=== PATIENT | female | born 1960 | race Caucasian/White ===

== ENCOUNTER 2017-06-30 15:12 | Inpatient (IN) | payer MEDICAID, SELFPAY ==
[2017-06-30] VITALS (8 sets, daily range): BP systolic 106–125; BP diastolic 60–69; PULSE 86–115; RESP 18–24; TEMP 36.5–37.3; O2SAT 80–97; BMI 20.9; BMI 21.2
--- NOTE | 2017-06-30 15:20 | XR_ITS ---
XR chest 2V HISTORY: Shortness of air with cough ITS.REASON: SOA ORDERING PHYSICIAN: Crow Herman PATIENT AGE: 56 years COMPARISON: 03/22/2017 FINDINGS: The cardiomediastinal silhouette and pulmonary vascularity are within normal limits. Postsurgical changes are present in the left upper lobe with suture line and scarring.. No lobar consolidation or collapse. There is mild hyperinflation with hyperlucency of the upper lobes consistent with COPD. No acute bony abnormalities. IMPRESSION: No acute finding. COPD with postsurgical changes
--- NOTE | 2017-06-30 16:14 | HMH.EDSOB ---
ED Disposition Clinical Impression: COPD exacerbation, Respiratory acidosis Disposition: Still a Patient Condition on Discharge: Fair Prescriptions: Azithromycin [Zithromax 250mg tab] 250 mg PO DIRECTED #6 tab methylPREDNISolone [Medrol] 32 mg PO DAILY #16 tab Referrals: Justen Briggs MD [Primary Care Provider] - - Critical Care Critical Care Time: No Attestation: On 06/30/17, the high probability of a clinically significant, sudden or life threatening deterioration of the following system(s) required my full and direct attention, intervention and personal management. The time I documented below is in addition to time spent performing reported procedures but includes the following listed in this critical care notation. Medical Decision Making - Medical Records Medical records reviewed: Yes: I reviewed the patient's medical records. Vital Signs: 06/30/17 15:44 Temperature 99.2 F Temperature Source Oral Pulse Rate [Right Brachial] 86 Respiratory Rate 24 Blood Pressure [Right Arm] 120/66 Blood Pressure Mean [Right Arm] 84 Blood Pressure Source [Right Arm] Automatic Cuff Blood Pressure Position [Right Arm] Supine 02 Sat by Pulse Oximetry 80 L Oxygen Delivery Method Room Air - Lab Data Lab Results 06/30/17 15:41: O2 % 26%. 1.5 lpm nc., ABG pH 7.34 L, ABG pCO2 51.8 H, ABG pO2 53.1 L, ABG HCO3 27.3 H, ABG Total CO2 28.9 H, ABG O2 Saturation 88 L, ABG Base Excess 1.5, Dg Test Acceptable 06/30/17 16:00: WBC 15.6 H, RBC 3.82 L, Hgb 12.6, Hct 38.6, MCV 101.0 H, MCH 33.0 H, MCHC 32.7, RDW 12.6, Plt Count 431 H, MPV 7.3 L, Neut % (Auto) 84.7 H, Lymph % (Auto) 8.5 L, [place] % (Auto) 6.5, Eos % (Auto) 0.3, Baso % (Auto) 0.1, Neut # (Auto) 13.2 H, Lymph # (Auto) 1.3, [place] # (Auto) 1.0, Eos # (Auto) 0.0, Baso # (Auto) 0.0, Total Counted 100, Neutrophils % (Manual) 89 H, Lymphocytes % (Manual) 6 L, Monocytes % (Manual) 5, Platelet Estimate Normal, RBC Morphology Normal 06/30/17 16:00: Sodium 139, Potassium 3.5, Chloride 101, Carbon Dioxide 32, Anion Gap 9.5, BUN 12, Creatinine 1.11 H, Estimated Creat Clear 54, Estimated GFR 51 L, Est GFR ( Amer) 62, Glucose 160 H, Calcium 9.2, Total Bilirubin 0.5, AST 29, ALT 44, Alkaline Phosphatase 119 H, Troponin I < 0.02, Total Protein 7.7, Albumin 3.2 L, Globulin 4.5 H, Albumin/Globulin Ratio 0.7 L 06/30/17 16:00: Lactic Acid 1.5 06/30/17 16:00: Influenza Type A Ag Negative, Influenza Type B Ag Negative Result diagrams: 06/30/17 16:00 06/30/17 16:00 Orders (Tests/Meds): ED MEDICATIONS Discontinued Medications Generic Name Dose Route Start Last Admin Trade Name Freq PRN Reason Stop Dose Admin Albuterol/Ipratropium 3 ml 06/30/17 16:17 06/30/17 16:24 Duoneb 3ml Neb IH 06/30/17 16:18 3 ml ONCE ONE Administration Azithromycin 500 mg/ Sodium 250 mls @ 250 mls/hr 06/30/17 16:28 06/30/17 16:34 Chloride IV 06/30/17 16:29 250 mls/hr ONCE ONE Administration Protocol Methylprednisolone Sodium Succinate 125 mg 06/30/17 16:17 06/30/17 16:24 Solu-Medrol 125mg/2ml Vial IV 06/30/17 16:18 125 mg ONCE ONE Administration ORDERS Category Date Time Status Blood Culture Stat Micro 06/30/17 16:16 Ordered Sputum Culture & Gram Stain Stat Micro 06/30/17 15:41 Ordered ECG Request by /Nse Stat Y 06/30/17 15:41 Ordered - Radiology Data #1 Image(s): Chest Image Reviewed: Yes I have reviewed radiologist's interpretation Preliminary Findings: Normal/NAD, Abnormal - Roberto Inquiry Pt receiving controlled substance: No Roberto was queried for this patient: No Medical Decision Making Narrative: Patient felt better after DuoNeb and steroids. We discussed discharge instruction. She is feeling comfortable with home treatment. 1730 patient changes her mind and agreed for admission. I called Dr. Gutierrez was gynaecological oncologist for Dr. Briggs who accepted the patient for steroid therapy and DuoNeb's. Patient was admitted in a he
[2017-06-30 16:19] LABS: Basophils % 0.1 % (0.1-2.0); Eosinophils % 0.3 % (0.1-12.0); Hematocrit 38.6 % (37.0-47.0); Hemoglobin 12.6 g/dL (12.2-16.2); Lymphocytes # 1.3 K/mm3 (0.7-4.5); Lymphocytes % 8.5 K/mm3 (10-50); Mean Corpuscular HGB Conc 32.7 g/dL (31.8-35.4); Mean Platelet Volume 7.3 fl (7.4-10.4); Monocytes % 6.5 % (1.7-9.3); Neutrophils # 13.2 K/mm3 (1.8-7.8); Neutrophils % 84.7 % (37.0-80.0); Platelet Count 431 K/mm3 (142-424); Red Blood Count 3.82 M/mm3 (4.20-5.40); Red Cell Distribution Width 12.6 % (11.5-17.5); White Blood Count 15.6 K/mm3 (4.8-10.8)
--- NOTE | 2017-06-30 16:19 | ED_ITS ---
ED Disposition Clinical Impression: COPD exacerbation, Respiratory acidosis Disposition: Still a Patient Condition on Discharge: Fair Prescriptions: Azithromycin [Zithromax 250mg tab] 250 mg PO DIRECTED #6 tab methylPREDNISolone [Medrol] 32 mg PO DAILY #16 tab Referrals: Justen Briggs MD [Primary Care Provider] - - Critical Care Critical Care Time: No Attestation: On 06/30/17, the high probability of a clinically significant, sudden or life threatening deterioration of the following system(s) required my full and direct attention, intervention and personal management. The time I documented below is in addition to time spent performing reported procedures but includes the following listed in this critical care notation. Medical Decision Making - Medical Records Medical records reviewed: Yes: I reviewed the patient's medical records. Vital Signs: 06/30/17 15:44 Temperature 99.2 F Temperature Source Oral Pulse Rate [Right Brachial] 86 Respiratory Rate 24 Blood Pressure [Right Arm] 120/66 Blood Pressure Mean [Right Arm] 84 Blood Pressure Source [Right Arm] Automatic Cuff Blood Pressure Position [Right Arm] Supine 02 Sat by Pulse Oximetry 80 L Oxygen Delivery Method Room Air - Lab Data Lab Results 06/30/17 15:41: O2 % 26%. 1.5 lpm nc., ABG pH 7.34 L, ABG pCO2 51.8 H, ABG pO2 53.1 L, ABG HCO3 27.3 H, ABG Total CO2 28.9 H, ABG O2 Saturation 88 L, ABG Base Excess 1.5, Dg Test Acceptable 06/30/17 16:00: WBC 15.6 H, RBC 3.82 L, Hgb 12.6, Hct 38.6, MCV 101.0 H, MCH 33.0 H, MCHC 32.7, RDW 12.6, Plt Count 431 H, MPV 7.3 L, Neut % (Auto) 84.7 H, Lymph % (Auto) 8.5 L, [place] % (Auto) 6.5, Eos % (Auto) 0.3, Baso % (Auto) 0.1, Neut # (Auto) 13.2 H, Lymph # (Auto) 1.3, [place] # (Auto) 1.0, Eos # (Auto) 0.0, Baso # (Auto) 0.0, Total Counted 100, Neutrophils % (Manual) 89 H, Lymphocytes % (Manual) 6 L, Monocytes % (Manual) 5, Platelet Estimate Normal, RBC Morphology Normal 06/30/17 16:00: Sodium 139, Potassium 3.5, Chloride 101, Carbon Dioxide 32, Anion Gap 9.5, BUN 12, Creatinine 1.11 H, Estimated Creat Clear 54, Estimated GFR 51 L, Est GFR ( Amer) 62, Glucose 160 H, Calcium 9.2, Total Bilirubin 0.5, AST 29, ALT 44, Alkaline Phosphatase 119 H, Troponin I < 0.02, Total Protein 7.7, Albumin 3.2 L, Globulin 4.5 H, Albumin/Globulin Ratio 0.7 L 06/30/17 16:00: Lactic Acid 1.5 06/30/17 16:00: Influenza Type A Ag Negative, Influenza Type B Ag Negative Result diagrams: 06/30/17 16:00 06/30/17 16:00 Orders (Tests/Meds): ED MEDICATIONS Discontinued Medications Generic Name Dose Route Start Last Admin Trade Name Freq PRN Reason Stop Dose Admin Albuterol/Ipratropium 3 ml 06/30/17 16:17 06/30/17 16:24 Duoneb 3ml Neb IH 06/30/17 16:18 3 ml ONCE ONE Administration Azithromycin 500 mg/ Sodium 250 mls @ 250 mls/hr 06/30/17 16:28 06/30/17 16: 34 Chloride IV 06/30/17 16:29 250 mls/hr ONCE ONE Administration Protocol Methylprednisolone Sodium Succinate 125 mg 06/30/17 16:17 06/30/17 16:24 Solu-Medrol 125mg/2ml Vial IV 06/30/17 16:18 125 mg ONCE ONE Administration ORDERS Category Date Time Status Blood Culture Stat Micro 06/30/17 16:16 Ordered Sputum Culture & Gram Stain Stat Micro 06/30/17 15:41 Ordered ECG Request by /Nse Stat Y 06/30/17 15:41 Ordered
[2017-06-30 16:22] LABS: MANUAL DIFFERENTIAL MANUAL DIFFERENTIAL (MANUAL DIFF)
[2017-06-30 16:31] LABS: Anion Gap 9.5 mEq/L (5-15); Blood Urea Nitrogen 12 mg/dL (7-18); Carbon Dioxide 32 mmol/L (21.0-32.0); Chloride 101 mmol/L (98-107); Creatinine Clearance Estimated 54 mL/min (0-300); Creatinine,Serum 1.11 mg/dL (0.55-1.02); Potassium 3.5 mmoL/L (3.5-5.1); Sodium 139 mmol/L (136-145); Troponin I < 0.02 ng/ml (0.00-0.06)
[2017-06-30 16:32] LABS: Alanine Aminotransferase 44 U/L (12-78); Albumin Level 3.2 gm/dL (3.4-5.0); Albumin/Globulin Ratio 0.7 (1.1-1.8); Alkaline Phosphatase 119 U/L (46-116); Aspartate Amino Transferase 29 U/L (15-37); Bilirubin,Total 0.5 mg/dL (0.2-1.0); Calcium 9.2 mg/dL (8.5-10.1); Estimated Glomerular Filt Rate 51 ml/min (>60); GFR (African American) 62 ML/MIN (>60); Globulin 4.5 gm/dl (1.3-3.2); Glucose 160 mg/dL (74-106); Total Protein,Serum 7.7 gm/dL (6.4-8.2)
[2017-06-30 16:34] LABS: Lactic Acid 1.5 mmol/L (0.4-2.0)
--- NOTE | 2017-06-30 16:34 | PC.NURSE ---
Removed O2 to recheck room air sat, within 3 minutes pt dropped to 84%. Reapplied oxygen at 2lnc.
[2017-06-30 16:46] LABS: ABG Base Excess 1.5 mmol/L (-2.4-2.3); ABG HCO3 27.3 mmhg (22.0-26.0); ABG Oxygen Saturation 88 % (90-100); ABG PH 7.34 mmol/L (7.35-7.45); ABG PO2 53.1 mmhg (80-100); ABG TCO2 28.9 mmhg (23-27)
[2017-06-30 16:47] LABS: Allen's Test Acceptable
[2017-06-30 16:48] LABS: Lymphocytes % 6 % (10-50); Monocytes % 5 % (2-9); Neutrophils % 89 % (42-76); Platelet Estimate Normal; RBC Morphology Normal; Total Cells Counted 100
[2017-06-30 16:48] LABS: ABG PCO2 51.8 mmhg (35.0-45.0)
--- NOTE | 2017-06-30 17:35 | PC.NURSE ---
Dr Meyers spoke to Dr Gutierrez regarding admission, MD agreed to admit.
[2017-06-30 18:08] LABS: Magnesium 1.6 mg/dL (1.4-2.2)
[2017-07-01] VITALS (7 sets, daily range): BP systolic 124–139; BP diastolic 62–68; PULSE 68–94; RESP 16–20; TEMP 36.7–37.2; O2SAT 90–96; BMI 21.1
--- NOTE | 2017-07-01 03:56 | PC.NURSE ---
pt is A&O x3, ambulates to and from bathroom well with no assist, pt states she is SOA both at rest and with activity, scattered wheezes and rhonchi noted on auscultation, pt has maintained O2 sats at 89 or greater on 1.5 L NC, pt states she utilizes a CPAP at night, this was brought in by family and pt is currently using CPAP and tolerating well, pt has had intermittent productive cough throughout shift producing thick yellow sputum, PRN breathing treatments and benzonate given per MAR producing little relief of symptoms, pt has rested only brief periods, bowel sounds are active, at approx. 0330 pt stated she was awakened with n/v, notified, no acute distress noted at this time, call light in reach, will continue to monitor.
--- NOTE | 2017-07-01 04:51 | PC.NURSE ---
N/V greatly related to cough, pt was given PRN breathing treatment, pt denies n/v at this time.
--- NOTE | 2017-07-01 07:06 | PC.NURSE ---
Addendum entered by Maya Mendez RN 07/01/17 07:12: Report given to Herlinda Mcclure RN Original Note: Report given to Светлана Mao RN
--- NOTE | 2017-07-01 07:11 | PC.NURSE ---
REPORT GIVEN TO Bishop ZIEGLER W/C
[2017-07-01 07:20] LABS: Anion Gap 11.8 mEq/L (5-15); Blood Urea Nitrogen 12 mg/dL (7-18); Carbon Dioxide 29 mmol/L (21.0-32.0); Chloride 102 mmol/L (98-107); Creatinine Clearance Estimated 70 mL/min (0-300); Creatinine,Serum 0.87 mg/dL (0.55-1.02); Estimated Glomerular Filt Rate 68 ml/min (>60); GFR (African American) 82 ML/MIN (>60); Glucose 181 mg/dL (74-106); Potassium 3.8 mmoL/L (3.5-5.1); Sodium 139 mmol/L (136-145)
--- NOTE | 2017-07-01 07:40 | HMH.PHAVTE ---
[facility] Pharmacy VTE Monitoring - Patient Demographics Admission date: 06/30/17 Report Date: 07/01/17 Time: 07:40 Allergies/Adverse Reactions: Patient Allergies cefdinir [CEFDINIR] Allergy (Unknown, Verified 05/31/17 08:46) I-ITCHING amoxicillin [From Augmentin] Allergy (Verified 05/31/17 08:46) clavulanic acid [From Augmentin] Allergy (Verified 05/31/17 08:46) Height: 1.68 m Weight: 59.619 kg Patient Problems: Current Active Problems COPD exacerbation (Acute) Respiratory acidosis (Acute) - VTE Risk Labs: VTE Related Lab Results Hgb 12.6 g/dL (12.2-16.2) 06/30/17 16:00 Hct 38.6 % (37.0-47.0) 06/30/17 16:00 Plt Count 431 K/mm3 (142-424) H 06/30/17 16:00 BUN 12 mg/dL (7-18) 07/01/17 06:30 Creatinine 0.87 mg/dL (0.55-1.02) D 07/01/17 06:30 Estimated Creat Clear 70 mL/min (0-300) 07/01/17 06:30 Was VTE Risk Assessment Performed: Yes VTE Score: 2 VTE Risk Level: Very Low Risk - Prophylaxis VTE Prophylaxis Ordered?: Yes Types of VTE Prophylaxis: TEDS Knee High Location of Applied Device: Bilateral Lower Extremeties - VTE Diagnosis Confirmed Treatment or plan recommended: Continue Current Treatment
--- NOTE | 2017-07-01 09:01 | HMH.HP ---
*Admission Date: 06/30/17 *Chief complaint: sob *History of present illness: this wf with progressive cough with yellowish sputum and has not improved with home meds presented to ed - years old white female with history of COPD oxygen dependent who continues to smoke until 3 days ago. Presented to the ED with 4 days history of shortness of air productive yellow sputum and wheeze. Denies having chest pain palpitations nausea vomiting or diarrhea. Denies leg edema [facility] History I have reviewed the patient's past medical history: Yes Medical History: Reports:: Aneurysm, Asthma, Chronic Obstructive Pulmonary Disease (COPD), Coronary Artery Disease, Hyperlipidemia, Myocardial Infarction Denies:: Cancer, Diabetes Mellitus Type 1, Diabetes Mellitus Type 2, MRSA Other Medical History: Reports: Arthritis, Fibromyalgia Other Surgeries: Yes: Hysterectomy-Total Amputation: No Fractures: No - *Social History Educational Level: Attended Grade School Smoking Status: Current some day smoker Tobacco Type: cigarettes # Packs/Day (cigarettes): 1 Alcohol Intake: never Substance Use Type: denies use Occupational Status: disabled Housing: house Household Members: none - Psychiatric History Expresses thoughts of harming self/others: None Suicide Plan Description: No Plan *Family Hx:: Coronary Artery Disease, Heart Attack, Thyroid Disorder Review of Systems - Review of Systems Review of systems:: pertinent systems reviewed and negative unless documented below - Constitutional Reports weakness, Denies fever(s) - Eyes Denies change in vision - ENT Reports dry mouth - *Cardiovascular Reports shortness of breath, Reports shortness of breath with activity - *Respiratory Reports change in phlegm color, Reports cough, Reports shortness of breath, Reports pain on inspiration, Denies coughing up blood - *Gastrointestinal Denies abdominal pain - *Musculoskeletal Denies joint pain - Integumentary/Breasts Denies rash - *Neurologic Denies seizure-like activity - Psychiatric Denies anxiety Meds Home Medications Medication Instructions Recorded Confirmed Type albuterol sulfate HFA 90 2 puff INHALATION Q4H PRN g 05/06/17 06/30/17 History mcg/actuation aerosol inhaler budesonide-formoterol HFA 80 2 puff INHALATION BID 05/06/17 06/30/17 History mcg-4.5 mcg/actuation aerosol inhaler buspirone 10 mg tablet 10 mg PO BID 05/06/17 06/30/17 History clopidogrel 75 mg tablet 75 mg PO DAILY 05/06/17 07/01/17 History cyclobenzaprine 10 mg tablet 10 mg PO BID tab 05/06/17 06/30/17 History dicyclomine 10 mg capsule 10 mg PO BID cap 05/06/17 06/30/17 History escitalopram 20 mg tablet 20 mg PO DAILY 05/06/17 07/01/17 History metoprolol succinate ER 100 mg 100 mg PO DAILY 05/06/17 07/01/17 History tablet,extended release 24 hr pravastatin 40 mg tablet 40 mg PO HS 05/06/17 07/01/17 History hydrocodone 10 mg-acetaminophen 1 tab PO Q8H tab 05/18/17 06/30/17 History 325 mg tablet Gabapentin [Gabapentin 800mg Tab] 800 mg PO QID 06/30/17 06/30/17 History Tizanidine HCl [Zanaflex 4mg 4 mg PO BID 07/01/17 07/01/17 History tablet] Allergies Allergy/AdvReac Type Severity Reaction Status Date / Time cefdinir [CEFDINIR] Allergy Unknown I-ITCHING Verified 05/31/17 08:46 amoxicillin [From Augmentin] Allergy Verified 05/31/17 08:46 clavulanic acid Allergy Verified 05/31/17 08:46 [From Augmentin] Exam Vital signs and Labs for Last 24 Hours: Temp Pulse Resp BP Pulse Ox 98.0 F 94 H 20 139/66 91 L 07/01/17 08:00 07/01/17 08:00 07/01/17 08:00 07/01/17 08:00 07/01/17 08:00 Laboratory Results - last 24 hr 07/01/17 06:30: Sodium 139, Potassium 3.8, Chloride 102, Carbon Dioxide 29, Anion Gap 11.8, BUN 12, Creatinine 0.87 D, Estimated Creat Clear 70, Estimated GFR 68, Est GFR ( Amer) 82 D, Glucose 181 H I & O for Last 24 hours: Intake & Output 06/28/17 06/29/17 06/30/17 07/01/17 11:
--- NOTE | 2017-07-01 10:41 | PC.NURSE ---
RECEIVED REPORT FROM RADHA JANSEN RN
--- NOTE | 2017-07-01 18:57 | PC.NURSE ---
REPORT GIVEN TO CHAPIS LOU RN
[2017-07-02] VITALS (9 sets, daily range): BP systolic 103–155; BP diastolic 54–73; PULSE 60–88; RESP 18–22; TEMP 36.8–36.9; O2SAT 90–95
--- NOTE | 2017-07-02 08:15 | HMH.ACPN2 ---
Internal Medicine - PN: Subj *Date: 07/02/17 *Time: 08:15 Interval history: doing better this am - oob in chair - still with sig cough Exam Vital signs and Labs for Last 24 Hours: Temp Pulse Resp BP Pulse Ox 98.2 F 79 22 155/69 94 L 07/02/17 07:54 07/02/17 07:54 07/02/17 07:54 07/02/17 07:54 07/02/17 07:54 I & O for Last 24 hours: Intake & Output 06/29/17 06/30/17 07/01/17 07/02/17 11:59 11:59 11:59 11:59 Intake Total 643 / 1193 2057 Balance 643 / 1193 2057 Weight 131 lb 7 oz 131 lb 6.998 oz Microbiology Reports for the Last 24 Hours: Microbiology 06/30/17 18:13 Sputum - Expectorated Sputum Gram Stain - Final 06/30/17 18:13 Sputum - Expectorated Sputum Sputum Culture - Preliminary - Constitutional no acute distress - *Routine HEENT Exam Head: Present: normocephalic Eye: Present: EOMI, PERRL ENT: Present: mucous membranes dry - *Routine Neck Exam Present: supple - *Routine Respiratory Exam Present: prolonged expiratory phase, wheezes. Absent: respiratory distress - *Routine Cardiovascular Exam Present: RRR, murmur - *Routine Abdominal Exam Present: soft - *Routine Extremities Exam Absent: calf tenderness - *Routine Skin Exam Present: intact - *Routine Neurological Exam Present: alert, oriented X3, CN II-XII intact - Routine Psychiatric Exam Present: normal affect Assessment and Plan (1) Bronchitis Current visit: Yes Status: Acute Category: Medical Code(s): J40 - Bronchitis, not specified as acute or chronic (2) COPD exacerbation Current visit: Yes Status: Acute Category: Medical Code(s): J44.1 - Chronic obstructive pulmonary disease with (acute) exacerbation (3) Tobacco use disorder Current visit: Yes Status: Acute Category: Medical Code(s): F17.200 - Nicotine dependence, unspecified, uncomplicated
--- NOTE | 2017-07-02 16:59 | PC.NURSE ---
PATIENT HAS BEEN UP AMBULATING IN ROOM TODAY, SHE HAS REMAINED SHORT OF BREATH. PATIENT DENIES ANY NEEDS, HER LAST O2 STAT WAS 95% ON 2 LITERS. VITAL SIGNS ARE STABLE, LUNG SOUNDS CONTINUE TO BE WHEEZES AND RHONCH WITH DIMINISHED T/O. NO DISTRESS NOTED AT THIS TIME, WILL CONTINUE TO MONITOR.
--- NOTE | 2017-07-02 18:59 | PC.NURSE ---
REPORT GIVEN TO GUNNAR BOYER
[2017-07-03 03:38] VITALS: O2SAT 91
--- NOTE | 2017-07-03 03:57 | PC.NURSE ---
PATIENT HAS SLEPT WELL THIS SHIFT. BEFORE GOING TO SLEEP FOR THE NIGHT, PATIENT AMBULATED IN THE [place] AROUND ENTIRE UNIT X1 WITH PORTABLE OXYGEN TANK. SHE DID GET SOA ON EXERTION, BUT WAS ABLE TO RECOVER WELL. SHE C/O CHRONIC LOW BACK PAIN WHICH SHE RECEIVES SCHEDULED PAIN MEDS FOR. PATIENT IS CURRENTLY IN BED SLEEPING WITH CPAP IN PLACE. NO OTHER PROBLEMS NOTED AT THIS TIME. VSS. WILL CONTINUE TO MONITOR. SAFETY MEASURES IN PLACE, CALL LIGHT IN REACH.
[2017-07-03 04:09] VITALS: BP 122/63; PULSE 55; RESP 16; TEMP 37.1; O2SAT 91
[2017-07-03 07:50] VITALS: BP 132/67; PULSE 67; RESP 20; TEMP 36.9; O2SAT 90
--- NOTE | 2017-07-03 08:35 | HMH.ACPN2 ---
Internal Medicine - PN: Subj *Date: 07/03/17 *Time: 08:35 Interval history: doing better- reviewed sputum culture with pt Exam Vital signs and Labs for Last 24 Hours: Temp Pulse Resp BP Pulse Ox 98.4 F 67 20 132/67 90 L 07/03/17 07:50 07/03/17 07:50 07/03/17 07:50 07/03/17 07:50 07/03/17 07:50 I & O for Last 24 hours: Intake & Output 06/30/17 07/01/17 07/02/17 07/03/17 11:59 11:59 11:59 11:59 Intake Total 643 / 1193 3696 / 3696 800 / 800 Balance 643 / 1193 3696 / 3696 800 / 800 Weight 131 lb 7 oz 131 lb 6.998 oz Microbiology Reports for the Last 24 Hours: Microbiology 06/30/17 18:13 Sputum - Expectorated Sputum Gram Stain - Final 06/30/17 18:13 Sputum - Expectorated Sputum Sputum Culture - Final Staphylococcus aureus Haemophilus influenzae - Constitutional no acute distress - *Routine HEENT Exam Head: Present: normocephalic Eye: Present: EOMI, PERRL ENT: Present: mucous membranes dry - *Routine Neck Exam Present: supple - *Routine Respiratory Exam Present: decreased breath sounds - *Routine Cardiovascular Exam Present: RRR, murmur - *Routine Abdominal Exam Present: soft - *Routine Extremities Exam Absent: edema - *Routine Skin Exam Present: intact - *Routine Neurological Exam Present: alert, oriented X3, CN II-XII intact - Routine Psychiatric Exam Present: normal affect Assessment and Plan (1) Bronchitis Current visit: Yes Status: Acute Category: Medical Code(s): J40 - Bronchitis, not specified as acute or chronic (2) COPD exacerbation Current visit: Yes Status: Acute Category: Medical Code(s): J44.1 - Chronic obstructive pulmonary disease with (acute) exacerbation (3) Tobacco use disorder Current visit: Yes Status: Acute Category: Medical Code(s): F17.200 - Nicotine dependence, unspecified, uncomplicated (4) Infection with methicillin-resistant Staphylococcus aureus (MRSA) Current visit: Yes Status: Acute Category: Medical Code(s): A49.02 - Methicillin resistant Staphylococcus aureus infection, unspecified site
--- NOTE | 2017-07-03 11:28 | HMH.PHACONS ---
- Pharmacy Consult Date: 07/03/17 Time: 11:28 Referring provider: DR. PUCKETT Reason for Consult:: VANCOMYCIN DOSING FOR MRSA IN SPUTUM Allergies and ADEs:: Allergies Allergy/AdvReac Type Severity Reaction Status Date / Time cefdinir [CEFDINIR] Allergy Unknown I-ITCHING Verified 05/31/17 08:46 amoxicillin [From Augmentin] Allergy Verified 05/31/17 08:46 clavulanic acid Allergy Verified 05/31/17 08:46 [From Augmentin] Home Medications:: Home Medications Medication Instructions Recorded Confirmed Type albuterol sulfate HFA 90 2 puff INHALATION Q4H PRN g 05/06/17 06/30/17 History mcg/actuation aerosol inhaler budesonide-formoterol HFA 80 2 puff INHALATION BID 05/06/17 06/30/17 History mcg-4.5 mcg/actuation aerosol inhaler buspirone 10 mg tablet 10 mg PO BID 05/06/17 06/30/17 History clopidogrel 75 mg tablet 75 mg PO DAILY 05/06/17 07/01/17 History cyclobenzaprine 10 mg tablet 10 mg PO BID tab 05/06/17 06/30/17 History dicyclomine 10 mg capsule 10 mg PO BID cap 05/06/17 06/30/17 History escitalopram 20 mg tablet 20 mg PO DAILY 05/06/17 07/01/17 History metoprolol succinate ER 100 mg 100 mg PO DAILY 05/06/17 07/01/17 History tablet,extended release 24 hr pravastatin 40 mg tablet 40 mg PO HS 05/06/17 07/01/17 History hydrocodone 10 mg-acetaminophen 1 tab PO Q8H tab 05/18/17 06/30/17 History 325 mg tablet Gabapentin [Gabapentin 800mg Tab] 800 mg PO QID 06/30/17 06/30/17 History Tizanidine HCl [Zanaflex 4mg 4 mg PO BID 07/01/17 07/01/17 History tablet] Height: 1.68 m Weight: 59.619 kg Laboratory Results:: NONE Medical History: Reports:: Aneurysm, Asthma, Chronic Obstructive Pulmonary Disease (COPD), Coronary Artery Disease, Hyperlipidemia, Myocardial Infarction Denies:: Cancer, Diabetes Mellitus Type 1, Diabetes Mellitus Type 2, MRSA Assessment and Plan (1) Bronchitis Current visit: Yes Status: Acute Category: Medical Code(s): J40 - Bronchitis, not specified as acute or chronic (2) COPD exacerbation Current visit: Yes Status: Acute Category: Medical Code(s): J44.1 - Chronic obstructive pulmonary disease with (acute) exacerbation (3) Tobacco use disorder Current visit: Yes Status: Acute Category: Medical Code(s): F17.200 - Nicotine dependence, unspecified, uncomplicated (4) Infection with methicillin-resistant Staphylococcus aureus (MRSA) Current visit: Yes Status: Acute Category: Medical Code(s): A49.02 - Methicillin resistant Staphylococcus aureus infection, unspecified site - Assessment and plan all Dx Assessment and Plan for all problems:: BASED ON PATIENT'S FACTORS, RECOMMEND STARTING WITH VANCOMYCIN 1250 MG Q18H AT THIS TIME. PHARMACY WILL FOLLOW UP DAILY AND ADJUST APPROPRIATE. FLAQUITA BENTON, PHARMD
[2017-07-03 15:33] VITALS: BP 122/59; PULSE 67; RESP 20; TEMP 36.7; O2SAT 95
--- NOTE | 2017-07-03 18:07 | PC.NURSE ---
PATIENT HAS BEEN UP TO THE CHAIR TODAY AND HAS ALSO AMBULATED IN THE HALLWAY ON 2 LITERS OF OXYGEN WITHOUT BECOMING EXTREMELY SHORT OF AIR. PATIENT RATED HER PAIN A 7-9 OUT OF 10 AND STATES IT IS GENERALIZED PAIN. PATIENT IS ON SCHEDULED PAIN MEDICATION. VITAL SIGNS ARE STABLE , LUNG SOUNDS CONTINUE TO BE WHEEZES. PATIENT DENIES ANY NEEDS, NO DISTRESS NOTED AT THIS TIME. WILL CONTINUE TO MONITOR.
--- NOTE | 2017-07-03 18:56 | PC.NURSE ---
REPORT GIVEN TO Jolie ELLIOTT RN
[2017-07-03 19:42] VITALS: BP 156/80; PULSE 61; RESP 20; TEMP 36.9; O2SAT 93
--- NOTE | 2017-07-04 02:36 | PC.NURSE ---
Laying in bed resting at this time. Has soa with walking to restroom,Even while wearing oxygen. Quickly returns to baseline when sits. Lungs has wheezes and Rhonchi throughout. Resp even at this time, can be labored when walking. Has no needs at this time. IV is Patent, bed locked in low position, side rails up x 2. Will continue to monitor.
[2017-07-04 03:11] VITALS: O2SAT 89
[2017-07-04 03:54] VITALS: BP 148/77; PULSE 50; RESP 20; TEMP 36.5; O2SAT 90
[2017-07-04 07:34] VITALS: BP 143/76; PULSE 58; RESP 20; TEMP 37; O2SAT 90
[2017-07-04 09:55] VITALS: PULSE 72; PULSE 76; O2SAT 72
--- NOTE | 2017-07-04 11:56 | HMH.DCSUM ---
General - General Admission date: 06/30/17 Discharge date: 07/04/17 HPI HPI: this wf with progressive cough with yellowish sputum and has not improved with home meds presented to ed - years old white female with history of COPD oxygen dependent who continues to smoke until 3 days ago. Presented to the ED with 4 days history of shortness of air productive yellow sputum and wheeze. Denies having chest pain palpitations nausea vomiting or diarrhea. Denies leg edema Hospital Course Hospital Course: pt with slow improvement and did well with iv steroids and bpap and nebulizer treatment - she had pos sputum and noted and abx were given- has inc activity and has o2 and nebs at home Objective Vital signs: Temp Pulse Resp BP Pulse Ox 98.6 F 76 20 143/76 72 L 07/04/17 07:34 07/04/17 09:55 07/04/17 07:34 07/04/17 07:34 07/04/17 09:55 no acute distress - *Routine HEENT Exam Head: Present: normocephalic Eye: Present: EOMI, PERRL ENT: Present: mucous membranes dry - *Routine Neck Exam Absent: JVD - *Routine Respiratory Exam Present: wheezes. Absent: respiratory distress - *Routine Cardiovascular Exam Present: RRR, murmur - *Routine Abdominal Exam Present: soft - *Routine Extremities Exam Absent: calf tenderness - *Routine Skin Exam Present: intact - *Routine Neurological Exam Present: alert, oriented X3, CN II-XII intact - Routine Psychiatric Exam Present: normal affect DS: Diagnosis - Discharge Diagnosis (1) Bronchitis Status: Acute (2) COPD exacerbation Status: Acute (3) Tobacco use disorder Status: Acute (4) Infection with methicillin-resistant Staphylococcus aureus (MRSA) Status: Acute Discharge Plan - Patient Discharge Instructions ACTIVITY: Continue current activity DIET: continue same diet Patient Instructions: Methicillin-Resistant Staph Infection - Follow up Plan Home Medications: Home Medications Medication Instructions Recorded Confirmed Type albuterol sulfate HFA 90 2 puff INHALATION Q4H PRN g 05/06/17 06/30/17 History mcg/actuation aerosol inhaler budesonide-formoterol HFA 80 2 puff INHALATION BID 05/06/17 06/30/17 History mcg-4.5 mcg/actuation aerosol inhaler buspirone 10 mg tablet 10 mg PO BID 05/06/17 06/30/17 History clopidogrel 75 mg tablet 75 mg PO DAILY 05/06/17 07/01/17 History cyclobenzaprine 10 mg tablet 10 mg PO BID tab 05/06/17 06/30/17 History dicyclomine 10 mg capsule 10 mg PO BID cap 05/06/17 06/30/17 History escitalopram 20 mg tablet 20 mg PO DAILY 05/06/17 07/01/17 History metoprolol succinate ER 100 mg 100 mg PO DAILY 05/06/17 07/01/17 History tablet,extended release 24 hr pravastatin 40 mg tablet 40 mg PO HS 05/06/17 07/01/17 History hydrocodone 10 mg-acetaminophen 1 tab PO Q8H tab 05/18/17 06/30/17 History 325 mg tablet Gabapentin [Gabapentin 800mg Tab] 800 mg PO QID 06/30/17 06/30/17 History Tizanidine HCl [Zanaflex 4mg 4 mg PO BID 07/01/17 07/01/17 History tablet] Prescriptions/Medication Reconciliation: New Azithromycin [Zithromax 250mg tab] 250 mg PO DIRECTED #6 tab methylPREDNISolone [Medrol] 32 mg PO DAILY #16 tab Buspirone HCl [Buspar 10mg tablet] 10 mg PO BID tablet Clopidogrel Bisulfate [Plavix 75mg Tab] 75 mg PO HS tablet Ondansetron HCl/Pf [Zofran 4mg/2mL vial] 4 mg IV Q6HP PRN vial PRN Reason: Nausea And Vomiting predniSONE [Prednisone 20mg Tab] 20 mg PO BID #12 tab Sulfamethoxazole/Trimethoprim [Bactrim DS tablet] 1 each PO BID #14 tablet Azithromycin [Zithromax 250mg tab] 250 mg PO DIRECTED 5 Days #6 tab Continue escitalopram 20 mg tablet 20 mg PO DAILY cyclobenzaprine 10 mg tablet 10 mg PO BID tab albuterol sulfate HFA 90 mcg/actuation aerosol inhaler 2 puff INHALATION Q4H PRN g PRN Reason: shortness of breath or wheezing dicyclomine 10 mg capsule 10 mg PO BID cap buspirone 10 mg t
--- NOTE | 2017-07-04 12:00 | P.DS_ITS ---
General - General Admission date: 06/30/17 Discharge date: 07/04/17 HPI HPI: this wf with progressive cough with yellowish sputum and has not improved with home meds presented to ed - years old white female with history of COPD oxygen dependent who continues to smoke until 3 days ago. Presented to the ED with 4 days history of shortness of air productive yellow sputum and wheeze. Denies having chest pain palpitations nausea vomiting or diarrhea. Denies leg edema Hospital Course Hospital Course: pt with slow improvement and did well with iv steroids and bpap and nebulizer treatment - she had pos sputum and noted and abx were given- has inc activity and has o2 and nebs at home Objective Vital signs: Temp Pulse Resp BP Pulse Ox 98.6 F 76 20 143/76 72 L 07/04/17 07:34 07/04/17 09:55 07/04/17 07:34 07/04/17 07:34 07/04/17 09:55 no acute distress - *Routine HEENT Exam Head: Present: normocephalic Eye: Present: EOMI, PERRL ENT: Present: mucous membranes dry - *Routine Neck Exam Absent: JVD - *Routine Respiratory Exam Present: wheezes. Absent: respiratory distress - *Routine Cardiovascular Exam Present: RRR, murmur - *Routine Abdominal Exam Present: soft - *Routine Extremities Exam Absent: calf tenderness - *Routine Skin Exam Present: intact - *Routine Neurological Exam Present: alert, oriented X3, CN II-XII intact - Routine Psychiatric Exam Present: normal affect DS: Diagnosis - Discharge Diagnosis (1) Bronchitis Status: Acute (2) COPD exacerbation Status: Acute (3) Tobacco use disorder Status: Acute (4) Infection with methicillin-resistant Staphylococcus aureus (MRSA) Status: Acute Discharge Plan - Patient Discharge Instructions ACTIVITY: Continue current activity DIET: continue same diet Patient Instructions: Methicillin-Resistant Staph Infection - Follow up Plan Home Medications: Home Medications Medication Instructions Recorded Confirmed Type albuterol sulfate HFA 90 2 puff INHALATION Q4H PRN g 05/06/17 06/30/17 History mcg/actuation aerosol inhaler budesonide-formoterol HFA 80 2 puff INHALATION BID 05/06/17 06/30/17 History mcg-4.5 mcg/actuation aerosol inhaler buspirone 10 mg tablet 10 mg PO BID 05/06/17 06/30/17 History clopidogrel 75 mg tablet 75 mg PO DAILY 05/06/17 07/01/17 History cyclobenzaprine 10 mg tablet 10 mg PO BID tab 05/06/17 06/30/17 History dicyclomine 10 mg capsule 10 mg PO BID cap 05/06/17 06/30/17 History escitalopram 20 mg tablet 20 mg PO DAILY 05/06/17 07/01/17 History metoprolol succinate ER 100 mg 100 mg PO DAILY 05/06/17 07/01/17 History tablet,extended release 24 hr pravastatin 40 mg tablet 40 mg PO HS 05/06/17 07/01/17 History hydrocodone 10 mg-acetaminophen 1 tab PO Q8H tab 05/18/17 06/30/17 History 325 mg tablet Gabapentin [Gabapentin 800mg Tab] 800 mg PO QID 06/30/17 06/30/17 History Tizanidine HCl [Zanaflex 4mg 4 mg PO BID 07/01/17 07/01/17 History tablet] Prescriptions/Medication Reconciliation: New Azithromycin [Zithromax 250mg tab] 250 mg PO DIRECTED #6 tab methylPREDNISolone [Medrol] 32 mg PO DAILY #16 tab Buspirone HCl [Buspar 10mg tablet] 10 mg PO BID tablet Clopidogrel Bisulfate [Plavix 75mg Tab] 75 mg PO HS tablet Onda
[2017-07-04 12:42] VITALS: O2SAT 77
--- NOTE | 2017-07-04 12:43 | PC.NURSE ---
PATIENT STATING 77% ON ROOM AIR AT REST.
--- NOTE | 2017-07-04 13:10 | SW/DCPLANNER ---
Received referral for this patient to have home oxygen due to room air sat of 77. Patient information has been faxed to [facility] and I have spoke with Rachel to confirm fax was received. 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
== END 2017-07-04 14:50 | disposition home or self-care (01) | DRG 192 ==
LOC: UTC 15:18 → ER 15:38 → 2ND 18:26
PROVIDERS: Admitting Provider Family Medicine; Emergency Provider Emergency Medicine; Family Provider Emergency Medicine; PCP Emergency Medicine; Visit Provider Emergency Medicine
DX: J44.0 Chronic obstructive pulmonary disease with (acute) lower respiratory infection (principal); Z99.81 Dependence on supplemental oxygen; J20.8 Acute bronchitis due to other specified organisms; J44.1 Chronic obstructive pulmonary disease with (acute) exacerbation; Z72.0 Tobacco use; A49.02 Methicillin resistant Staphylococcus aureus infection, unspecified site
CPT/HCPCS: 36415; 71046; 80048; 80053; 82803; 83605; 83735; 84484; 85007; 85025; 87040; 87070; 87077; 87184; 87186; 87205; 87275; 87276; 93005; 93041; 94640; 94761; 96365; 96367; 96374; 96375; 99284; J0456; J2405; J3370

== ENCOUNTER → 2017-12-20 08:07 | Outpatient (CLI) | payer MEDICAID, SELFPAY ==
--- NOTE | 2017-12-20 08:10 | US_ITS ---
US Arterial Ankle Brachial Ind History: Peripheral vascular disease, stents in the abdominal aorta, smoker, hypertension ORDERING PHYSICIAN: Agustín Jin PATIENT AGE: 57 years TECHNIQUE: Segmental pressures obtained of both right and left leg. These are compared to brachial blood pressure to yield index at each level sampled including summary EMIL. The data sheets from the procedure are available in PACS FINDINGS Rest study only performed today No prior studies available for comparison. Blood pressures reported are in millimeters mercury. RIGHT LEG EMIL = 1.0. RIGHT LEG TBI=.8 Brachial BP: 102 Thigh BP: 115 Calf BP: 117 Ankle PT: 119 Ankle DP : 119 Digit =76 LEFT LEG EMIL = 1.0 LEFT LEG TBI= .9 Brachial BPD: 116 Thigh BP: 103 Calf BP: 112 Ankle PT:113 Ankle DP: 110 Digit = 105 Pulses and waveforms: Normal IMPRESSION: The ABIs as reported above are within normal limits. Waveforms and pulses are also unremarkable.
== END ==
PROVIDERS: Family Provider Emergency Medicine; PCP Emergency Medicine; Visit Provider Thoracic Surgery (Cardiothoracic Vascular Surgery)
DX: I73.9 Peripheral vascular disease, unspecified (principal)
CPT/HCPCS: 93922

== ENCOUNTER → 2018-04-14 18:06 | Outpatient (CLI) | payer MEDICAID, SELFPAY ==
[2018-04-14 19:21] LABS: Basophils % 0.5 % (0.1-2.0); Eosinophils # 0.4 K/mm3 (0.0-0.4); Eosinophils % 5.1 % (0.1-12.0); Hematocrit 39.9 % (37.0-47.0); Hemoglobin 12.7 g/dL (12.2-16.2); Lymphocytes % 28.4 % (10-50); Mean Corpuscular HGB Conc 31.9 g/dL (31.8-35.4); Mean Corpuscular Hemoglobin 32.7 pg (27.0-31.2); Mean Corpuscular Volume 102.3 fl (81-99); Mean Platelet Volume 7.8 fl (7.4-10.4); Monocytes # 0.3 K/mm3 (0.1-1.0); Monocytes % 3.6 % (1.7-9.3); Neutrophils # 4.3 K/mm3 (1.8-7.8); Neutrophils % 62.6 % (37.0-80.0); Platelet Count 468 K/mm3 (142-424); White Blood Count 6.9 K/mm3 (4.8-10.8)
[2018-04-14 19:23] LABS: Alanine Aminotransferase 18 U/L (12-78); Albumin Level 3.8 gm/dL (3.4-5.0); Albumin/Globulin Ratio 1.3 (1.1-1.8); Alkaline Phosphatase 96 U/L (46-116); Anion Gap 13.5 mEq/L (5-15); Aspartate Amino Transferase 9 U/L (15-37); Bilirubin,Total 0.2 mg/dL (0.2-1.0); Blood Urea Nitrogen 15 mg/dL (7-18); Calcium 8.8 mg/dL (8.5-10.1); Carbon Dioxide 28 mmol/L (21.0-32.0); Chloride 107 mmol/L (98-107); Cholesterol 131 mg/dL (140-200); Creatinine,Serum 1.06 mg/dL (0.55-1.02); Estimated Glomerular Filt Rate 54 ml/min (>60); Free T4 (Free Thyroxine) 0.92 ng/dl (0.76-1.46); GFR (African American) 65 ML/MIN (>60); Glucose 92 mg/dL (74-106); HDL Cholesterol 33 mg/dL (29-89); LDL Cholesterol 70 mg/dL (0-130); Potassium 3.5 mmoL/L (3.5-5.1); Sodium 145 mmol/L (136-145); Thyroid Stimulating Hormone 0.74 uIU/ml (0.358-3.740); Total Protein,Serum 6.8 gm/dL (6.4-8.2); Triglycerides 139 mg/dL (30-200); VLDL Cholesterol 28 mg/dL (0-40)
[2018-04-17 14:00] LABS: Vitamin D 25 Hydroxy 17.5 ng/mL (30.0-100.0)
== END ==
PROVIDERS: Visit Provider Emergency Medicine
DX: J44.1 Chronic obstructive pulmonary disease with (acute) exacerbation (principal); E55.9 Vitamin D deficiency, unspecified
CPT/HCPCS: 80053; 80061; 82652; 84439; 84443; 85025

== ENCOUNTER → 2018-05-15 18:21 | Outpatient (CLI) | payer MEDICAID, SELFPAY ==
[2018-05-15 19:58] LABS: Amphetamine/Metha Screen,Urine Negative ng/mL (<1000); Barbiturates Screen,Urine Negative ng/mL (<200); Benzodiazepines Screen,Urine Negative ng/mL (<200); Cannabinoid Screen,Urine Positive ng/mL (<50); Cocaine Screen,Urine Negative ng/mL (<300); Methadone Screen,Urine Negative ng/mL (<300); Opiate Screen,Urine Positive ng/mL (<300); Phencyclidine Screen,Urine Negative ng/mL (<25)
== END ==
PROVIDERS: Visit Provider Emergency Medicine
DX: Z79.899 Other long term (current) drug therapy (principal)
CPT/HCPCS: 80305

== ENCOUNTER → 2018-05-24 14:34 | Outpatient (CLI) | payer MEDICAID, SELFPAY ==
--- NOTE | 2018-05-24 14:42 | XR_ITS ---
XR chest 2V HISTORY: ITS.REASON: cough ORDERING PHYSICIAN: Beatrice Garcia PATIENT AGE: 57 years COMPARISON: 06/30/2017 FINDINGS: The cardiomediastinal silhouette and pulmonary vascularity are within normal limits. COPD. Postsurgical changes left upper lobe. Lungs are otherwise clear. IMPRESSION: COPD, no change with no acute finding
== END ==
PROVIDERS: PCP Emergency Medicine; Visit Provider Nurse Practitioner Family
DX: R05 Cough (principal); R06.02 Shortness of breath; R06.2 Wheezing
CPT/HCPCS: 71046

== ENCOUNTER → 2018-06-16 10:11 | Outpatient (CLI) | payer MEDICAID, SELFPAY ==
--- NOTE | 2018-06-16 10:12 | CI_ITS ---
Cerebrovascular Exam Indications: 780.4 Dizziness and giddiness. IMPRESSIONS 1. The bilateral vertebral arteries are patent with normal antegrade flow. 2. Study suggests less than 20% stenosis involving the right internal carotid artery. No change from the study of 16-Sep-2016. 3. Study suggests 20-49% stenosis involving the left internal carotid artery. Disease progression from the study of 16-Sep-2016. History: Risk factors: Current tobacco use. Hypertension. Carotid duplex study. Complete study and Doppler flow study including spectral analysis, color and coronado scale imaging. Height: Height: 167.6cm. Height: 66in. Weight: Weight: 65.8kg. Weight: 144.7lb. Body mass index: BMI: 23.4kg/m^2. Body surface area: BSA: 1.76m^2. Tables: Arterial flow: + +--------+--------+ Location V sys V ed + +--------+--------+ Right CCA - proximal 110cm/s 30.6cm/s + +--------+--------+ Right CCA - distal 95.9cm/s 29.9cm/s + +--------+--------+ Right ECA 67.6cm/s 11.8cm/s + +--------+--------+ Right ICA - proximal 80.1cm/s 33cm/s + +--------+--------+ Right ICA - mid 121cm/s 55cm/s + +--------+--------+ Right ICA - distal 99cm/s 36.1cm/s + +--------+--------+ Right vertebral 58.9cm/s 17.3cm/s + +--------+--------+ Left CCA - proximal 99cm/s 29.1cm/s + +--------+--------+ Left CCA - distal 80.9cm/s 29.9cm/s + +--------+--------+ Left ECA 110cm/s 12.6cm/s + +--------+--------+ Left ICA - proximal 77.8cm/s 29.1cm/s + +--------+--------+ Left ICA - mid 84.9cm/s 36.9cm/s + +--------+--------+ Left ICA - distal 141cm/s 49.5cm/s + +--------+--------+ Left vertebral 51.1cm/s 11.8cm/s + +--------+--------+ Velocity ratios: + + + + + + Right, V sys Right, V ed Left, V sys Left, V ed + + + + + + Max ICA/dist CCA 1.26 1.84 1.74 1.66 + + + + + + (Report amended ) Electronically signed by: Dg Johnson [id number]
== END ==
PROVIDERS: PCP Emergency Medicine; Visit Provider Emergency Medicine
DX: R42 Dizziness and giddiness (principal)
CPT/HCPCS: 93880

== ENCOUNTER → 2018-06-20 12:52 | Outpatient (CLI) | payer MEDICAID, SELFPAY ==
--- NOTE | 2018-06-20 13:00 | CT_ITS ---
CT sinus wo con CLINICAL INDICATION: Chronic sinusitis ITS.REASON: sinusitis ORDERING PHYSICIAN: Trey Ibrahim MD PATIENT AGE: 57 years COMPARISON: None TECHNIQUE:Axial images obtained with sagittal and coronal reformats. All CT scans at the facility use one or more dose reduction, viz: automated exposure control, ma/kV adjustment per patient size (including targeted exams where dose is matched to indication, i.e. head), or iterative reconstruction technique. FINDINGS: The frontal sinuses are hypoplastic. There is moderate mucosal thickening of the right frontal sinus. There is opacification of the mid and anterior ethmoid air cells on the left and bilateral frontal ethmoid air cells. There is only minimal mucosal thickening of the sphenoid sinus on the left and of the left maxillary sinus. No air-fluid levels are evident. There is mild leftward nasal septal deviation. The ostiomeatal complex is occluded on the left and patent on the right. Fluid is present in both mastoid air cells. The middle ears do not appear opacified. Unremarkable orbits. The TMJs have an unremarkable appearance. IMPRESSION: 1. Paranasal sinus inflammatory changes as described above most severe in the left ethmoid sinus and right frontal sinus. There is occlusion of the left ostiomeatal complex and there is mild leftward nasal septal deviation. 2. Bilateral mastoid effusions
== END ==
PROVIDERS: PCP Emergency Medicine; Visit Provider Otolaryngology
DX: J32.9 Chronic sinusitis, unspecified (principal)
CPT/HCPCS: 70486

== ENCOUNTER → 2018-09-06 17:00 | Outpatient (CLI) | payer MEDICAID, SELFPAY ==
[2018-09-06 18:48] LABS: Amphetamine/Metha Screen,Urine Negative ng/mL (<1000); Barbiturates Screen,Urine Negative ng/mL (<200); Benzodiazepines Screen,Urine Negative ng/mL (<200); Cannabinoid Screen,Urine Positive ng/mL (<50); Cocaine Screen,Urine Negative ng/mL (<300); Methadone Screen,Urine Negative ng/mL (<300); Opiate Screen,Urine Negative ng/mL (<300); Phencyclidine Screen,Urine Negative ng/mL (<25)
[2018-09-14 07:20] LABS: Oxycodone (GC/MS) 596 ng/mL (Cutoff=100)
[2018-09-15 06:18] LABS: Opiates Negative (Cutoff=100); Oxymorphone (GC/MS) 496 ng/mL (Cutoff=100)
== END ==
PROVIDERS: Visit Provider Emergency Medicine
DX: M54.9 Dorsalgia, unspecified (principal); M54.16 Radiculopathy, lumbar region
CPT/HCPCS: 80305; 80361; 80365; G0480

== ENCOUNTER → 2018-09-28 10:14 | Outpatient (CLI) | payer MEDICAID, SELFPAY ==
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
== END ==
PROVIDERS: PCP Emergency Medicine; Visit Provider Emergency Medicine
DX: M54.5 Low back pain (principal)
CPT/HCPCS: 72148; 76376

== ENCOUNTER → 2018-11-06 18:38 | Outpatient (CLI) | payer MEDICAID, SELFPAY ==
[2018-11-06 19:13] LABS: Amphetamine/Metha Screen,Urine Negative ng/mL (<1000); Barbiturates Screen,Urine Negative ng/mL (<200); Benzodiazepines Screen,Urine Negative ng/mL (<200); Cannabinoid Screen,Urine Positive ng/mL (<50); Cocaine Screen,Urine Negative ng/mL (<300); Methadone Screen,Urine Negative ng/mL (<300); Opiate Screen,Urine Positive ng/mL (<300); Phencyclidine Screen,Urine Negative ng/mL (<25)
== END ==
PROVIDERS: Visit Provider Emergency Medicine
DX: Z79.899 Other long term (current) drug therapy (principal)
CPT/HCPCS: 80305

== ENCOUNTER → 2018-11-23 13:55 | Outpatient (POV) | payer MEDICAID, SELFPAY | PROVIDERS: Visit Provider Neurological Surgery | DX: Z00.00 Encounter for general adult medical examination without abnormal findings (principal) ==

== ENCOUNTER → 2018-12-25 13:55 | Outpatient (CLI) | payer MEDICAID, SELFPAY ==
--- NOTE | 2018-12-25 13:57 | CT_ITS ---
PROCEDURE: CT HEAD/BRAIN WO CON CLINICAL HISTORY: Headache Severe headache COMPARISON: No exams were available for comparison TECHNIQUE: Axial images obtained with sagittal and coronal reformats. All CT scans at the facility use one or more dose reduction, viz: automated exposure control, ma/kV adjustment per patient size (including targeted exams where dose is matched to indication, i.e. head), or iterative reconstruction technique. FINDINGS: No midline shift, mass effect, intracranial hemorrhage, or hydrocephalus. No acute calvarial findings. No mastoid effusion or sinus air-fluid level IMPRESSION: No acute finding Dictated by: Dg Johnson MD 12/25/2018 18:25 Signed by: <Electronically signed by Dg Johnson MD in [facility]> 12/25/2018 18:26
== END ==
PROVIDERS: PCP Emergency Medicine; Visit Provider Nurse Practitioner Family
DX: R51 Headache (principal)
CPT/HCPCS: 70450

== ENCOUNTER → 2019-01-05 17:41 | Outpatient (CLI) | payer MEDICAID, SELFPAY ==
[2019-01-05 18:08] LABS: Basophils % 0.6 % (0.1-2.0); Eosinophils # 0.1 K/mm3 (0.0-0.4); Eosinophils % 1.5 % (0.1-12.0); Hemoglobin 14.1 g/dL (12.2-16.2); Lymphocytes # 2.1 K/mm3 (0.7-4.5); Lymphocytes % 34.9 % (10-50); Mean Corpuscular HGB Conc 32.7 g/dL (31.8-35.4); Mean Corpuscular Hemoglobin 32.9 pg (27.0-31.2); Mean Corpuscular Volume 100.6 fl (81-99); Mean Platelet Volume 6.6 fl (7.4-10.4); Monocytes # 0.3 K/mm3 (0.1-1.0); Monocytes % 5.5 % (1.7-9.3); Neutrophils # 3.5 K/mm3 (1.8-7.8); Neutrophils % 57.6 % (37.0-80.0); Platelet Count 369 K/mm3 (142-424); Red Blood Count 4.28 M/mm3 (4.20-5.40); Red Cell Distribution Width 13.1 % (11.5-17.5); White Blood Count 6.1 K/mm3 (4.8-10.8)
[2019-01-05 18:12] LABS: Amphetamine/Metha Screen,Urine Negative ng/mL (<1000); Barbiturates Screen,Urine Negative ng/mL (<200); Benzodiazepines Screen,Urine Negative ng/mL (<200); Cannabinoid Screen,Urine Positive ng/mL (<50); Cocaine Screen,Urine Negative ng/mL (<300); Methadone Screen,Urine Negative ng/mL (<300); Opiate Screen,Urine Positive ng/mL (<300); Phencyclidine Screen,Urine Negative ng/mL (<25)
[2019-01-05 18:29] LABS: Alanine Aminotransferase 199 U/L (12-78); Albumin Level 4.1 gm/dL (3.4-5.0); Albumin/Globulin Ratio 1.4 (1.1-1.8); Alkaline Phosphatase 213 U/L (46-116); Anion Gap 13.4 mEq/L (5-15); Aspartate Amino Transferase 402 U/L (15-37); Bilirubin,Total 0.7 mg/dL (0.2-1.0); Blood Urea Nitrogen 12 mg/dL (7-18); Calcium 9.1 mg/dL (8.5-10.1); Carbon Dioxide 30 mmol/L (21.0-32.0); Chloride 100 mmol/L (98-107); Creatinine,Serum 0.94 mg/dL (0.55-1.02); Estimated Glomerular Filt Rate 62 ml/min (>60); Free T4 (Free Thyroxine) 1.06 ng/dl (0.76-1.46); GFR (African American) 75 ML/MIN (>60); Globulin 2.9 gm/dl (1.3-3.2); Glucose 103 mg/dL (74-106); Potassium 3.4 mmoL/L (3.5-5.1); Sodium 140 mmol/L (136-145); Thyroid Stimulating Hormone 1.94 uIU/ml (0.358-3.740)
[2019-01-05 18:32] LABS: Erythrocyte Sedimentation Rate 18 mm/hr (0-30)
[2019-01-07 17:06] LABS: Vitamin B12 >2000 pg/mL (232-1245)
[2019-01-11 09:13] LABS: Hep A Ab, IgM Negative (Negative); Hepatitis B Core Antibody IgM Negative (Negative); Hepatitis B Surface Antigen Negative (Negative)
[2019-01-12 11:40] LABS: Hepatitis B Surf Ab Quant 23.1 mIU/mL (Immunity>9.9); Hepatitis C Antibody <0.1 s/co ratio (0.0-0.9)
== END ==
PROVIDERS: Visit Provider Emergency Medicine
DX: M79.7 Fibromyalgia (principal); Z79.891 Long term (current) use of opiate analgesic; R94.5 Abnormal results of liver function studies
CPT/HCPCS: 80053; 80074; 80305; 82607; 82652; 84439; 84443; 85025; 85651; 86706

== ENCOUNTER → 2019-01-10 12:48 | Outpatient (CLI) | payer MEDICAID, SELFPAY ==
[2019-01-10 14:29] LABS: Alanine Aminotransferase 57 U/L (12-78); Albumin Level 3.9 gm/dL (3.4-5.0); Albumin/Globulin Ratio 1.3 (1.1-1.8); Alkaline Phosphatase 140 U/L (46-116); Anion Gap 13.5 mEq/L (5-15); Aspartate Amino Transferase 23 U/L (15-37); Bilirubin,Total 0.3 mg/dL (0.2-1.0); Blood Urea Nitrogen 11 mg/dL (7-18); Calcium 9.6 mg/dL (8.5-10.1); Carbon Dioxide 30 mmol/L (21.0-32.0); Chloride 104 mmol/L (98-107); Creatinine,Serum 0.83 mg/dL (0.55-1.02); Estimated Glomerular Filt Rate 71 ml/min (>60); GFR (African American) 86 ML/MIN (>60); Glucose 117 mg/dL (74-106); Potassium 4.5 mmoL/L (3.5-5.1); Sodium 143 mmol/L (136-145); Total Protein,Serum 6.9 gm/dL (6.4-8.2)
== END ==
PROVIDERS: Visit Provider Emergency Medicine
DX: E87.5 Hyperkalemia (principal); R94.5 Abnormal results of liver function studies
CPT/HCPCS: 36415; 80053

== ENCOUNTER → 2019-01-29 09:41 | Outpatient (CLI) | payer MEDICAID, SELFPAY ==
--- NOTE | 2019-01-29 09:48 | XR_ITS ---
PROCEDURE: XR CHEST 2V CLINICAL HISTORY: cough Persistent cough and congestion COMPARISON: WO CT CHEST W/O CONTRAST from 09/25/2014 CXR CHEST(2 VIEWS-NOT PORTABLE) from 03/22/2017 CXR2V XR chest 2V from 06/30/2017 CXR2V XR chest 2V from 05/24/2018 FINDINGS: The cardiomediastinal silhouette and pulmonary vascularity are within normal limits. Postsurgical changes in the left upper lobe. Lungs are otherwise clear. No acute bony abnormalities. IMPRESSION: No change with no acute finding Dictated by: Dg Johnson MD 01/29/2019 11:33 Electronically signed by Dg Johnson MD in [facility] 01/29/2019 11:33
[2019-01-29 10:01] LABS: Blood Urea Nitrogen 15 mg/dL (7-18); Creatinine,Serum 0.86 mg/dL (0.55-1.02); Estimated Glomerular Filt Rate 68 ml/min (>60); GFR (African American) 83 ML/MIN (>60)
[2019-01-29 12:09] LABS: Hemoglobin A1C 5.1 % (0.0-7.0)
== END ==
PROVIDERS: Emergency Medicine; Visit Provider Physician Assistant
DX: R73.9 Hyperglycemia, unspecified (principal); R05 Cough; F17.200 Nicotine dependence, unspecified, uncomplicated
CPT/HCPCS: 36415; 71046; 82565; 83036; 84520

== ENCOUNTER → 2019-02-14 13:25 | Outpatient (CLI) | payer MEDICAID, SELFPAY ==
--- NOTE | 2019-02-14 13:35 | CT_ITS ---
PROCEDURE: CT CHEST WO CON CLINICAL INDICATION: cough Cough, lung fungus, shortness of air, chest pain COMPARISON: [facility] CT CHEST W/O CONTRAST from 09/25/2014 TECHNIQUE: Axial images obtained with sagittal and coronal reformats. All CT scans at the facility use one or more dose reduction, viz: automated exposure control, ma/kV adjustment per patient size (including targeted exams where dose is matched to indication, i.e. head), or iterative reconstruction technique. FINDINGS: Scattered small mediastinal lymph nodes are present. No mediastinal adenopathy. No mediastinal or hilar mass or adenopathy. Normal heart size. There is scattered small calcified mediastinal and hilar lymph nodes. Pericardium is minimally thickened anteriorly. There is a focal area of coarse calcification involving the proximal descending thoracic aorta. This area of calcification measures 1.9 x 1.2 by 1.6 cm and is causing approximately 50 percent luminal narrowing of the proximal descending thoracic aorta. There are changes of COPD with scattered areas of scarring most prominent in the upper lobes with some calcification in the areas of scarring. Postsurgical change left upper lobe this is not significantly changed. There is mild diffuse bronchial thickening. No cavitating nodules are evident. No lobar consolidation or collapse. There is a small left adrenal nodule at 1.4 cm consistent with an adenoma. There is an aortic stent present just inferior to the level of the renal arteries. No acute bony anomaly. IMPRESSION: 1. COPD with fibrotic changes overall not significantly changed. 2. Increasing calcific plaque in the proximal descending thoracic aorta causing approximately 50 percent luminal stenosis. Suggest CT angiogram of the aorta for further evaluation. 3. No cavitating lesions. No areas of pneumonia apparent. Dictated by: Dg Johnson MD 02/16/2019 06:32 Electronically signed by Dg Johnson MD in [place] 02/16/2019 06:32
== END ==
PROVIDERS: PCP Emergency Medicine; Visit Provider Emergency Medicine
DX: R05 Cough (principal); F17.200 Nicotine dependence, unspecified, uncomplicated
CPT/HCPCS: 71250

== ENCOUNTER → 2019-02-22 08:42 | Outpatient (CLI) | payer MEDICAID, SELFPAY ==
--- NOTE | 2019-02-22 08:57 | CT_ITS ---
Procedure: CT ANGIO ABDOMEN CLINICAL HISTORY: aaa Follow-up abdominal aortic aneurysm repair COMPARISON: ABDPELW/O CT ABD PELVIS W/O CONTRAST from 07/20/2016 TECHNIQUE: IV Contrast: 100ml Optiray 350 Axial images obtained with sagittal and coronal reformats. All CT scans at the facility use one or more dose reduction, viz: automated exposure control, ma/kV adjustment per patient size (including targeted exams where dose is matched to indication, i.e. head), or iterative reconstruction technique. FINDINGS: There has been prior aortoiliac stent graft placed. The stent begins just below the level of the renal arteries and extends to just above the aortic bifurcation. There is no evidence of aneurysm or endograft leak. No focal stenotic lesions are evident. No evidence of celiac or superior mesenteric artery stenosis. There may be some stenosis of the ostium of the right renal artery of approximately 40-50 percent. Non angiographic prior cholecystectomy. Mild nodularity of the left adrenal gland unchanged tiny umbilical hernia containing fat IMPRESSION: Overall no significant change with no acute finding. Status post aortic stent graft placement no evidence of recurrence aneurysm or endograft leak. Dictated by: Dg Johnson MD 02/22/2019 17:54 Electronically signed by Dg Johnson MD in [facility] 02/23/2019 12:53
[2019-02-22 09:06] LABS: Blood Urea Nitrogen 9 mg/dL (7-18); Estimated Glomerular Filt Rate 57 ml/min (>60); GFR (African American) 69 ML/MIN (>60)
== END ==
PROVIDERS: Visit Provider Internal Medicine Cardiovascular Disease
DX: Z98.890 Other specified postprocedural states (principal); E78.5 Hyperlipidemia, unspecified; I25.2 Old myocardial infarction; I65.29 Occlusion and stenosis of unspecified carotid artery; J44.9 Chronic obstructive pulmonary disease, unspecified; R07.9 Chest pain, unspecified; F17.200 Nicotine dependence, unspecified, uncomplicated
CPT/HCPCS: 36415; 74175; 82565; 84520; Q9967

== ENCOUNTER → 2019-02-26 07:28 | Outpatient (CLI) | payer MEDICAID, SELFPAY ==
--- NOTE | 2019-02-26 | CA_ITS ---
APPROVED REPORT Exam: Pharmacologic Technologist: Pura Junior Ht: 5 ft 6 in Wt: 135 lbs BSA: 1.69 m2 HR: 68 bpm BP: 102/55 mmHg Indications: CAD Medical History Medications: Aspirin,,,,, Metoprolol,,,,, Pravastatin,,,,, Gabapentin,,,,, Vitamin D3,,,,, Albuterol,,,,, CloPIdogrel,,,,, OxYCODONE,,,,, LoraTidine,,,,, Stress Test Details Test: LEXISCAN HR Resting HR: 69 bpm Max Heart Rate (APMHR): 164 bpm Max HR Achieved: 99 bpm Target HR (85% APMHR): 139 bpm % of APMHR: 60 Recovery HR: 90 bpm BP Resting BP: 102.0/55.0 mmHg Max BP: 126.0/56.0 mmHg Recovery BP: 107.0/59.0 mmHg ECG Clinical Reason for Termination: Completed Protocol Exercise duration: 04:00 min Highest Stage Achieved: Stress ECG Conclusion Resting ECG: Normal sinus rhythm, question septal infarct. Symptoms: No chest pain Arrhythmias/Ectopy: None ST-T Changes: Less than 1.[address] segment changes. Conclusion: Non-Diagnostic. See the nuclear report for further information. Electronically signed by : Lawrence Veliz, 02/28/2019 15:07:30
--- NOTE | 2019-02-26 07:32 | NM_ITS ---
APPROVED REPORT Exam: Nuclear Stress Test Indication: SOB, Palpitations, HTN, High cholesterol, Tobacco use, Family history Patient Location: Outpatient Stress Tech: Puraalvino Junior MO Tech:Myranda Henderson, ARRT, RT (R)(N) Ht: 5 ft 6 in Wt: 135 lbs Bra Size: 36D HR: 68 bpm BP: 102/55 mmHg BSA: 1.69 m2 BMI: 21.7 History: SOB, Palpitations, HTN, High cholesterol, Tobacco use, Family history Procedure: Patient received a 0.4 mg of intravenous Lexiscan, resting heart rate 68 bpm, resting blood pressure 102/55 mmHg, with Lexiscan maximum heart rate achived was 99 bpm which is % of the maximum predicted heart rate and blood pressure was 126/56 mmHg. With Lexiscan, patient denied any complaint of chest pain. Cardiac Stress and Resting SPECT Images: Cardiac Stress and Resting SPECT images were obtained using technetium 99m Myoview 30.8 mCi stress and 10.54 mCi at rest. Normal ejection fraction of 64%. No obvious wall motion abnormality. No fixed or reversible defects Conclusion: Normal ejection fraction of 64%. No evidence of ischemia or infarction Electronically signed by : Dg Johnson MD 02/28/2019 10:01:09
--- NOTE | 2019-02-26 07:49 | HMH.ITSHM ---
Current Home Medications as stated by this patient Benita Wood or sales representative. []GABAPENTIN LORATADINE CLOPIDOGREL OXYCODONE METOPROLOL PRAVASTATIN VITAMIN D3 ASA ALBUTEROL
== END ==
PROVIDERS: PCP Emergency Medicine; Visit Provider Internal Medicine Cardiovascular Disease
DX: R07.9 Chest pain, unspecified (principal); I25.2 Old myocardial infarction
CPT/HCPCS: 78452; 93017; 93306; A9502; J2785

== ENCOUNTER → 2019-03-06 17:27 | Outpatient (CLI) | payer MEDICAID, SELFPAY ==
[2019-03-06 18:29] LABS: Amphetamine/Metha Screen,Urine Negative ng/mL (<1000); Barbiturates Screen,Urine Negative ng/mL (<200); Benzodiazepines Screen,Urine Negative ng/mL (<200); Cannabinoid Screen,Urine Positive ng/mL (<50); Cocaine Screen,Urine Negative ng/mL (<300); Methadone Screen,Urine Negative ng/mL (<300); Opiate Screen,Urine Negative ng/mL (<300); Phencyclidine Screen,Urine Negative ng/mL (<25)
[2019-03-16 10:15] LABS: Oxycodone (GC/MS) 1903 ng/mL (Cutoff=100)
[2019-03-16 17:15] LABS: Opiates Negative (Cutoff=100); Oxymorphone (GC/MS) 509 ng/mL (Cutoff=100)
== END ==
PROVIDERS: Visit Provider Emergency Medicine
DX: Z79.899 Other long term (current) drug therapy (principal)
CPT/HCPCS: 80305; 80361; 80365; G0480

== ENCOUNTER 2019-04-18 15:49 | Inpatient (IN) ==
--- NOTE | 2019-04-18 18:13 | History & Physical Report ---
*Admission Date: 04/18/19 *Chief complaint: soa *History of present illness: 58-year-old female presented to primary care office with complaints of shortness of air. Patient's O2 sat in primary care office was 79% when rechecked it was 80% with increased respiratory rate. Patient states she was having shortness of air with cough. Patient states she is unable to do much activities due to shortness of air. Patient was sent to the hospital for direct admission for COPD ex and rule out pneumonia. [facility] History I have reviewed the patient's past medical history: Yes Medical History: Reports:: Aneurysm, Arrhythmia, Asthma, Chronic Obstructive Pulmonary Disease (COPD), Coronary Artery Disease, Heart Murmur, Hyperlipidemia, Hypertension, Myocardial Infarction Denies:: Cancer, Diabetes Mellitus Type 1, Diabetes Mellitus Type 2, MRSA *Have you ever received a pneumonia vaccine?: Yes *Have you received a flu vaccine this season?: Yes Other Medical History: Reports: Arthritis, Fibromyalgia Other Surgeries: Yes: Angiogram, Cardiac Catheterization, Cholecystectomy, Colonoscopy, Coronary Stent, Hysterectomy-Total Amputation: No Fractures: No - *Social History Smoking Status: Current every day smoker Tobacco Type: cigarettes # Packs/Day (cigarettes): 1 #Yrs smoked (if former smoker): 35 Alcohol Intake: never Substance Use Type: denies use *Occupational Status:: disabled Housing: apartment Household Members: none *Travel in the last 8 weeks: None Family Hx:: Coronary Artery Disease, Heart Attack, Thyroid Disorder Review of Systems - Review of Systems Review of systems:: pertinent systems reviewed and negative unless documented below - Constitutional Reports malaise, Denies body ache(s), Denies fever(s) - Eyes Denies change in vision - ENT Denies bleeding gums - *Cardiovascular Reports shortness of breath, Denies chest pain at rest, Denies excessive sweating - *Respiratory Reports cough, Reports shortness of breath, Reports shortness of breath with activity - *Gastrointestinal Denies nausea, Denies vomiting - *Genitourinary Denies urinary urgency - *Musculoskeletal Reports muscle weakness, Denies decreased muscle mass - Integumentary/Breasts Denies rash - *Neurologic Denies abnormal movements - Psychiatric Denies anxiety - Endocrine Denies flushing - Hematologic/Lymphatic Denies enlarged lymph nodes - Allergic/Immunologic Denies lip swelling Meds Home Medications Medication Instructions Recorded Confirmed Type aspirin 81 mg tablet,delayed 81 mg PO DAILY 02/08/19 04/18/19 History release clopidogrel 75 mg tablet 75 mg PO DAILY #90 tab 02/09/19 04/18/19 Rx polyethylene glycol 3350 17 17 g PO DAILY PRN #119 g 02/09/19 04/18/19 Rx gram/dose oral powder oxycodone 10 mg tablet 10 mg PO QID PRN #120 tab 03/06/19 04/18/19 Rx ALBUTEROL HFA 90 MCG INHALER See Rx Instructions .ROUTE QIDP PRN 04/18/19 04/18/19 History Cholecalciferol (Vitamin D3) 1,000 unit PO DAILY 04/18/19 04/18/19 History [Vitamin D3 1,000 Unit Cap] Ergocalciferol (Vitamin D2) 50,000 unit PO QWEEK 04/18/19 04/18/19 History [Drisdol] Fluticasone/Vilanterol [Breo 1 inh IH DAILY 04/18/19 04/18/19 History Ellipta 100-25 Mcg INH] Gabapentin 800 mg PO QID 04/18/19 04/18/19 History Loratadine [Allergy Relief] 10 mg PO DAILY 04/18/19 04/18/19 History Metoprolol Succinate 50 mg PO DAILY 04/18/19 04/18/19 History Nicotine [Nicotine Patch 21 mg TD DAILY 04/18/19 04/18/19 History 21mg/24hrs] Pravastatin Sodium [Pravachol] 40 mg PO HS 04/18/19 04/18/19 History Allergies Allergy/AdvReac Type Severity Reaction Status Date / Time cefdinir [CEFDINIR] Allergy Unknown I-ITCHING Verified 04/18/19 14:18 amoxicillin [From Augmentin] Allergy Verified 04/18/19 14:18 clavulanic acid Allergy Verified 04/18/19 14:18 [From Augmentin] Exam - *Routine HEENT Exam Head: Present: normocephalic Eye: Present: PERRL ENT: Present: mucous membranes moist - *Routine Neck Exam Present: supple. Absent: lymphadenopathy - *Routine Respiratory Exam Present: decreased breath sounds, wheezes, diminished air movement - *Routine Cardiovascular Exam Present: RRR - *Routine Abdominal Exam Present: soft, normoactive bowel sounds. Absent: tenderness - *Routine Extremities Exam Present: full ROM. Absent: cyanosis, clubbing, edema - *Routine Skin Exam Present: warm. Absent: rash - *Routine Neurological Exam Present: alert, oriented X3 - Routine Psychiatric Exam Present: normal affect Assessment and Plan (1) Pneumothorax Current visit: Yes Status: Acute Qualifiers: Pneumothorax type: unspecified pneumothorax Qualified Code(s): J93.9 - Pneumothorax, unspecified Category: Medical Code(s): J93.9 - Pneumothorax, unspecified (2) COPD exacerbation Current visit: No Status: Acute Category: Medical Code(s): J44.1 - Chronic obstructive pulmonary disease with (acute) exacerbation - Assessment and plan all Dx Assessment and Plan for all problems:: Dr. Briggs seen pt in office prior to sending to [facility] for admit all orders per [facility] consult
[2019-04-18 18:49] LABS: Basophils % 0.6 % (0.1-2.0); Eosinophils # 0.1 K/mm3 (0.0-0.4); Eosinophils % 1.9 % (0.1-12.0); Hematocrit 39.7 % (37.0-47.0); Hemoglobin 12.6 g/dL (12.2-16.2); Lymphocytes # 1.3 K/mm3 (0.7-4.5); Lymphocytes % 21.2 % (10-50); Mean Corpuscular HGB Conc 31.6 g/dL (31.8-35.4); Monocytes # 0.3 K/mm3 (0.1-1.0); Monocytes % 4.7 % (1.7-9.3); Neutrophils # 4.3 K/mm3 (1.8-7.8); Neutrophils % 71.5 % (37.0-80.0); Platelet Count 398 K/mm3 (142-424); Red Cell Distribution Width 13.5 % (11.5-17.5); White Blood Count 5.9 K/mm3 (4.8-10.8)
[2019-04-18 19:21] LABS: Albumin Level 3.5 gm/dL (3.4-5.0); Albumin/Globulin Ratio 1.1 (1.1-1.8); Anion Gap 12.6 mEq/L (5-15); Bilirubin,Total 0.4 mg/dL (0.2-1.0); Calcium 8.5 mg/dL (8.5-10.1); Globulin 3.1 gm/dl (1.3-3.2); Total Protein,Serum 6.6 gm/dL (6.4-8.2)
[2019-04-19 06:14] LABS: Basophils % 0.1 % (0.1-2.0); Eosinophils % 0.3 % (0.1-12.0); Hematocrit 36.7 % (37.0-47.0); Hemoglobin 12.2 g/dL (12.2-16.2); Lymphocytes # 0.3 K/mm3 (0.7-4.5); Mean Corpuscular HGB Conc 33.3 g/dL (31.8-35.4); Mean Corpuscular Volume 98.7 fl (81-99); Mean Platelet Volume 7.8 fl (7.4-10.4); Monocytes % 1.3 % (1.7-9.3); Neutrophils # 2.7 K/mm3 (1.8-7.8); Neutrophils % 87.3 % (37.0-80.0); Platelet Count 378 K/mm3 (142-424); Red Blood Count 3.72 M/mm3 (4.20-5.40); Red Cell Distribution Width 13.5 % (11.5-17.5); White Blood Count 3.1 K/mm3 (4.8-10.8)
[2019-04-19 06:22] LABS: Albumin Level 3.2 gm/dL (3.4-5.0); Bilirubin,Total 0.3 mg/dL (0.2-1.0); Calcium 8.6 mg/dL (8.5-10.1); Globulin 3.1 gm/dl (1.3-3.2); Total Protein,Serum 6.3 gm/dL (6.4-8.2)
[2019-04-19 07:31] LABS: Lymphocytes % 8 % (10-50); Monocytes % 1 % (2-9); Neutrophils % 91 % (42-76); Nucleated Red Blood Cells 2; Total Cells Counted 100
[2019-04-19 07:32] LABS: RBC Morphology Normal
--- NOTE | 2019-04-19 07:44 | Pharmacy Consult Notes ---
[facility] Pharmacy VTE Monitoring - Patient Demographics Admission date: 04/18/19 Report Date: 04/19/19 Time: 07:44 Allergies/Adverse Reactions: Patient Allergies cefdinir [CEFDINIR] Allergy (Unknown, Verified 04/18/19 14:18) I-ITCHING amoxicillin [From Augmentin] Allergy (Verified 04/18/19 14:18) clavulanic acid [From Augmentin] Allergy (Verified 04/18/19 14:18) Height: 1.68 m Weight: 60.951 kg - VTE Risk Labs: VTE Related Lab Results Hgb 12.2 g/dL (12.2-16.2) 04/19/19 05:50 Hct 36.7 % (37.0-47.0) L 04/19/19 05:50 Plt Count 378 K/mm3 (142-424) 04/19/19 05:50 BUN 13 mg/dL (7-18) D 04/19/19 05:50 Creatinine 0.81 mg/dL (0.55-1.02) 04/19/19 05:50 Estimated Creat Clear 75 mL/min (50-200) 04/19/19 05:50 Was VTE Risk Assessment Performed: Yes VTE Score: 4 VTE Risk Level: Low Risk - Prophylaxis VTE Prophylaxis Ordered?: Yes Types of VTE Prophylaxis: TEDS Knee High Location of Applied Device: Bilateral Lower Extremeties - VTE Diagnosis Confirmed Treatment or plan recommended: Continue Current Treatment
--- NOTE | 2019-04-19 09:24 | Progress Note ---
Internal Medicine - PN: Subj *Date: 04/19/19 *Time: 09:17 Interval history: laying in bed states she feels slightly better. o2 in place Exam Vital signs and Labs for Last 24 Hours: Temp Pulse Resp BP Pulse Ox 98.0 F 78 18 123/66 93 L 04/19/19 08:00 04/19/19 08:00 04/19/19 08:00 04/19/19 08:00 04/19/19 08:00 Laboratory Results - last 24 hr 04/18/19 18:39: Sodium 143, Potassium 3.6, Chloride 105, Carbon Dioxide 29, Anion Gap 12.6, BUN 9, Creatinine 0.81, Estimated Creat Clear 76, Estimated GFR 73, Est GFR ( Amer) 89, Glucose 133 H, Calcium 8.5, Total Bilirubin 0.4, AST 8 L, ALT 17, Alkaline Phosphatase 92, Total Protein 6.6, Albumin 3.5, Globulin 3.1, Albumin/Globulin Ratio 1.1 04/18/19 18:39: WBC 5.9, RBC 3.90 L, Hgb 12.6, Hct 39.7, MCV 102.0 H, MCH 32.2 H , MCHC 31.6 L, RDW 13.5, Plt Count 398, MPV 8.0, Neut % (Auto) 71.5, Lymph % (Auto) 21.2, [place] % (Auto) 4.7, Eos % (Auto) 1.9, Baso % (Auto) 0.6, Neut # (Auto) 4.3, Lymph # (Auto) 1.3, [place] # (Auto) 0.3, Eos # (Auto) 0.1, Baso # (Auto) 0.0 04/18/19 18:39: Troponin I < 0.02 04/18/19 18:39: Lactate 0.6 04/18/19 21:26: Troponin I < 0.02 04/19/19 00:21: Troponin I < 0.02 04/19/19 05:50: WBC 3.1 L D, RBC 3.72 L, Hgb 12.2, Hct 36.7 L, MCV 98.7, MCH 32.9 H, MCHC 33.3, RDW 13.5, Plt Count 378, MPV 7.8, Neut % (Auto) 87.3 H, Lymph % (Auto) 11.0, [place] % (Auto) 1.3 L, Eos % (Auto) 0.3, Baso % (Auto) 0.1, Neut # (Auto) 2.7, Lymph # (Auto) 0.3 L, [place] # (Auto) 0.0 L, Eos # (Auto) 0.0, Baso # (Auto) 0.0, Total Counted 100, Neutrophils % (Manual) 91 H, Lymphocytes % (Manual) 8 L, Monocytes % (Manual) 1 L, Nucleated RBCs 2, Platelet Estimate Normal, RBC Morphology Normal 04/19/19 05:50: Sodium 143, Potassium 4.0, Chloride 105, Carbon Dioxide 28, Anion Gap 14.0, BUN 13 D, Creatinine 0.81, Estimated Creat Clear 75, Estimated GFR 73, Est GFR ( Amer) 89, Glucose 176 H D, Calcium 8.6, Total Bilirubin 0.3, AST 6 L, ALT 19, Alkaline Phosphatase 86, Total Protein 6.3 L, Albumin 3.2 L, Globulin 3.1, Albumin/Globulin Ratio 1.0 L I & O for Last 24 hours: Intake & Output 04/16/19 04/17/19 04/18/19 04/19/19 11:59 11:59 11:59 11:59 Intake Total 1018 / 1018 Balance 1018 / 1018 Weight 134 lb 6 oz Microbiology Reports for the Last 24 Hours: Microbiology 04/18/19 18:50 Sputum - Expectorated Sputum Gram Stain - Final - Constitutional no acute distress, chronically ill appearing - *Routine HEENT Exam Head: Present: normocephalic Eye: Present: PERRL ENT: Present: mucous membranes moist - *Routine Neck Exam Present: supple. Absent: lymphadenopathy - *Routine Respiratory Exam Present: wheezes, diminished air movement - *Routine Cardiovascular Exam Present: RRR - *Routine Abdominal Exam Present: soft, normoactive bowel sounds. Absent: tenderness - *Routine Extremities Exam Present: full ROM. Absent: cyanosis, clubbing, edema - *Routine Skin Exam Present: warm. Absent: rash - *Routine Neurological Exam Present: alert, oriented X3 - Routine Psychiatric Exam Present: normal affect Assessment and Plan (1) Pneumothorax Current visit: Yes Status: Acute Qualifiers: Pneumothorax type: unspecified pneumothorax Qualified Code(s): J93.9 - Pneumothorax, unspecified Category: Medical Code(s): J93.9 - Pneumothorax, unspecified (2) COPD exacerbation Current visit: No Status: Acute Category: Medical Code(s): J44.1 - Chronic obstructive pulmonary disease with (acute) exacerbation (3) Sleep apnea with use of continuous positive airway pressure (CPAP) Current visit: No Status: Acute Category: Medical Code(s): G47.30 - Sleep apnea, unspecified (4) Tobacco use disorder Current visit: No Status: Acute Category: Medical Code(s): F17.200 - Nicotine dependence, unspecified, uncomplicated - Assessment and plan all Dx Assessment and Plan for all problems:: rounded with dr alexandre all orders per dr alexandre surgery consult for pneuothorax
--- NOTE | 2019-04-19 10:26 | Electrocardiograph Report ---
APPROVED REPORT Exam: Resting ECG HR:68 bpm ECG Measurements Heart Rate 68 AXES MT 176 P 77 QRSd 78 QRS 81 QT 298 T4 QTc 316 <Conclusion> Normal sinus rhythm Nonspecific ST and T wave abnormality Abnormal ECG Electronically signed by : Tao Mcgowan, 04/19/2019 10:25:48
--- NOTE | 2019-04-19 11:31 | Consult Report ---
*Admission Date: 04/18/19 *Reason for consult:: Right pneumothorax *History of present illness: This is a 58-year-old female seen in consultation from the service of Dr. Briggs for evaluation regarding a right-sided pneumothorax. She states that she "feels a little better right now". Please see HPI from admission H&P forwarded below. From H&P: 58-year-old female presented to primary care office with complaints of shortness of air. Patient's O2 sat in primary care office was 79% when rechecked it was 80% with increased respiratory rate. Patient states she was having shortness of air with cough. Patient states she is unable to do much activities due to shortness of air. Patient was sent to the hospital for direct admission for COPD ex and rule out pneumonia. Review of Systems - Constitutional Denies chills - *Cardiovascular Reports chest pain, Reports shortness of breath - *Neurologic Denies abnormal movements [facility] History Medical History: Reports:: Aneurysm, Arrhythmia, Asthma, Chronic Obstructive Pulmonary Disease (COPD), Coronary Artery Disease, Heart Murmur, Hyperlipidemia, Hypertension, Myocardial Infarction Denies:: Cancer, Diabetes Mellitus Type 1, Diabetes Mellitus Type 2, MRSA *Have you ever received a pneumonia vaccine?: Yes *Have you received a flu vaccine this season?: Yes Other Medical History: Reports: Arthritis, Fibromyalgia Other Surgeries: Yes: Angiogram, Cardiac Catheterization, Cholecystectomy, Colonoscopy, Coronary Stent, Hysterectomy-Total Amputation: No Fractures: No - *Social History Educational Level: Completed High School Smoking Status: Current every day smoker Tobacco Type: cigarettes # Packs/Day (cigarettes): 1 #Yrs smoked (if former smoker): 35 Alcohol Intake: never Substance Use Type: denies use *Occupational Status:: disabled Housing: apartment Household Members: none *Travel in the last 8 weeks: None Family Hx:: Coronary Artery Disease, Heart Attack, Thyroid Disorder Meds Home Medications Medication Instructions Recorded Confirmed Type aspirin 81 mg tablet,delayed 81 mg PO DAILY 02/08/19 04/18/19 History release clopidogrel 75 mg tablet 75 mg PO DAILY #90 tab 02/09/19 04/18/19 Rx polyethylene glycol 3350 17 17 g PO DAILY PRN #119 g 02/09/19 04/18/19 Rx gram/dose oral powder oxycodone 10 mg tablet 10 mg PO QID PRN #120 tab 03/06/19 04/18/19 Rx Cholecalciferol (Vitamin D3) 1,000 unit PO DAILY 04/18/19 04/18/19 History [Vitamin D3 1,000 Unit Cap] Ergocalciferol (Vitamin D2) 50,000 unit PO WEEKLY 04/18/19 04/19/19 History [Drisdol] Fluticasone/Vilanterol [Breo 1 inh IH DAILY 04/18/19 04/18/19 History Ellipta 100-25 Mcg INH] Gabapentin 800 mg PO QID 04/18/19 04/18/19 History Loratadine [Allergy Relief] 10 mg PO DAILY 04/18/19 04/18/19 History Metoprolol Succinate 50 mg PO DAILY 04/18/19 04/19/19 History Pravastatin Sodium [Pravachol] 40 mg PO HS 04/18/19 04/18/19 History Albuterol Sulfate [Albuterol HFA 2 puffs IH Q4HP PRN 04/19/19 04/19/19 History Inhaler] Allergies Allergy/AdvReac Type Severity Reaction Status Date / Time cefdinir [CEFDINIR] Allergy Unknown I-ITCHING Verified 04/18/19 14:18 amoxicillin [From Augmentin] Allergy Verified 04/18/19 14:18 clavulanic acid Allergy Verified 04/18/19 14:18 [From Augmentin] Exam Vital signs and Labs for Last 24 Hours: Temp Pulse Resp BP Pulse Ox 98.0 F 76 18 123/66 93 L 04/19/19 08:00 04/19/19 11:19 04/19/19 08:00 04/19/19 08:00 04/19/19 08:00 Laboratory Results - last 24 hr 04/18/19 18:39: Sodium 143, Potassium 3.6, Chloride 105, Carbon Dioxide 29, Anion Gap 12.6, BUN 9, Creatinine 0.81, Estimated Creat Clear 76, Estimated GFR 73, Est GFR ( Amer) 89, Glucose 133 H, Calcium 8.5, Total Bilirubin 0.4, AST 8 L, ALT 17, Alkaline Phosphatase 92, Total Protein 6.6, Albumin 3.5, Globulin 3.1, Albumin/Globulin Ratio 1.1 04/18/19 18:39: WBC 5.9, RBC 3.90 L, Hgb 12.6, Hct 39.7, MCV 102.0 H, MCH 32.2 H , MCHC 31.6 L, RDW 13.5, Plt Count 398, MPV 8.0, Neut % (Auto) 71.5, Lymph % (Auto) 21.2, [place] % (Auto) 4.7, Eos % (Auto) 1.9, Baso % (Auto) 0.6, Neut # (Auto) 4.3, Lymph # (Auto) 1.3, [place] # (Auto) 0.3, Eos # (Auto) 0.1, Baso # (A uto) 0.0 04/18/19 18:39: Troponin I < 0.02 04/18/19 18:39: Lactate 0.6 04/18/19 21:26: Troponin I < 0.02 04/19/19 00:21: Troponin I < 0.02 04/19/19 05:50: WBC 3.1 L D, RBC 3.72 L, Hgb 12.2, Hct 36.7 L, MCV 98.7, MCH 32.9 H, MCHC 33.3, RDW 13.5, Plt Count 378, MPV 7.8, Neut % (Auto) 87.3 H, Lymph % (Auto) 11.0, [place] % (Auto) 1.3 L, Eos % (Auto) 0.3, Baso % (Auto) 0.1, Neut # (Auto) 2.7, Lymph # (Auto) 0.3 L, [place] # (Auto) 0.0 L, Eos # (Auto) 0.0, Baso # (Auto) 0.0, Total Counted 100, Neutrophils % (Manual) 91 H, Lymphocytes % (Manual) 8 L, Monocytes % (Manual) 1 L, Nucleated RBCs 2, Platelet Estimate Normal, RBC Morphology Normal 04/19/19 05:50: Sodium 143, Potassium 4.0, Chloride 105, Carbon Dioxide 28, Anion Gap 14.0, BUN 13 D, Creatinine 0.81, Estimated Creat Clear 75, Estimated GFR 73, Est GFR ( Amer) 89, Glucose 176 H D, Calcium 8.6, Total Bilirubin 0.3, AST 6 L, ALT 19, Alkaline Phosphatase 86, Total Protein 6.3 L, Albumin 3.2 L, Globulin 3.1, Albumin/Globulin Ratio 1.0 L I & O for Last 24 hours: Intake & Output 04/16/19 04/17/19 04/18/19 04/19/19 11:59 11:59 11:59 11:59 Intake Total 1018 / 1018 Balance 1018 / 1018 Weight 134 lb 6 oz Microbiology Reports for the Last 24 Hours: Microbiology 04/18/19 18:50 Sputum - Expectorated Sputum Gram Stain - Final - Constitutional no acute distress - *Routine Respiratory Exam Absent: respiratory distress - *Routine Cardiovascular Exam Present: RRR Results - Labs 04/19/19 05:50 04/19/19 05:50 Laboratory Results - last 24 hr 04/18/19 18:39: Sodium 143, Potassium 3.6, Chloride 105, Carbon Dioxide 29, Anion Gap 12.6, BUN 9, Creatinine 0.81, Estimated Creat Clear 76, Estimated GFR 73, Est GFR ( Amer) 89, Glucose 133 H, Calcium 8.5, Total Bilirubin 0.4, AST 8 L, ALT 17, Alkaline Phosphatase 92, Total Protein 6.6, Albumin 3.5, Globulin 3.1, Albumin/Globulin Ratio 1.1 04/18/19 18:39: WBC 5.9, RBC 3.90 L, Hgb 12.6, Hct 39.7, MCV 102.0 H, MCH 32.2 H , MCHC 31.6 L, RDW 13.5, Plt Count 398, MPV 8.0, Neut % (Auto) 71.5, Lymph % (Auto) 21.2, [place] % (Auto) 4.7, Eos % (Auto) 1.9, Baso % (Auto) 0.6, Neut # (Auto) 4.3, Lymph # (Auto) 1.3, [place] # (Auto) 0.3, Eos # (Auto) 0.1, Baso # (Auto) 0.0 04/18/19 18:39: Troponin I < 0.02 04/18/19 18:39: Lactate 0.6 04/18/19 21:26: Troponin I < 0.02 04/19/19 00:21: Troponin I < 0.02 04/19/19 05:50: WBC 3.1 L D, RBC 3.72 L, Hgb 12.2, Hct 36.7 L, MCV 98.7, MCH 32.9 H, MCHC 33.3, RDW 13.5, Plt Count 378, MPV 7.8, Neut % (Auto) 87.3 H, Lymph % (Auto) 11.0, [place] % (Auto) 1.3 L, Eos % (Auto) 0.3, Baso % (Auto) 0.1, Neut # (Auto) 2.7, Lymph # (Auto) 0.3 L, [place] # (Auto) 0.0 L, Eos # (Auto) 0.0, Baso # (Auto) 0.0, Total Counted 100, Neutrophils % (Manual) 91 H, Lymphocytes % (Manual) 8 L, Monocytes % (Manual) 1 L, Nucleated RBCs 2, Platelet Estimate Normal, RBC Morphology Normal 04/19/19 05:50: Sodium 143, Potassium 4.0, Chloride 105, Carbon Dioxide 28, Anion Gap 14.0, BUN 13 D, Creatinine 0.81, Estimated Creat Clear 75, Estimated GFR 73, Est GFR ( Amer) 89, Glucose 176 H D, Calcium 8.6, Total Bilirubin 0.3, AST 6 L, ALT 19, Alkaline Phosphatase 86, Total Protein 6.3 L, Albumin 3.2 L, Globulin 3.1, Albumin/Globulin Ratio 1.0 L - Imaging Chest x-ray: report reviewed, image reviewed (Slight increase in lateral component of right-sided pneumothorax noted on morning chest x-ray.) Assessment and Plan (1) Pneumothorax Current visit: Yes Status: Acute Qualifiers: Pneumothorax type: unspecified pneumothorax Qualified Code(s): J93.9 - Pneumothorax, unspecified Category: Medical Code(s): J93.9 - Pneumothorax, unspecified The patient's pneumothorax is not significantly large. She states that she "feels better right now". Will "hold off" on chest tube placement for now. A repeat chest x-ray has been ordered for 12 PM. (2) COPD exacerbation Current visit: No Status: Acute Category: Medical Code(s): J44.1 - Chronic obstructive pulmonary disease with (acute) exacerbation
--- OUTSIDE RECORDS SUMMARY | 2019-04-19 14:17 | External Medical Summary | Continuity of Care Document ---
:1960 Author Organization [facility] Address [address] [place] [place] [address] Phone Care Team Providers Name Role Phone Rob Alexandre Primary Care Provider Rob Alexandre Attending Provider Antonio Sánchez Attending Provider Hugh Attending Provider Vinayak Valera Attending Provider Jose Alfredo Primary Care Provider James Attending Provider Marcus Whitmore Attending Provider Allergies, Adverse Reactions, Alerts Allergen Type Severity Reaction Last Verified Status Updated cefdinir Allergy Unknown I-ITCHING Yes Active amoxicillin Allergy Yes Active clavulanic acid Allergy Yes Acti ve Medications Medication Status Dose Units Route Sig Qty Days Start End Instruct ions Date Date Oxycodone Hcl Active 10 MG Oral Four 120 February times a 2018 4:58pm Aspirin Active 81 MG Oral Daily February 08, 2019 10:54am Clopidogrel Active 75 MG Oral Daily February Bisulfate 2018 3:03pm Polyethylene Active 17 G Oral Daily February Glycol 3350 2018 4:47pm Cholecalcifero Active 1000 UNIT Oral Daily April dminister l (Vitamin D3) with meals 2018 6:26pm Ergocalciferol Active 60598 UNIT Oral Weekly April (Vitamin D2) 2018 6:26pm Gabapentin Active 800 MG Oral Four Luis times a 2018 6:26pm Loratadine Active 10 MG Oral Daily April 18, 2019 6:26pm Metoprolol Active 50 MG Oral Daily April 6:26pm Pravastatin Active 40 MG Oral At April Sodium bedtime , nightly 2018 6:26pm Fluticasone/Vi Active 1 INH INHALATIO Daily April lanterol N 2018 6:27pm Albuterol Active 2 PUFFS INHALATIO Every 11 April Sulfate N hours , as 2019 needed 10:29am Problems Active Problems Medical Problem Onset Date Status Facet hypertrophy of lumbar region Activ e Palpitations Active Dizziness Active Pneumothorax Active Pneumothorax Active Ligamentum flavum hypertrophy Active Old myocardial infarction Active Respiratory acidosis Active Sleep apnea with use of continuous Activ e positive airway pressure (CPAP) Dyspnea Active Fibromyalgia Active Infection with methicillin-resistant Act kristen Staphylococcus aureus (MRSA) Near syncope Active Tobacco use disorder Active Bulging lumbar disc Active Lumbar radicular syndrome Active Lumbar nerve root impingement Active COPD (chronic obstructive pulmonary Acti ve disease) COPD exacerbation Active Bronchitis Active Vitamin D deficiency April, Active Procedures Procedure Date Performed Status CT angio abdomen February 22, 2019 completed NM richard perf SPECT rest & str February 26, [address] chest wo con February 14, 2019 completed XR chest 2V January 29, 2019 completed Relevant Diagnostic Tests and/or Laboratory Data Laboratory Results Test Date/Time Result Interpretation Reference Result Perfo rming Range Comment Site Blood Urea January 15 mg/dL 11-23 [facility], [address] [place] [address] 36 E Nitrogen 2018 [place] 32314 9:42am Blood Urea February 9 mg/dL 11-23 [facility], [address] [place] [address] 36 E Nitrogen 2018 [place] [address]3274 8:45am Creatinine January 0.86 0.55-1.02 [facility], [address] [place] [address] 36 E 2018 mg/dL [place] 78681 9:42am Creatinine February 1.00 0.55-1.02 [facility], [address] [place] [address] 36 E 2018 mg/dL [place] 84787 8:45am Estimated GFR January 83 ML/MIN >59 [facility], [address] [place] [address] 36 E ( 2018 [place] [address] Martiniquais) 9:42am Estimated GFR February 69 ML/MIN >59 [facility], [address] [place] [address] 36 E ( 2018 [place] [address] Martiniquais) 8:45am Estimat January 68 ml/min >59 [facility], [address] [place] [address] 36 E Glomerular 2018 [place] [address] Filtration Rate 9:42am Estimat February 57 ml/min >59 [facility], [address] [place] [address] 36 [address] Glomerular 2018 [place] [address] Filtration Rate 8:45am Hemoglobin A1c January 5.1 % 0.0-7.0 < 6% [facility], [address] [place] [address] 36 E 2018 [place] [address] 9:42am Level< 7% Controlled Diabetic Level> 8% Poorly Controlled Diabetic Level Urine Barbituates October Negative [facility], [address] [place] [address] 36 E Screen 2018 ng/[place] [address] 11:28am Urine October Negative [facility], [address] [place] [address] 36 E Phencyclidine 2018 ng/[place] [address] Screen 11:28am Urine October Negative [facility], [address] [place] [address] 36 E Amphetamines 2018 ng/[place] [address] Screen 11:28am Urine Methadone February Negative [facility], [address] [place] [address] 36 E Screen 2018 ng/[place] [address] 11:28am Urine October Negative [facility], [address] [place] [address] 36 E Benzodiazepines 2018 ng/[place] [address] Screen 11:28am Urine Cocaine October Negative [facility], [address] [place] [address] 36 E Screen 2018 ng/[place] [address] 11:28am Urine Marijuana October Positive This is an Wade [facility], [address] [place] [address] 36 E (THC) Screen 2018 ng/[place] [address] 11:28am result. This result is for medical purposes and/or treatment only. Urine Opiates February Negative Gmwfok=765 Opiate test Lab jimmie Screen 2018 includes Acct# 11:28am Codeine, [id number] Morphine, Hydromorphon e, Hydrocodone. Urine February Positive Test [facility] Oxycodone/Oxymorp 2018 includes A cct# damien 11:28am Oxycodone [id number] and Oxymorphone Urine Oxycodone February Positive [facility] Screen 2018 Acct# 11:28am [id number] Urine Oxycodone February 1903 Alzytt=892 Lab jimmie Confirm (GC/MS) 2018 ng/mL Acc t# 11:28am [id number] Urine Oxymorphone February Positive [facility] 2018 Acct# 11:28am [id number] Urine Oxymorphone February 509 ng/mL Vtsyfq=260 Performed L [facility] Confirm (GC/MS) 2018 at: UI - Acc t# 11:28am [facility] OTS [id number] [place], [place] [id number] Director: Yaquelin Caceres PhD, Phone: [phone] Diagnostic Imaging Reports Report Dictated Date/Time Dictated By Status Radiology Report January 29, 2019 Dg Johnson MD completed 10:09am [facility] [address] [place] [facility] [address] [place] [address] XRay R eport Sig jorge Patient: Benita Wood MR#: [id number] : 1960 Acct:[id number] Age/Sex: 58 / F ADM Date: 9 Loc: LAB Attending Dr: Elda SHAY Ordering Physician: Justen Alexandre MD Date of Service: 01/29/19 Procedure(s): XR chest 2V Accession Number(s): [id number] cc: Dg Johnson MD~ PROCEDURE: XR CHEST 2V CLINICAL HISTORY: cough Persistent cough and congestion COMPARISON: WO CT CHEST W/O CONTRAST from 09/25/2014 CXR CHEST(2 VIEWS-NOT PORTABLE) from 03/22/2017 CXR2V XR chest 2V from 06/30/2017 CXR2V XR chest 2V from 05/24/2018 FINDINGS: The cardiomediastinal silhouette and pu lmonary vascularity are within normal limits. Postsurgical changes in the left upper lobe. Lungs are otherwise clear. No acute bony abnormalities. IMPRESSION: No change with no acute finding Dictated by: Dg Johnson MD 01/29/2019 11:33 Electronically signed by Dg Johnson in OV 01/29/2019 11:33 Radiology Report February 14, 2019 Dg Johnson MD completed 1:45pm [facility] [address] [place] [facility] [address] [place] [address] [address] Scan Report Sig jorge Patient: Benita Wood MR#: [id number] : 1960 Acct:[id number] Age/Sex: 58 / F ADM Date: 9 Loc: RAD Attending Dr: Justen Alexandre MD Ordering Physician: Justen Alexandre MD Date of Service: 02/14/19 Procedure(s): CT chest wo con Accession Number(s): [id number] cc: Dg Johnson MD; Justen Alexandre MD~ PROCEDURE: CT CHEST WO CON CLINICAL INDICATION: cough Cough, lung fungus, shortness of air, c hest pain COMPARISON: [facility] CT CHEST W/O CONTRAST from 09/25/2014 TECHNIQUE: Axial images obtained with sagittal and coronal reformats. All CT scans at the facility use one or more dose reduction, viz: automated exposure cont rol, ma/kV adjustment per patient size (including targeted exams where dose is matched to indication, i.e. head), or iterative re construction technique. FINDINGS: Scattered small mediastinal lymph nodes are present. No mediastinal adenopathy. No mediastinal or hilar mas s or adenopathy. Normal heart size. There is scattered small calcifie d mediastinal and hilar lymph nodes. Pericardium is minimally thicken ed anteriorly. There is a focal area of coarse calcification invo lving the proximal descending thoracic aorta. This area of calcificat ion measures 1.9 x 1.2 by 1.6 cm and is causing approximately 50 perc ent luminal narrowing of the proximal descending thoracic aorta. There are changes of COPD with scattere d areas of scarring most prominent in the upper lobes with some calcification in the areas of scarring. Postsurgical change left uppe r lobe this is not significantly changed. Ther e is mild diffuse bronchial thickening. No cavitating nodules are e vident. No lobar consolidation or collapse. There is a small left adre nal nodule at 1.4 cm consistent with an adenoma. There is an aortic stent present just inferior to the level of the renal katya enrique. No acute bony anomaly. IMPRESSION: 1. COPD with fibrotic changes overall n ot significantly changed. 2. Increasing calcific plaque in the pr oximal descending thoracic aorta causing approximately 50 percent luminal stenosis. Suggest CT angiogram of the aorta for further eval uation. 3. No cavitating lesions. No areas of p neumonia apparent. Dictated by: Dg Johnson MD 02/16/2019 06:32 Electronically signed by Dg Johnson in OV 02/16/2019 06:32 Radiology Report February 22, 2019 Dg Johnson MD completed 9:34am [facility] [address] [place] [facility] [address] [place] [address] [address] Scan Report Sig jorge Patient: Benita Wood MR#: [id number] : 1960 Acct:[id number] Age/Sex: 58 / F ADM Date: 9 Loc: RAD Attending Dr: John Reese MD Ordering Physician: John Reese MD Date of Service: 02/22/19 Procedure(s): CT angio abdomen Accession Number(s): [id number] cc: Dg Johnson MD~ Procedure: CT ANGIO ABDOMEN CLINICAL HISTORY: aaa Follow-up abdominal aortic aneurysm rep air COMPARISON: ABDPELW/O CT ABD PELVIS W/O CONTRAST from 07/20/2016 TECHNIQUE: IV Contrast: 100ml Optiray 350 Axial images obtained with sagittal and coronal reformats. All CT scans at the facility use one or more d ose reduction, viz: automated exposure control, ma/kV adjustment per patient size (including targeted exams where dose is matched to indication, i.e. head), or iterative reconstruction technique. FINDINGS: There has been prior aortoiliac stent g raft placed. The stent begins just below the level of the renal arter ies and extends to just above the aortic bifurcation. There is no sheryl dence of aneurysm or endograft leak. No focal stenotic lesions are sheryl dent. No evidence of celiac or superior mesenteric artery stenosis. Th ere may be some stenosis of the ostium of the right renal artery of approximately 40-50 percent. Non angiographic prior cholecystectomy. Mild nodularity of the left adrenal gland unchanged tiny umbilical hernia containing fat IMPRESSION: Overall no significant change with no a cute finding. Status post aortic stent graft placement no evidenc e of recurrence aneurysm or endograft leak. Dictated by: Dg Johnson MD 02/22/2019 17:54 Electronically signed by Dg Johnson in OV 02/23/2019 12:53 Radiology Report February 26, 2019 Dg Johnson MD completed 10:25am [facility] [address] [place] [address] [facility] [address] [place] [address] Nuclear Medi cine Report Sig jorge Patient: Benita Wood MR#: [id number] : 1960 Acct:[id number] Age/Sex: 58 / F ADM Date: 9 Loc: RAD Attending Dr: John Reese MD Ordering Physician: Theo Valera Date of Service: 02/26/19 Procedure(s): NM richard perf SPECT rest & s tr Accession Number(s): [id number] cc: Dg Johnson MD; Justen Alexandre MD~ APPROVED REPORT -------- ------ Exam: Nuclear Stress Test Indication: SOB, Palpitations, HTN, Hig h cholesterol, Tobacco use, Family history Patient Location: Outpatient Stress Tech: Pura MACIAS Tech:Myranda Henderson, SHAUNAT, RT (R)( N) Ht: 5 ft 6 in Wt: 135 lbs Bra Size: 36D HR: 68 bpm BP: 102/55 mmHg BSA: 1.69 m2 BMI: 21.7 History: SOB, Palpitations, HTN, High cholestero l, Tobacco use, Family history Procedure: Patient received a 0.4 mg of intravenou s Lexiscan, resting heart rate 68 bpm, resting blood pressure 102/55 m mHg, with Lexiscan maximum heart rate achived was 99 bpm which is % of the maximum predicted heart rate and blood pressure was 126/5 6 mmHg. With Lexiscan, patient denied any compl aint of chest pain. Cardiac Stress and Resting SPECT Images : Cardiac Stress and Resting SPECT images were obtained using technetium 99m Myoview 30.8 mCi stress and 10.54 mCi at rest. Normal ejection fraction of 64%. No ob vious wall motion abnormality. No fixed or reversible defects Conclusion: Normal ejection fraction of 64%. No evidence of ischemia or infarction Electronically signed by : Dg Johnson MD 02/28/2019 10:01:09 Advance Directives Advance Directive Response Recorded Date/Time Living Will No April 18, 2019 6:38pm Does the patient have an No April 18, 2019 2:21pm advanced directive on file? Living Will No April 18, 2019 2:21pm Does the patient have an No January 29, 2019 9:25am advanced directive on file? Living Will No January 29, 2019 9:25am Does the patient have an No March 06, 2 019 5:19pm advanced directive on file? Living Will No March 06, 2019 5 :19pm Does the patient have an No March 07, 2 019 4:09pm advanced directive on file? Living Will No March 07, 2019 4 :09pm Chief Complaint and Reason for Visit Chief Complaint Cough LAB WORK non-productive cough with ne gative chest x-ray cough ABDOMEN - HX ANEURYSM REPAIR CAD stress super 2 month follow up OFFICE DROP OFF Flu shot test f/u Ear complaints COPD Exacerbation Reason for Visit Pneumothorax Encounters Encounter Location(s) Arrival/Admit Date Discharge/Depart Date Provider(s) Departed [facility] Physician January 29, January 29, 2019 Biju Rivas Physician/[facility]vi Group-Primary 2018 8:37am 9:36am MD [place] [facility] Visit Registered [facility] Physician January 29, Elda Hansen [facility] Clinical Group-Laboratory 2018 9:41am , JASPAL Departed [facility] Physician February 08, 2019 February 08, 2019 John Reese Physician/[facility]-Cardiology 10:32am 11:25am MD [facility] [place] Visit Registered [facility] Physician February 14, 2019 Justen Rivas Clinical Group-Radiology 1:25pm MD [place] Registered [facility] Physician February 22, 2019 John dixon Clinical Group-Radiology 8:42am MD Registered [facility] Physician February 26, 2019 John dixon Clinical Group-Radiology 7:28am MD Registered [facility] Physician February 26, 2019 [facility] , Inpatient Group-Cardiology 11:59pm JASPAL Sandoval Departed [facility] Physician March 06, 2019 March 06, 2019 Rita Rivas Physician/[facility]vi Group-Primary 3:54pm 4:58pm MD [place] [facility] Visit Registered [facility] Physician March 06, 2019 Justen Rivas Clinical Group-Lab Drop 5:27pm MD [place] Off to [facility] Departed [facility] Physician March 07, 2019 March 07, 2019 Rita Rivas Physician/[facility] Group-Primary 4:03pm 4:09pm MD [place] [facility] Visit Departed [facility] Physician March 08, 2019 March 08, 2019 Daja Valera , Physician/[facility] Group-Cardiology 1:49pm 2:30pm PA ketan [place] Visit Departed [facility] Physician April 18, April 18, 2019 Dudley Murphy Physician/Provi Group-Primary 2018 1:40pm 4:02pm , MACHINE [employer]ESSER ketan [facility] Visit Registered [facility] Physician April 18, N[place]h [place] , Inpatient Group-Surgical 2018 5:36pm MD Suite Registered [facility] Physician April 19, Justen Rivas Inpatient Group- 2018 2:04pm MD [place] Recent Diagnosis Onset Date Pneumothorax Assessments Diagnosis Onset Date Resolution Status Pneumothorax acute Functional Status Observation Response Date Recorded Functional status ambulatory April 18, 2019 2:21pm Functional status ambulatory February 08, 2019 11 :18am Functional status ambulatory January 29, 2019 9:25am Functional status ambulatory March 06, 2019 5 :19pm Functional status ambulatory March 08, 2019 2 :51pm Goals Acute Goals Nursing Diagnosis: Knowledge Deficit D isease/Condition Goal(s): Education of di sease process Instruction(s): Follow provider p riccardo/instructions (See attached discharge education) Follow/up with primary care provider as instructed in discharge packet Ambulatory Goals Patient verbalizes understanding of dise ase process/healthy behaviors.Patient to follow plan of care.Education provided. Immunizations Immunization Event Date Not Given Dose Rim Fire Priming Operator Lot Vac cine Reason Number Number Informatio n Statement (VIS) Deta il Fluad Vaccine January (65 yrs +) 2015 Fluvirin February 10, 2015 Fluvirin January 24, 2017 Fluzone Quad March 09, 6mo+ 2017 Fluzone Quad March 07, [id number] 6mo+ 2019 Pneumococcal Yumi Conjugate 2015 Vaccine, 13 valent Pneumococcal March 09, Polysacc. 2018 Vaccine, 23 valent Pneumococcal October 04, Polysacc. 2015 Vaccine, 23 valent Quadrivalent January Mental Status No Mental Status Information Available Medical Equipment Implanted Devices Device Date Implanted BRIANNA Number stent November 06, 2013 Insurance Providers Guarantor Benita Wood Address [address] [place] [address] Contact Info. Home Phone: Payer Policy Id Coverage Id Subscriber's Subscriber Id Effective E xpiration Name Date Date Self Pay Self N/A [employer] [id number] Benita Coon [id number] Health Plan Nina HORNER Plan of Treatment low o2 sat after rechecking 79% discussed with dr alexandre sent to [facility] for admit will need cxr and ct chest - will do z nieves and steroids long taper will refill meds at this time Future Tests Future scheduled test information is unavailable Pending Tests Pending diagnostic test information is unavailable Future Visits Future appointment information is unavailable Referrals to Other Providers Reason for Referral Start Provider Provider Contact Provider Address Referral Date Information Admission to [facility] April [address]2018 [facility] Future Procedures Future procedure information is unavailable Future Medications Future medication information is unavailable Patient Instructions Chronic Obstructive Pulmonary Disease Cough How to Count Respirations Respiratory Failure How to Quit Tobacco Products High Triglycerides Chronic Obstructive Pulmonary Disease Heart-Healthy Diet Fat-Restricted Diet Effectiveness of Diets for Weight Loss How to Count Respirations DI for Chest Pain Respiratory Failure How to Quit Tobacco Products Low Back Pain Fibromyalgia Chronic Obstructive Pulmonary Disease How to Count Respirations Respiratory Failure How to Quit Tobacco Products Vertigo How to Quit Tobacco Products Middle Ear Infection Chronic Obstructive Pulmonary Disease DI for Otitis Media (Middle Ear Infectio n)-Child Sleep Apnea Chronic Obstructive Pulmonary Disease Pneumothorax DI for Pneumothorax Social History Observation Status Date of Observation Not April 18, 2019 Assigned Sex Female Vital Signs Vital Reading Result Reference Range Collection Date/ Time Height 167.64 cm January 29, 2019 8:41am Weight 62.59 kg January 29, 2019 8:41am Body Temperature 98.0 [degF] 97.6-99.6 January 29, 2019 8:41am Heart Rate 58 /min 60-90 January 29, 2019 8:41am Respiratory rate 16 /min 12-24 January 29, 2019 8:41am Oxygen saturation by 92 % 95-100 January 082018 Pulse oximetry 8:41am BP Systolic 118 mm[Hg] 110-140 January 29, 2019 8:41am BP Diastolic 72 mm[Hg] 60-90 January 29, 2019 8:41am BMI (Body Mass Index) 22.2 kg/m2 January 29, 2019 8:41am Height 167.64 cm February 08 9 10:49am Weight 62.59 kg February 08 9 10:49am Heart Rate 71 /min -February 08 9 10:49am Oxygen saturation by 95 % 95-100 February Pulse oximetry 10:49am BP Systolic 105 mm[Hg] 110-140 February 08 9 10:49am BP Diastolic 56 mm[Hg] 60-90 February 08 9 10:49am BMI (Body Mass Index) 22.2 kg/m2 February 10:49am Height 167.64 cm March 06 4:37pm Weight 62.14 kg March 06 4:37pm BMI (Body Mass Index) 22.1 kg/m2 March 062018 4:37pm Height 167.64 cm March 07 4:06pm Weight 63.04 kg March 07 4:06pm Body Temperature 97.9 [degF] 97.6-99.6 March 07 019 4:06pm BMI (Body Mass Index) 22.4 kg/m2 March 072018 4:06pm Height 167.64 cm March 08 1:50pm Weight 62.59 kg March 08 1:50pm Heart Rate 72 /min -March 08 1:50pm Oxygen saturation by 92 % 95-100 February Pulse oximetry 1:50pm BP Systolic 107 mm[Hg] 110-140 March 08 1:50pm BP Diastolic 49 mm[Hg] 60-90 March 08 1:50pm BMI (Body Mass Index) 22.2 kg/m2 March 082018 1:50pm Height 167.64 cm April 18, 2 019 2:11pm Weight 63.50 kg April 18 2 019 2:11pm Body Temperature 97.4 [degF] 97.6-99.6 April 18, 2019 2:11pm Heart Rate 78 /min 60-90 April 18, 2 019 2:11pm Oxygen saturation by 80 % 95-100 April 182018 Pulse oximetry 2:11pm BP Systolic 108 mm[Hg] 110-140 April 18, 2 019 2:11pm BP Diastolic 58 mm[Hg] 60-90 April 18, 2 019 2:11pm BMI (Body Mass Index) 22.6 kg/m2 April 082018 2:11pm Height 167.64 cm April 19, 2 019 5:02am Weight 60.95 kg April 19, 2 019 5:02am Body Temperature 98.1 [degF] 97.6-99.6 April 19, 2019 12:00pm Heart Rate 81 /min 60-90 April 19, 2 019 12:00pm Respiratory rate 18 /min 12-24 April 19, 2019 12:00pm Oxygen saturation by 94 % 95-100 April 192018 Pulse oximetry 12:00pm BP Systolic 120 mm[Hg] 110-140 April 19, 2 019 12:00pm BP Diastolic 67 mm[Hg] 60-90 April 19, 2 019 12:00pm BMI (Body Mass Index) 21.7 kg/m2 April 082018 5:02am Inhaled oxygen 28 % April 18, 2 019 concentration 7:12pm
--- NOTE | 2019-04-20 06:36 | Progress Note ---
Subjective Narrative: resting Exam Vital signs and Labs for Last 24 Hours: Temp Pulse Resp BP Pulse Ox 98.9 F 80 18 115/56 L 92 L 04/20/19 03:54 04/20/19 04:00 04/20/19 03:54 04/20/19 03:54 04/20/19 03:54 Laboratory Results - last 24 hr 04/19/19 05:50: Total Counted 100, Neutrophils % (Manual) 91 H, Lymphocytes % (Manual) 8 L, Monocytes % (Manual) 1 L, Nucleated RBCs 2, Platelet Estimate Normal, RBC Morphology Normal I & O for Last 24 hours: Intake & Output 04/17/19 04/18/19 04/19/19 04/20/19 11:59 11:59 11:59 11:59 Intake Total 1018 / 1018 2698 / 2698 Output Total 300 / 300 Balance 1018 / 1018 2398 / 2398 Weight 134 lb 6 oz 134 lb 6 oz - Constitutional no acute distress - *Routine Respiratory Exam Absent: respiratory distress Progress Note: A&P (1) Pneumothorax Status: Acute Assessment and plan: f/u AM CXR Current Visit: Yes (2) COPD exacerbation Status: Acute Current Visit: No
--- NOTE | 2019-04-20 12:05 | Discharge Summary ---
General - General Admission date:: 04/18/19 Discharge date: 04/20/19 HPI HPI: 58-year-old female presented to primary care office with complaints of shortness of air. Patient's O2 sat in primary care office was 79% when rechecked it was 80% with increased respiratory rate. Patient states she was having shortness of air with cough. Patient states she is unable to do much activities due to shortness of air. Patient was sent to the hospital for direct admission for COPD ex and rule out pneumonia. Objective Vital signs: Temp Pulse Resp BP Pulse Ox 98.4 F 110 H 16 121/58 L 95 04/20/19 07:41 04/20/19 08:00 04/20/19 07:41 04/20/19 07:41 04/20/19 09:00 Results Labs on day of discharge: Preliminary micro results at discharge 04/18/19 18:50 Sputum Culture - Preliminary Sputum - Expectorated Sputum DS: Diagnosis - Discharge Diagnosis (1) Pneumothorax Status: Acute (2) COPD exacerbation Status: Acute Discharge Plan - Patient Discharge Instructions ACTIVITY: Continue current activity DIET: continue same diet Patient Instructions: Sleep Apnea, Chronic Obstructive Pulmonary Disease, Pneumothorax, DI for Pneumothorax - Follow up Plan Follow up with: Nilesh Whitmore MD [Staff Physician] - 1 week Justen Briggs MD [Primary Care Provider] - Disposition: Home, Self-Long Term Medications: Home Medications Medication Instructions Recorded Confirmed Type aspirin 81 mg tablet,delayed 81 mg PO DAILY 02/08/19 04/18/19 History release clopidogrel 75 mg tablet 75 mg PO DAILY #90 tab 02/09/19 04/18/19 Rx polyethylene glycol 3350 17 17 g PO DAILY PRN #119 g 02/09/19 04/18/19 Rx gram/dose oral powder oxycodone 10 mg tablet 10 mg PO QID PRN #120 tab 03/06/19 04/18/19 Rx Cholecalciferol (Vitamin D3) 1,000 unit PO DAILY 04/18/19 04/18/19 History [Vitamin D3 1,000 Unit Cap] Ergocalciferol (Vitamin D2) 50,000 unit PO WEEKLY 04/18/19 04/19/19 History [Drisdol] Fluticasone/Vilanterol [Breo 1 inh IH DAILY 04/18/19 04/18/19 History Ellipta 100-25 Mcg INH] Gabapentin 800 mg PO QID 04/18/19 04/18/19 History Loratadine [Allergy Relief] 10 mg PO DAILY 04/18/19 04/18/19 History Metoprolol Succinate 50 mg PO DAILY 04/18/19 04/19/19 History Pravastatin Sodium [Pravachol] 40 mg PO HS 04/18/19 04/18/19 History Albuterol Sulfate [Albuterol HFA 2 puffs IH Q4HP PRN 04/19/19 04/19/19 History Inhaler] predniSONE [Prednisone 20mg 20 mg PO BID #10 tab 04/20/19 Rx Tab] Prescriptions/Medication Reconciliation: New predniSONE [Prednisone 20mg Tab] 20 mg PO BID #10 tab Continued aspirin 81 mg tablet,delayed release 81 mg PO DAILY clopidogrel 75 mg tablet 75 mg PO DAILY #90 tab polyethylene glycol 3350 17 gram/dose oral powder 17 g PO DAILY PRN #119 g PRN Reason: constipation oxycodone 10 mg tablet 10 mg PO QID PRN #120 tab PRN Reason: pain Loratadine [Allergy Relief] 10 mg PO DAILY Metoprolol Succinate 50 mg PO DAILY Gabapentin 800 mg PO QID Pravastatin Sodium [Pravachol] 40 mg PO HS Cholecalciferol (Vitamin D3) [Vitamin D3 1,000 Unit Cap] 1,000 unit PO DAILY Fluticasone/Vilanterol [Breo Ellipta 100-25 Mcg INH] 1 inh IH DAILY Albuterol Sulfate [Albuterol HFA Inhaler] 2 puffs IH Q4HP PRN PRN Reason: Shortness Of Breath Or Wheezing Ergocalciferol (Vitamin D2) [Drisdol] 50,000 unit PO WEEKLY - Problem Reconciliation Problems Reviewed?: Yes
== END 2019-04-20 12:55 | disposition home or self-care (01) | DRG 200 ==
LOC: 2ND 17:36
PROVIDERS: ADMIT Emergency Medicine; ATTEND Emergency Medicine
CPT/HCPCS: 36415; 71010; 71020; 71045; 71046; 71250; 80053; 83605; 84484; 85007; 85025; 87070; 87205; 93005; 94640; 94761; J1956; J2405

== ENCOUNTER → 2019-04-27 17:12 | Outpatient (CLI) | payer MEDICAID, SELFPAY ==
[2019-04-27 18:59] LABS: Amphetamine/Metha Screen,Urine Negative ng/mL (<1000); Barbiturates Screen,Urine Negative ng/mL (<200); Benzodiazepines Screen,Urine Negative ng/mL (<200); Cannabinoid Screen,Urine Positive ng/mL (<50); Cocaine Screen,Urine Negative ng/mL (<300); Methadone Screen,Urine Negative ng/mL (<300); Opiate Screen,Urine Positive ng/mL (<300); Phencyclidine Screen,Urine Negative ng/mL (<25)
== END ==
PROVIDERS: Visit Provider Emergency Medicine
DX: Z79.899 Other long term (current) drug therapy (principal)
CPT/HCPCS: 80305

== ENCOUNTER 2020-01-06 14:58 | Emergency (ER) | payer MEDICAID, SELFPAY ==
[2020-01-06 15:45] VITALS: BP 136/78; PULSE 88; RESP 22; O2SAT 99; BMI 20.9
--- NOTE | 2020-01-06 15:45 | XR_ITS ---
PROCEDURE: XR CHEST 2V CLINICAL HISTORY: COUGH Smoker, COPD, cough COMPARISON: CR XR CHEST 2V from 04/19/2019 CR XR CHEST PORTABLE from 04/19/2019 CR XR CHEST PORTABLE from 04/20/[address] CHEST WO CON from 04/20/2019 FINDINGS: The cardiomediastinal silhouette and pulmonary vascularity are within normal limits. COPD. Chronic changes with postsurgical change in the left upper lobe. There is a nodular opacity in the right upper lobe medially at 19 mm and 1 in the left suprahilar region and 25 mm.. This latter nodular opacity could be due to scarring. No lobar consolidation or collapse. There is consolidation in the right perihilar region and may be due to pneumonia and/or volume loss. No acute bony abnormalities. IMPRESSION: COPD with right upper lobe and left suprahilar nodular opacities which may be better evaluated with CT. Postsurgical change. Increased density right perihilar region which may be due to volume loss and/or consolidation/pneumonia. Suggest following till clear. Dictated by: Dg Johnson MD 01/06/2020 19:04 Dg Johnson MD in [place] 01/06/2020 19:04
[2020-01-06 15:57] VITALS: BP 116/68; PULSE 81; RESP 26; TEMP 36.6; O2SAT 99; BMI 19.7
--- NOTE | 2020-01-06 16:17 | HMH.EDUTC ---
[facility] [place] Disposition Clinical Impression: COPD exacerbation Disposition: Home, Self-Care Condition on Discharge: Good Instructions: DI for Chronic Obstructive Pulmonary Disease Additional Instructions: Drink plenty of fluids. Take tylenol or ibuprofen for pain or fever. Take the medications as directed. Follow up with your regular doctor. GO TO THE ER FOR ANY WORSENING SYMPTOMS Prescriptions: levoFLOXacin [Levaquin 500mg tab] 500 mg PO DAILY #7 tab Transmission Status: Received by [facility] methylPREDNISolone [Medrol] 4 mg PO DIRECTED 6 Days #21 tab.ds.pk Transmission Status: Received by [facility] Benzonatate [Tessalon Perle 100mg Cap] 100 mg PO TIDP PRN #30 cap PRN Reason: Cough Transmission Status: Received by [facility] Referrals: Justen Briggs MD [Primary Care Provider] - Time of Disposition: 16:47 Medical Decision Making - Medical Records Medical records reviewed: No: I reviewed the patient's medical records. - Roberto Inquiry Pt receiving controlled substance: No Vital Signs: 01/06/20 15:45 01/06/20 15:57 01/06/20 16:51 Temperature 97.8 F 97.8 F Temperature Source Oral Pulse Rate 81 Pulse Rate [Radial] 88 81 Respiratory Rate 22 26 H 26 H Blood Pressure 116/68 Blood Pressure [Right Arm] 136/78 116/68 Blood Pressure Mean [Right Arm] 97 84 Blood Pressure Source [Right Arm] Automatic Cuff Automatic Cuff Blood Pressure Position [Right Arm] Sitting Sitting 02 Sat by Pulse Oximetry 99 99 Oxygen Delivery Method Nasal Cannula Nasal Cannula Nasal Cannula Oxygen Flow Rate (LPM) 1.5 1.5 1.5 Orders (Tests/Meds): ED MEDICATIONS Discontinued Medications Generic Name Dose Route Start Last Admin Trade Name Freq PRN Reason Stop Dose Admin Levofloxacin 500 mg 01/06/20 16:29 01/06/20 16:36 Levaquin 500mg Tab PO 01/06/20 16:30 500 mg ONCE ONE Administration Protocol Methylprednisolone Sodium Succinate 125 mg 01/06/20 16:28 01/06/20 16:38 Solu-Medrol 125mg/2ml Vial IM 01/06/20 16:29 125 mg ONCE ONE Administration [facility] [place] HPI - General Stated complaint: soa Time Seen by Provider: 01/06/20 16:00 Mode of Arrival: Ambulatory Source of Information: Patient Limitations: No Limitations Description of Symptoms (Recalled from Triage Doc. by RN): PATIENT C/O PRODUCTIVE COUGH AND INCREASING SHORTNESS OF BREATH X 4 DAYS. DENIES FEVER HEENT Symptoms (Recalled from RN notes): No Resp Symptoms (Recalled from RN notes): Yes Skin Symptoms (Recalled from RN notes): No MS Symptoms (Recalled from RN notes): No Functional Status (Recalled from RN notes): WNL - History of Present Illness Provider Complaint: She c/o 1 week of worsening cough and congestion. She has a history of copd. - Related Data Home Medications Medication Instructions Recorded Confirmed aspirin 81 mg tablet,delayed 81 mg PO DAILY 02/08/19 12/24/19 release Cholecalciferol (Vitamin D3) 1,000 unit PO DAILY 04/18/19 12/24/19 [Vitamin D3 1,000 Unit Cap] Ergocalciferol (Vitamin D2) 50,000 unit PO WEEKLY 04/18/19 12/24/19 [Drisdol] Metoprolol Succinate 50 mg PO DAILY 04/18/19 12/24/19 Previous Rx's Medication Instructions Recorded polyethylene glycol 3350 17 17 g PO DAILY PRN #119 g 02/09/19 gram/dose oral powder cetirizine 10 mg tablet 10 mg PO QDAY 90 Days #90 tab 04/23/19 ipratropium 0.5 mg-albuterol 3 mg 3 ml INHALATION TID #180 ml 05/16/19 (2.5 mg base)/3 mL nebulization soln ondansetron HCl 4 mg tablet 4 mg PO Q8H PRN #30 tab 06/25/19 podofilox 0.5 % topical solution 1 applic TOPICAL BID 3 Days #3.5 ml 07/17/19 fluticasone fur. 100 mcg-umeclid 1 inh INHALATION DAILY #60 each 09/10/19 62.5 mcg-vilant 25 mcg inhalat.powder albuterol sulfate 90 mcg/actuation See Rx Instructions .ROUTE 10/29/19 aerosol inhaler .COMPLEX #18 g clopidogrel 75 mg tablet See Rx Instructions .ROUTE 10/29/19 .COMPL
[2020-01-06 16:51] VITALS: BP 116/68; PULSE 81; RESP 26; TEMP 36.6; O2SAT 99
== END 2020-01-06 16:52 | disposition home or self-care (01) ==
PROVIDERS: Emergency Provider Nurse Practitioner Family; PCP Emergency Medicine
DX: J44.1 Chronic obstructive pulmonary disease with (acute) exacerbation (principal); I25.10 Atherosclerotic heart disease of native coronary artery without angina pectoris; E78.5 Hyperlipidemia, unspecified; I10 Essential (primary) hypertension; I25.2 Old myocardial infarction; M79.7 Fibromyalgia; F17.210 Nicotine dependence, cigarettes, uncomplicated; Z90.49 Acquired absence of other specified parts of digestive tract; Z90.710 Acquired absence of both cervix and uterus
CPT/HCPCS: 71046; 96372; 99202

== ENCOUNTER 2020-02-05 18:28 | Emergency (ER) | payer MEDICAID, SELFPAY ==
[2020-02-05 19:15] VITALS: BP 111/71; PULSE 78; RESP 21; TEMP 36.9; O2SAT 92; BMI 19.7
--- NOTE | 2020-02-05 19:41 | HMH.EDUTC ---
[facility] [place] Disposition Clinical Impression: Bronchitis Sinusitis Qualifiers: Sinusitis location: unspecified location Chronicity: unspecified Qualified Code(s): J32.9 - Chronic sinusitis, unspecified Disposition: Home, Self-Care Condition on Discharge: Good Instructions: Sinusitis, Sinus Headache, Acute Bronchitis, DI for Sinusitis Additional Instructions: ? Start antibiotic today. Be sure to complete entire prescription even if feeling better ? Monitor temp. Tylenol every 4 hours as needed and / or ibuprofen every 6 hours as needed ( As long as your primary care physician has told you that it ok to take both. For fever/aches/pains ER if no less than 101 despite Tylenol or Motrin ? Humidifier/vaporizer or hot steamy shower ? Inhaler every 4-6 hours as needed like we discussed. If unsure how to use it, ask pharmacist to demonstrate how. Should help open airways and improve cough, wheezing, and shortness of breath ? *Start steroid today. Helps with inflammation therefore, cough and wheezing. Follow directions on the package. Reviewed side effects. Patient reports taking them before. Follow up IMMEDIATELY for new or worsening of symptoms OR no noticeable improvement over the next 48-72 hours. 911 immediately for any life threatening symptoms such as chest pain or difficulty breathing Prescriptions: predniSONE [Deltasone 10mg tablet] 10 mg PO BID #10 tab Transmission Status: Received by [facility] Doxycycline Monohydrate [Doxycycline [place] 100mg Tab] 100 mg PO BID 10 Days #20 tab Transmission Status: Received by [facility] Referrals: Justen Briggs MD [Primary Care Provider] - As needed Time of Disposition: 19:52 Medical Decision Making - Roberto Inquiry Pt receiving controlled substance: No Roberto was queried for this patient: No Vital Signs: 02/05/20 19:15 02/05/20 20:01 Temperature 98.4 F 98.4 F Temperature Source Oral Pulse Rate 78 Pulse Rate [Right Brachial] 78 Respiratory Rate 21 21 Blood Pressure 111/71 Blood Pressure [Right Arm] 111/71 Blood Pressure Mean [Right Arm] 84 Blood Pressure Source [Right Arm] Automatic Cuff Blood Pressure Position [Right Arm] Sitting 02 Sat by Pulse Oximetry 92 L Oxygen Delivery Method Room Air Orders (Tests/Meds): ED MEDICATIONS Discontinued Medications Generic Name Dose Route Start Last Admin Trade Name Freq PRN Reason Stop Dose Admin Methylprednisolone Sodium Succinate 125 mg 02/05/20 19:50 02/05/20 20:00 Solu-Medrol 125mg/2ml Vial IM 02/05/20 19:51 125 mg ONCE ONE Administration Medical Decision Narrative: Patient states that she has taken Doxy and prednisone and SoluMedrol before without reaction or complications [facility] [place] HPI - General Stated complaint: cough,congestion Time Seen by Provider: 02/05/20 19:41 Mode of Arrival: Ambulatory Source of Information: Patient Limitations: No Limitations Description of Symptoms (Recalled from Triage Doc. by RN): PATIENT C/O COUGH AND CHEST CONGESTION X 4 DAYS HEENT Symptoms (Recalled from RN notes): No Resp Symptoms (Recalled from RN notes): Yes Skin Symptoms (Recalled from RN notes): No MS Symptoms (Recalled from RN notes): No Functional Status (Recalled from RN notes): WNL - History of Present Illness Provider Complaint: Patient state that she has been having cough, sinus pain and pressure for several days States that her grandkids have been having similar symptoms and she started feeling bad again after finishing antibiotic given by her PCP a couple months ago States that she has been having alot of drainage from her nose and feels like it is trying to move into her chest so she came in to get checked - Related Data Home Medications Medication Instructions Recorded Confirmed aspirin 81 mg tablet,delayed 81 mg PO DAILY 02/08/19 12/24/19 release Cholecalciferol (Vitamin D3) 1,000 unit PO DAILY 04/18/19 12/24/19 [Vitamin D3 1,000 Unit Cap] Er
[2020-02-05 20:01] VITALS: BP 111/71; PULSE 78; RESP 21; TEMP 36.9; O2SAT 92
== END 2020-02-05 20:08 | disposition home or self-care (01) ==
PROVIDERS: Emergency Provider Nurse Practitioner; PCP Emergency Medicine
DX: J20.9 Acute bronchitis, unspecified (principal); J32.9 Chronic sinusitis, unspecified; J45.909 Unspecified asthma, uncomplicated; I25.10 Atherosclerotic heart disease of native coronary artery without angina pectoris; E78.5 Hyperlipidemia, unspecified; I10 Essential (primary) hypertension; I25.2 Old myocardial infarction; M79.7 Fibromyalgia; Z90.49 Acquired absence of other specified parts of digestive tract; Z90.710 Acquired absence of both cervix and uterus
CPT/HCPCS: 96372; 99201

== ENCOUNTER 2020-02-18 17:01 | Emergency (ER) | payer MEDICAID, SELFPAY ==
[2020-02-18 17:03] VITALS: BP 138/66; PULSE 90; RESP 26; TEMP 37.1; O2SAT 85; BMI 20.3
--- NOTE | 2020-02-18 17:08 | HMH.EDGENADL ---
ED Disposition Clinical Impression: COPD with exacerbation, Bronchitis Disposition: Home, Self-Care Condition on Discharge: Fair Instructions: DI for Chronic Obstructive Pulmonary Disease Additional Instructions: Please take antibiotic as prescribed. Take steroid as prescribed always with food. Use your inhaler generously over the next several days. Wear oxygen throughout the day and night between 1 L and 2 L. Immediately return if increased work of breathing, increased wheezing, change in activity level, shortness of breath, fever/chills, worsening cough, or other new concerning symptoms. Prescriptions: Azithromycin 250 mg PO DAILY 4 Days #4 tab Transmission Status: Pending to [facility] predniSONE [Prednisone 20mg Tab] 40 mg PO DAILY 4 Days #8 tab Transmission Status: Pending to [facility] Referrals: Justen Briggs MD [Primary Care Provider] - - Critical Care Critical Care Time: No Attestation: On , the high probability of a clinically significant, sudden or life threatening deterioration of the following system(s) required my full and direct attention, intervention and personal management. The time I documented below is in addition to time spent performing reported procedures but includes the following listed in this critical care notation. Medical Decision Making - Medical Records Medical records reviewed: Yes: I reviewed the patient's medical records. - Roberto Inquiry Pt receiving controlled substance: No Vital Signs: 02/18/20 17:03 02/18/20 17:25 02/18/20 18:05 Temperature 98.8 F Temperature Source Oral Pulse Rate 87 Pulse Rate [Right] 90 90 Respiratory Rate 26 H 18 Blood Pressure [Right Arm] 138/66 129/67 Blood Pressure Mean [Right Arm] 90 87 Blood Pressure Source [Right Arm] Automatic Cuff Blood Pressure Position [Right Arm] Sitting 02 Sat by Pulse Oximetry 85 L 97 99 Oxygen Delivery Method Room Air Nasal Cannula Oxygen Flow Rate (LPM) 4 - Lab Data Lab Results 02/18/20 17:15: WBC 8.1, RBC 4.20, Hgb 13.6, Hct 43.2, MCV 103.1 H, MCH 32.5 H, MCHC 31.6 L, RDW 13.5, Plt Count 298, MPV 7.0 L, Neut % (Auto) 79.2, Lymph % (Auto) 12.9, Kern % (Auto) 6.0, Eos % (Auto) 1.5, Baso % (Auto) 0.3, Neut # (Auto) 6.4, Lymph # (Auto) 1.1, Kern # (Auto) 0.5, Eos # (Auto) 0.1, Baso # (Auto) 0.0 02/18/20 17:15: Sodium 140, Potassium 3.7, Chloride 101, Carbon Dioxide 33 H, Anion Gap 9.7, BUN 9, Creatinine 0.60, Estimated Creat Clear 93, Estimated GFR 103, Est GFR ( Amer) 125, Glucose 128 H, Calcium 9.6, Total Bilirubin 0.7, AST 23, ALT 18, Alkaline Phosphatase 71, Troponin I < 0.01, Total Protein 6.9, Albumin 4.2, Globulin 2.7, Albumin/Globulin Ratio 1.6 02/18/20 17:15: Lactate 1.2 02/18/20 17:15: SARS-CoV-2 IgG Ab (Rapid) Negative, SARS-CoV-2 IgM Ab (Rapid) Negative Result diagrams: 02/18/20 17:15 02/18/20 17:15 Orders (Tests/Meds): ED MEDICATIONS Discontinued Medications Generic Name Dose Route Start Last Admin Trade Name Freq PRN Reason Stop Dose Admin Albuterol/Ipratropium 3 ml 02/18/20 17:47 02/18/20 17:25 Albuterol/Ipratropium 3 Ml Neb IH 02/18/20 17:48 3 ml ONCE ONE Administration Azithromycin 500 mg 02/18/20 17:37 02/18/20 18:04 Azithromycin 250mg Tablet PO 02/18/20 17:38 500 mg ONCE ONE Administration Protocol Methylprednisolone Sodium Succinate 125 mg 02/18/20 17:23 02/18/20 18:04 Methylprednisolone Sod Succ 125mg Vial IV 02/18/20 17:24 125 mg ONCE ONE Administration ORDERS Category Date Time Status XR chest 2V Stat Exams 02/18/20 17:23 Taken Troponin I Q3H Lab 02/18/20 20:30 Ordered Troponin I Q3H Lab 02/18/20 23:30 Ordered Blood Culture Stat Micro 02/18/20 17:15 Received ABG [Arterial Blood Gas] Stat RT 02/18/20 17:23 Ordered Medical Decision Narrative: Patient is a 59-year-old female with past history of COPD presented with increased oxygen requirement and di
--- NOTE | 2020-02-18 17:23 | XR_ITS ---
PROCEDURE: XR CHEST 2V CLINICAL HISTORY: soa Shortness of air, COPD, smoker COMPARISON: CR XR CHEST 2V from 04/19/2019 CR XR CHEST PORTABLE from 04/20/[address] CHEST WO CON from 04/20/2019 CR XR CHEST 2V from 01/06/2020 FINDINGS: The cardiomediastinal silhouette and pulmonary vascularity are within normal limits. COPD. Scattered areas of scarring. Suture line is present in the left upper lobe at a nodular region. Nodular opacity noted in the right upper lobe at 12 mm.. Right perihilar/anterior clear space consolidation appears slightly improved. IMPRESSION: COPD with right upper and left upper lobe nodular densities with postsurgical changes in the left upper lobe. Opacification of the anterior clear space/right perihilar region slightly improved Dictated by: Dg Johnson MD 02/19/2020 06:01 Dg Johnson MD in [place] 02/19/2020 06:01
[2020-02-18 17:25] VITALS: PULSE 87; PULSE 90; O2SAT 97
--- NOTE | 2020-02-18 17:25 | PC.NURSE ---
Attempted ABG on patient. Left Radial artery cleaned and prepped, (+) Allens test completed. Upon the needle entering the Patient's skin, Patient yelled and states it hurts and take the needle out, I did. Pressure held, pressure bandage applied, no bleeding. RN aware.
[2020-02-18 17:34] LABS: Basophils % 0.3 % (0.1-2.0); Eosinophils # 0.1 K/mm3 (0.0-0.4); Eosinophils % 1.5 % (0.1-12.0); Hematocrit 43.2 % (37.0-47.0); Hemoglobin 13.6 g/dL (12.2-16.2); Lymphocytes # 1.1 K/mm3 (0.7-4.5); Lymphocytes % 12.9 % (10-50); Mean Corpuscular HGB Conc 31.6 g/dL (31.8-35.4); Mean Corpuscular Hemoglobin 32.5 pg (27.0-31.2); Mean Corpuscular Volume 103.1 fl (81-99); Monocytes # 0.5 K/mm3 (0.1-1.0); Neutrophils # 6.4 K/mm3 (1.8-7.8); Neutrophils % 79.2 % (37.0-80.0); Platelet Count 298 K/mm3 (142-424); Red Cell Distribution Width 13.5 % (11.5-17.5); White Blood Count 8.1 K/mm3 (4.8-10.8)
[2020-02-18 17:38] LABS: Chloride 101 mmol/L (98-107); Potassium 3.7 mmoL/L (3.5-5.1); Sodium 140 mmol/L (136-145)
[2020-02-18 17:41] LABS: Alanine Aminotransferase 18 U/L (12-78); Albumin Level 4.2 g/dl (3.5-5.0); Albumin/Globulin Ratio 1.6 (1.1-1.8); Alkaline Phosphatase 71 U/L (38-126); Anion Gap 9.7 mEq/L (5-15); Aspartate Amino Transferase 23 U/L (14-36); Bilirubin,Total 0.7 mg/dl (0.2-1.3); Blood Urea Nitrogen 9 mg/dl (7-17); Carbon Dioxide 33 mmol/L (22.0-30.0); Creatinine Clearance Estimated 93 mL/min (50-200); Estimated Glomerular Filt Rate 103 ml/min (>60); GFR (African American) 125 ML/MIN (>60); Globulin 2.7 g/dL (1.3-3.2); Lactic Acid 1.2 mmol/L (0.7-2.1); Total Protein,Serum 6.9 g/dl (6.3-8.2)
[2020-02-18 17:42] LABS: Calcium 9.6 mg/dl (8.4-10.2); Glucose 128 mg/dl (74-100)
[2020-02-18 18:05] VITALS: BP 129/67; PULSE 90; RESP 18; O2SAT 99
[2020-02-18 18:09] LABS: Coronavirus 19 IgG Antibody Negative (Negative); Coronavirus 19 IgM Antibody Negative (Negative)
[2020-02-18 18:47] LABS: Troponin I < 0.01 ng/ml (0.00-0.034)
[2020-02-18 19:29] VITALS: BP 111/68; PULSE 88; RESP 20; TEMP 36.8; O2SAT 93
== END 2020-02-18 19:30 | disposition home or self-care (01) ==
PROVIDERS: Emergency Provider Emergency Medicine; PCP Emergency Medicine
DX: J44.1 Chronic obstructive pulmonary disease with (acute) exacerbation (principal); J44.0 Chronic obstructive pulmonary disease with (acute) lower respiratory infection; E78.5 Hyperlipidemia, unspecified; I10 Essential (primary) hypertension; I25.2 Old myocardial infarction; F17.210 Nicotine dependence, cigarettes, uncomplicated; Z79.899 Other long term (current) drug therapy
CPT/HCPCS: 71046; 80053; 83605; 84484; 85025; 86328; 87040; 96374; 99283

== ENCOUNTER 2020-06-22 00:14 | Emergency (ER) | payer MEDICAID, SELFPAY ==
[2020-06-22 00:22] VITALS: BP 107/41; PULSE 93; RESP 17; TEMP 36.7; O2SAT 94; BMI 19.3
--- NOTE | 2020-06-22 00:31 | HMH.EDGENADL ---
ED Disposition Clinical Impression: Bruise Disposition: Home, Self-Care Condition on Discharge: Good Referrals: Justen Briggs MD [Primary Care Provider] - - Critical Care Critical Care Time: No Attestation: On , the high probability of a clinically significant, sudden or life threatening deterioration of the following system(s) required my full and direct attention, intervention and personal management. The time I documented below is in addition to time spent performing reported procedures but includes the following listed in this critical care notation. Medical Decision Making - Medical Records Medical records reviewed: Yes: I reviewed the patient's medical records. - Roberto Inquiry Pt receiving controlled substance: No Vital Signs: 06/22/20 00:22 Temperature 98.1 F Temperature Source Oral Pulse Rate [Right Brachial] 93 H Respiratory Rate 17 Blood Pressure [Right Arm] 107/41 L Blood Pressure Mean [Right Arm] 63 Blood Pressure Source [Right Arm] Automatic Cuff Blood Pressure Position [Right Arm] Sitting 02 Sat by Pulse Oximetry 94 L Oxygen Delivery Method Nasal Cannula Oxygen Flow Rate (LPM) 2 Medical Decision Narrative: 59-year-old female presents for swelling on left arm. Swelling is localized to a 2 x 1 cm area, appearance is similar to a bruise. Patient denies any history of trauma. Bedside ultrasound performed, no thrombus was identified on compression, there is some fluid swelling close to the vein, patient possibly had a traumatic or traumatic events that led to venous leaking. Swelling is controlled, patient is neurovascularly intact distally, discussed with patient low concern for abscess versus erythema versus drug reaction. Patient is amenable to follow-up with primary care doctor and monitoring. She may continue take her antiplatelets General Adult HPI - General Chief complaint: Skin/Abscess/Foreign Body Stated complaint: Knot on left wrist Time Seen by Provider: 06/22/20 00:20 Mode of Arrival: Family Vehicle Limitations: No Limitations Description of Symptoms (Recalled from ER Triage Doc. by RN): pt presents with a bruised raised area to left inner wrist. states she was washing dishes and suddenly it hooved up and started itching. adamant that she didn't scratch it. states her nurse sister told her to hurry up and get in here before it killed her if it was a blood clot - History of Present Illness HPI narrative: 59-year-old female history of PAD status post femoral stent, lung mass status post removal, COPD on oxygen at baseline. Patient states she is worse medications and she noticed a bump on her arm, patient's blood her sister who is a nurse who told to come into there were concern for a DVT or blood clot. Patient is on Plavix and aspirin, states that she did not hit it against anything, patient does not recall any other trauma. Denies any fevers, chills, no erythema, no history of IV drug abuse. Patient has no itching or difficulty breathing. - Related Data Home Medications Medication Instructions Recorded Confirmed aspirin 81 mg tablet,delayed 81 mg PO DAILY 02/08/19 05/12/20 release Previous Rx's Medication Instructions Recorded polyethylene glycol 3350 17 17 g PO DAILY PRN #119 g 02/09/19 gram/dose oral powder cetirizine 10 mg tablet 10 mg PO QDAY 90 Days #90 tab 04/23/19 ondansetron HCl 4 mg tablet 4 mg PO Q8H PRN #30 tab 06/25/19 podofilox 0.5 % topical solution 1 applic TOPICAL BID 3 Days #3.5 ml 07/17/19 fluticasone fur. 100 mcg-umeclid 1 inh INHALATION DAILY #60 each 09/10/19 62.5 mcg-vilant 25 mcg inhalat.powder nystatin 100,000 unit/mL oral 10 ml PO TID #200 ml 12/19/19 suspension [id number]-[id number]-mppeyijel 3.5 2 drp OTIC BID 10 Days #10 ml 12/24/19 mg-10,000 unit/mL-1 % ear drops,susp Benzonatate [Tessalon Perle 100mg 100 mg PO TIDP PRN #30 cap 01/06/20 Cap] ipratropium 0.5 mg-albuterol 3 mg 3 ml INHALATION TID #180 ml
[2020-06-22 00:42] VITALS: BP 116/47; PULSE 89; RESP 18; TEMP 36.7; O2SAT 95
== END 2020-06-22 00:47 | disposition home or self-care (01) ==
PROVIDERS: Emergency Provider Emergency Medicine; PCP Emergency Medicine
DX: R23.3 Spontaneous ecchymoses (principal); I73.9 Peripheral vascular disease, unspecified; J44.9 Chronic obstructive pulmonary disease, unspecified; M79.7 Fibromyalgia; I25.2 Old myocardial infarction; I10 Essential (primary) hypertension; E78.5 Hyperlipidemia, unspecified; I25.10 Atherosclerotic heart disease of native coronary artery without angina pectoris; F17.210 Nicotine dependence, cigarettes, uncomplicated; Z79.899 Other long term (current) drug therapy
CPT/HCPCS: 99281

== ENCOUNTER → 2020-10-22 17:58 | Outpatient (CLI) | payer MEDICAID, SELFPAY ==
[2020-10-22 21:28] LABS: Barbiturates Screen,Urine Negative ng/ml (<200)
[2020-10-22 21:29] LABS: Amphetamine/Metha Screen,Urine Negative ng/ml (<1000); Benzodiazepines Screen,Urine Negative ng/ml (<200)
[2020-10-22 21:30] LABS: Cannabinoid Screen,Urine Positive ng/ml (<50); Cocaine Screen,Urine Negative ng/ml (<300)
[2020-10-22 21:31] LABS: Methadone Screen,Urine Negative ng/ml (<300)
[2020-10-22 21:32] LABS: Opiate Screen,Urine Negative ng/ml (<300); Phencyclidine Screen,Urine Negative ng/ml (<25)
== END ==
PROVIDERS: Visit Provider Emergency Medicine
DX: Z79.899 Other long term (current) drug therapy (principal)
CPT/HCPCS: 80305

== ENCOUNTER → 2020-12-19 17:23 | Outpatient (CLI) | payer MEDICAID, SELFPAY ==
[2020-12-19 19:43] LABS: Amphetamine/Metha Screen,Urine Negative ng/ml (<1000)
[2020-12-19 19:44] LABS: Barbiturates Screen,Urine Negative ng/ml (<200); Benzodiazepines Screen,Urine Negative ng/ml (<200)
[2020-12-19 19:45] LABS: Cannabinoid Screen,Urine Positive ng/ml (<50); Cocaine Screen,Urine Negative ng/ml (<300)
[2020-12-19 19:46] LABS: Methadone Screen,Urine Negative ng/ml (<300)
[2020-12-19 19:47] LABS: Opiate Screen,Urine Negative ng/ml (<300); Phencyclidine Screen,Urine Negative ng/ml (<25)
== END ==
PROVIDERS: Visit Provider Emergency Medicine
DX: Z79.899 Other long term (current) drug therapy (principal)
CPT/HCPCS: 80305

== ENCOUNTER → 2021-05-06 13:35 | Outpatient (CLI) | payer MEDICAID, SELFPAY ==
--- NOTE | 2021-05-06 13:36 | CT_ITS ---
PROCEDURE: CT CHEST WO CON CLINICAL INDICATION: pulmonary nodules COMPARISON: CT CT CHEST WO CON from 02/14/[address] CHEST WO CON from 04/20/2019 TECHNIQUE: Axial images obtained with sagittal and coronal reformats. All CT scans at the facility use one or more dose reduction, viz: automated exposure control, ma/kV adjustment per patient size (including targeted exams where dose is matched to indication, i.e. head), or iterative reconstruction technique. FINDINGS: HEART AND MEDIASTINAL STRUCTURES: There are few small mediastinal nodes some of which are calcified. These are not significantly changed. Coronary artery calcification is noted. A prominent area of calcification is present in the proximal descending thoracic aorta measuring 2.3 by 1.2 cm resulting in seventy-five luminal narrowing. The stenosis has increased since the previous exam previously approximately 60 percent stenosis. LUNGS AND PLEURAL SPACES: COPD with centrilobular emphysema and scattered areas of scarring. Fibrocalcific changes in the right upper lobe and along the left major fissure superiorly unchanged. Nodularity along the right heart border in the right middle lobe medially not significantly changed. No new areas of consolidation. No suspicious nodules apparent. BONY STRUCTURES: No acute bony abnormalities apparent. UPPER ABDOMEN: Left adrenal nodule once again noted not significantly changed at 1.6 by 1.1 cm. ADDITIONAL FINDINGS: Previously noted right-sided pneumothorax no longer apparent IMPRESSION: 1. Progressive focal area of calcification in the proximal descending thoracic aorta causing approximately 75 percent stenosis previously approximately 60 percent stenosis. 2. COPD with centrilobular emphysematous changes and scattered areas of scarring which appear stable Dictated by: Dg Johnson MD 05/07/2021 13:46 Dg Johnson MD in [place] 05/07/2021 13:46
== END ==
PROVIDERS: PCP Emergency Medicine; Visit Provider Family Medicine
DX: R91.8 Other nonspecific abnormal finding of lung field (principal)
CPT/HCPCS: 71250

== ENCOUNTER → 2021-06-01 14:36 | Outpatient (CLI) | payer MEDICAID, SELFPAY | PROVIDERS: Visit Provider Nurse Practitioner | DX: Z20.822 Contact with and (suspected) exposure to COVID-19 (principal) | CPT/HCPCS: C9803; U0003; U0005 ==

== ENCOUNTER → 2021-06-15 12:43 | Outpatient (CLI) | payer MEDICAID, SELFPAY ==
[2021-06-15 13:44] LABS: Chloride 100 mmol/L (98-107)
[2021-06-15 13:45] LABS: Potassium 3.7 mmoL/L (3.5-5.1); Sodium 138 mmol/L (136-145)
[2021-06-15 13:47] LABS: Alanine Aminotransferase 15 U/L (12-78); Alkaline Phosphatase 67 U/L (38-126); Anion Gap 7.7 mEq/L (5-15); Aspartate Amino Transferase 25 U/L (14-36); Bilirubin,Direct 0.3 mg/dl (0.0-0.4); Bilirubin,Indirect 0.2 mg/dL (0.0-0.9); Bilirubin,Total 0.5 mg/dl (0.2-1.3); Bilirubin,Unconjugated 0.2 mg/dL (0.0-1.1); Blood Urea Nitrogen 12 mg/dl (7-17); Carbon Dioxide 34 mmol/L (22.0-30.0); Cholesterol 138 mg/dl (140-200); Estimated Glomerular Filt Rate 103 ml/min (>60); GFR (African American) 124 ML/MIN (>60); Triglycerides 111 mg/dl (30-150); VLDL Cholesterol 22 mg/dL (0-40)
[2021-06-15 13:48] LABS: Albumin Level 4.2 g/dl (3.5-5.0); Calcium 9.3 mg/dl (8.4-10.2); Chol/HDL Ratio 3.3 (1-3.5); Glucose 94 mg/dl (74-100); HDL Cholesterol 42 mg/dl (40-60); Total Protein,Serum 6.4 g/dl (6.3-8.2)
[2021-06-15 13:57] LABS: Basophils % 0.3 % (0.1-2.0); Eosinophils # 0.2 K/mm3 (0.0-0.4); Eosinophils % 3.4 % (0.1-12.0); Hematocrit 42.7 % (37.0-47.0); Hemoglobin 13.5 g/dL (12.2-16.2); Lymphocytes # 1.5 K/mm3 (0.7-4.5); Mean Corpuscular HGB Conc 31.6 g/dL (31.8-35.4); Mean Corpuscular Hemoglobin 33.3 pg (27.0-31.2); Mean Corpuscular Volume 105.3 fl (81-99); Mean Platelet Volume 7.7 fl (7.4-10.4); Monocytes # 0.3 K/mm3 (0.1-1.0); Monocytes % 5.2 % (1.7-9.3); Neutrophils # 4.1 K/mm3 (1.8-7.8); Neutrophils % 67.2 % (37.0-80.0); Platelet Count 366 K/mm3 (142-424); Red Blood Count 4.06 M/mm3 (4.20-5.40); Red Cell Distribution Width 14.4 % (11.5-17.5); White Blood Count 6.1 K/mm3 (4.8-10.8)
[2021-06-15 14:19] LABS: Thyroid Stimulating Hormone 1.48 uIU/mL (0.465-4.68)
[2021-06-15 14:30] LABS: Free T4 (Free Thyroxine) 1.12 ng/dl (0.78-2.19)
== END ==
PROVIDERS: PCP Emergency Medicine; Visit Provider Internal Medicine
DX: R06.09 Other forms of dyspnea (principal); R42 Dizziness and giddiness; R00.2 Palpitations; I25.2 Old myocardial infarction; I70.0 Atherosclerosis of aorta; G47.30 Sleep apnea, unspecified
CPT/HCPCS: 36415; 80048; 80061; 80076; 84439; 84443; 85025

== ENCOUNTER → 2021-07-02 14:32 | Outpatient (CLI) | payer MEDICAID, SELFPAY ==
--- NOTE | 2021-07-02 14:33 | CT_ITS ---
FINAL REPORT TECHNIQUE: Thin section axial CT images were obtained from the lung apices to the upper abdomen. IV contrast was administered. MIP 3-D reformats were obtained. This study was performed with techniques to keep radiation doses as low as reasonably achievable (ALARA). Individualized dose reduction techniques using automated exposure control or adjustment of mA and/or kV according to the patient's size were employed. CLINICAL HISTORY: thoracic aortic stenosis on ct. COMPARISON: May 06, 2021 FINDINGS: The heart size is normal. There is no adenopathy. There is no filling defect to suggest PE. There is no aortic dissection. The ascending aorta measures 2.7 cm. Redemonstrated is bulky calcification in the proximal descending thoracic aorta measuring 1.9 cm in transverse dimensions on image 34 series 3 resulting in approximately 75% stenosis. There is no pericardial effusion. There are moderate changes centrilobular emphysema. There is scarring in the lung apices. There are calcified linear densities in both upper lobes. There is mild patchy airspace opacity in the posterior left lower lobe that may be due to subacute infiltrate. No pleural effusion. Limited images of the upper abdomen demonstrate the gallbladder to be absent. IMPRESSION: Redemonstration of bulky intraluminal calcification in the proximal descending thoracic aorta, similar to prior. Moderate centrilobular emphysema. Reviewed, Interpreted and Dictated by Monster Rico MD Transcribed by Justin Perdue Authenticated by Monster Rico MD on 07/02/2021 04:52:11 PM [facility]
== END ==
PROVIDERS: PCP Emergency Medicine; Visit Provider Nurse Practitioner Family
DX: R06.09 Other forms of dyspnea (principal); R42 Dizziness and giddiness; R00.2 Palpitations; I71.2 Thoracic aortic aneurysm, without rupture; I70.0 Atherosclerosis of aorta; I25.2 Old myocardial infarction; R94.31 Abnormal electrocardiogram [ECG] [EKG]; G47.30 Sleep apnea, unspecified
CPT/HCPCS: 71275; Q9967

== ENCOUNTER → 2021-07-03 16:00 | Outpatient (CLI) | payer MEDICAID, SELFPAY ==
[2021-07-03 17:54] LABS: Amphetamine/Metha Screen,Urine Negative ng/ml (<1000)
[2021-07-03 17:55] LABS: Barbiturates Screen,Urine Negative ng/ml (<200)
[2021-07-03 17:56] LABS: Benzodiazepines Screen,Urine Negative ng/ml (<200)
[2021-07-03 17:57] LABS: Cannabinoid Screen,Urine Positive ng/ml (<50)
[2021-07-03 17:58] LABS: Cocaine Screen,Urine Negative ng/ml (<300); Methadone Screen,Urine Negative ng/ml (<300)
[2021-07-03 17:59] LABS: Opiate Screen,Urine Negative ng/ml (<300)
[2021-07-03 18:00] LABS: Phencyclidine Screen,Urine Negative ng/ml (<25)
== END ==
PROVIDERS: Visit Provider Emergency Medicine
DX: Z79.899 Other long term (current) drug therapy (principal)
CPT/HCPCS: 80305

== ENCOUNTER → 2021-07-07 13:33 | Outpatient (CLI) | payer MEDICAID, SELFPAY | PROVIDERS: PCP Emergency Medicine; Visit Provider Nurse Practitioner Family | DX: R06.02 Shortness of breath (principal) | CPT/HCPCS: 93306 ==

== ENCOUNTER 2021-09-09 13:20 | Inpatient (IN) | payer MEDICAID, SELFPAY ==
[2021-09-09] VITALS (13 sets, daily range): BP systolic 121–161; BP diastolic 64–90; PULSE 66–88; RESP 13–26; TEMP 37.1–37.2; O2SAT 72–100; BMI 20.9; BMI 19.0
--- NOTE | 2021-09-09 13:33 | ECG_ITS ---
APPROVED REPORT Exam: Resting ECG HR:84 bpm ECG Measurements Heart Rate 84 AXES KS 166 P 80 QRSd 85 QRS 84 QT 351 T -72 QTc 392 Conclusion SINUS RHYTHM POSSIBLE RIGHT VENTRICULAR CONDUCTION DELAY [RSR (QR) IN V1/V2] SEPTAL MYOCARDIAL INFARCTION , PROBABLY OLD [40+ ms Q WAVE IN V1/V2] ABNORMAL ECG UNCONFIRMED REPORT Electronically signed by : Tao Mcgowan MD 09/09/2021 17:55:13
--- NOTE | 2021-09-09 13:35 | XR_ITS ---
FINAL REPORT CLINICAL HISTORY: AMS, resp failure COMPARISON: 02/18/2020 FINDINGS: SINGLE-VIEW CHEST The heart size is normal. The mediastinum is normal. The lungs are hyperinflated consistent with COPD. There is no pneumothorax. There are postoperative changes in the left thorax. IMPRESSION: No acute cardiopulmonary process. Reviewed, Interpreted and Dictated by Mark Grace III, MD Transcribed by Sharmaine Irwin Authenticated by Mark Grace III, MD on 09/09/2021 03:18:58 PM [facility]
--- NOTE | 2021-09-09 13:37 | HMH.EDGENADL ---
ED Disposition Clinical Impression: COPD exacerbation, Elevated troponin Respiratory failure with hypoxia and hypercapnia Qualifiers: Chronicity: acute on chronic Qualified Code(s): J96.21 - Acute and chronic respiratory failure with hypoxia Disposition: Admitted As Inpatient Condition on Discharge: Serious - Critical Care Critical Care Time: Yes Attestation: On , the high probability of a clinically significant, sudden or life threatening deterioration of the following system(s) required my full and direct attention, intervention and personal management. The time I documented below is in addition to time spent performing reported procedures but includes the following listed in this critical care notation. Vital system(s) involved:: Respiratory Failure My critical care processes included: Assessment & monitoring of V/S, Initial and Re-exams, Data Review/Interpretation, Coordinating Care, Medication Orders and management, Documentation Medical Decision Making - Roberto Inquiry Pt receiving controlled substance: No Vital Signs: 09/09/21 13:21 09/09/21 14:00 09/09/21 14:30 Temperature 98.7 F Temperature Source Oral Pulse Rate 79 78 Pulse Rate [Right Radial] 88 Respiratory Rate 26 H 21 23 Blood Pressure 144/74 H 130/69 Blood Pressure [Right Arm] 140/89 Blood Pressure Mean [Right Arm] 106 Blood Pressure Source [Right Arm] Automatic Cuff Blood Pressure Position [Right Arm] Sitting 02 Sat by Pulse Oximetry 72 L 100 98 Oxygen Delivery Method Room Air 09/09/21 15:00 09/09/21 15:30 09/09/21 16:00 Temperature 98.8 F Temperature Source Axillary Pulse Rate 72 71 69 Pulse Rate [Right Radial] 74 Respiratory Rate 19 13 17 Blood Pressure 123/65 130/68 121/64 Blood Pressure [Right Arm] 148/90 H Blood Pressure Mean [Right Arm] 109 Blood Pressure Source [Right Arm] Automatic Cuff Blood Pressure Position [Right Arm] Supine 02 Sat by Pulse Oximetry 99 92 L 91 L Oxygen Delivery Method BiPAP 09/09/21 16:30 Temperature Temperature Source Pulse Rate 69 Pulse Rate [Right Radial] Respiratory Rate 21 Blood Pressure 122/66 Blood Pressure [Right Arm] Blood Pressure Mean [Right Arm] Blood Pressure Source [Right Arm] Blood Pressure Position [Right Arm] 02 Sat by Pulse Oximetry 82 L Oxygen Delivery Method - Lab Data Lab Results 09/09/21 13:34: Troponin I 0.99 H, Salicylates < 1.0 L, Acetaminophen < 10 L 09/09/21 13:34: WBC 9.3, RBC 4.58, Hgb 15.0, Hct 47.5 H, MCV 103.7 H, MCH 32.6 H, MCHC 31.5 L, RDW 14.8, Plt Count 468 H, MPV 7.6, Neut % (Auto) 83.2 H, Lymph % (Auto) 11.3, Maries % (Auto) 4.4, Eos % (Auto) 0.2, Baso % (Auto) 0.8, Neut # (Auto) 7.7, Lymph # (Auto) 1.1, Maries # (Auto) 0.4, Eos # (Auto) 0.0, Baso # (Auto) 0.1 09/09/21 13:34: Sodium 140, Potassium 5.2 H, Chloride 102, Carbon Dioxide 30, Anion Gap 13.2, BUN 17, Creatinine 1.90 H, Estimated GFR 27 L, Est GFR ( Amer) 33 L, Glucose 192 H, Calcium 9.2, Total Bilirubin 0.5, AST 75 H, ALT 37, Alkaline Phosphatase 77, Total Protein 6.9, Albumin 4.2, Globulin 2.7, Albumin/Globulin Ratio 1.6 09/09/21 13:34: Plasma/Serum Alcohol < 10 09/09/21 13:34: NT-Pro-B Natriuret Pep 7890 H 09/09/21 13:35: Specimen Source Right radial, O2 % 5 lpm, ABG pH 7.22 L*, ABG pCO2 73.7 H, ABG pO2 80.7, ABG HCO3 29.6 H, ABG Total CO2 31.8 H, ABG O2 Saturation 95, ABG Base Excess 1.9, Dg Test Patient unable 09/09/21 13:37: SARS-CoV-2 (PCR) Not detected, Influenza A Untype (PCR) Not detected, Influenza Type B (PCR) Not detected 09/09/21 16:23: Troponin I 1.59 H 09/09/21 16:28: Lactate 0.9 Result diagrams: 09/09/21 13:34 09/09/21 13:34 Orders (Tests/Meds): ED MEDICATIONS Generic Name Dose Route Start Last Admin Trade Name Freq PRN Reason Stop Dose Admin Acetaminophen 650 mg 09/09/21 17:37 Acetaminophen 325mg Tab PO 10/09/21 17:36 Q4HP PRN Fever or Mild Pain Albuterol/Ipratropium 3 ml 09/09/21 20:00 09/09/21 20:29 Ip
[2021-09-09 13:44] LABS: ABG Base Excess 1.9 mmol/L (-2.4-2.3); ABG HCO3 29.6 mmhg (22.0-26.0); ABG Oxygen Saturation 95 % (90-100); ABG PH 7.22 mmol/L (7.35-7.45); ABG PO2 80.7 mmhg (80-100); ABG TCO2 31.8 mmhg (23-27)
--- NOTE | 2021-09-09 13:45 | PC.NURSE ---
rad at BS for portable xray
[2021-09-09 13:46] LABS: Coronavirus 19, PCR Not Detected (NotDetected); Influenza A, PCR Not Detected (NotDetected); Influenza B, PCR Not Detected (NotDetected)
[2021-09-09 13:48] LABS: Allen's Test Patient Unable; Source Right Radial
[2021-09-09 13:50] LABS: ABG PCO2 73.7 mmhg (35.0-45.0)
[2021-09-09 13:52] LABS: Chloride 102 mmol/L (98-107); Potassium 5.2 mmoL/L (3.5-5.1); Sodium 140 mmol/L (136-145)
[2021-09-09 13:54] LABS: Blood Urea Nitrogen 17 mg/dl (7-17); Estimated Glomerular Filt Rate 27 ml/min (>60); GFR (African American) 33 ML/MIN (>60)
[2021-09-09 13:55] LABS: Alanine Aminotransferase 37 U/L (12-78); Albumin Level 4.2 g/dl (3.5-5.0); Albumin/Globulin Ratio 1.6 (1.1-1.8); Alkaline Phosphatase 77 U/L (38-126); Anion Gap 13.2 mEq/L (5-15); Aspartate Amino Transferase 75 U/L (14-36); Bilirubin,Total 0.5 mg/dl (0.2-1.3); Calcium 9.2 mg/dl (8.4-10.2); Carbon Dioxide 30 mmol/L (22.0-30.0); Globulin 2.7 g/dL (1.3-3.2); Glucose 192 mg/dl (74-100); Total Protein,Serum 6.9 g/dl (6.3-8.2)
[2021-09-09 13:57] LABS: Ethyl Alcohol < 10 mg/dl (0-10)
[2021-09-09 14:00] LABS: Basophils # 0.1 K/mm3 (0-0.2); Basophils % 0.8 % (0.1-2.0); Eosinophils % 0.2 % (0.1-12.0); Hematocrit 47.5 % (37.0-47.0); Lymphocytes # 1.1 K/mm3 (0.7-4.5); Lymphocytes % 11.3 % (10-50); Mean Corpuscular HGB Conc 31.5 g/dL (31.8-35.4); Mean Corpuscular Hemoglobin 32.6 pg (27.0-31.2); Mean Corpuscular Volume 103.7 fl (81-99); Mean Platelet Volume 7.6 fl (7.4-10.4); Monocytes # 0.4 K/mm3 (0.1-1.0); Monocytes % 4.4 % (1.7-9.3); Neutrophils # 7.7 K/mm3 (1.8-7.8); Neutrophils % 83.2 % (37.0-80.0); Platelet Count 468 K/mm3 (142-424); Red Blood Count 4.58 M/mm3 (4.20-5.40); Red Cell Distribution Width 14.8 % (11.5-17.5); White Blood Count 9.3 K/mm3 (4.8-10.8)
[2021-09-09 14:04] LABS: NT Pro Brain Natriuretic Pep. 7890 pg/mL (0-125)
--- NOTE | 2021-09-09 14:08 | CT_ITS ---
FINAL REPORT CLINICAL HISTORY: AMS COMPARISON: December 25, 2018 FINDINGS: Axial images of the head were obtained without contrast. Coronal reformatted images were also obtained.This study was performed with techniques to keep radiation doses as low as reasonably achievable (ALARA). Individualized dose reduction techniques using automated exposure control or adjustment of mA and/or kV according to the patient''s size were employed. There is no evidence of intracranial hemorrhage or mass. The ventricular size is within normal limits. There is no evidence of shift of the midline structures. No abnormal extra axial fluid collection is identified. No skull abnormality is seen on the bone window images. IMPRESSION: No acute intracranial abnormality. Reviewed, Interpreted and Dictated by Mark Grace III, MD Transcribed by Justin Perdue Authenticated by Mark Grace III, MD on 09/09/2021 03:18:59 PM [facility]
[2021-09-09 14:40] LABS: Acetaminophen < 10 ug/ml (10-30); Salicylate < 1.0 mg/dL (2.0-20.0)
--- NOTE | 2021-09-09 14:46 | PC.NURSE ---
Pt in bed on bipap with daughter at bedside
[2021-09-09 14:53] LABS: Troponin I 0.99 ng/ml (0.00-0.034)
--- NOTE | 2021-09-09 14:53 | PC.NURSE ---
Lab called troponin of 0.99 K.MERLIN Mena notified
--- NOTE | 2021-09-09 14:55 | CA_ITS ---
APPROVED REPORT EXAM: Comprehensive 2D, Doppler, and color-flow Echocardiogram Test Architect: Sharon Brandt RT(R) Ht: 5 ft 6 in Wt: 130lbs BSA: 1.67 BP: 140/89 mmHg Indications: AMS, COPD, murmur, smoker, HTN, hyperlipidemia, on bipap supine on back, CAD. Patient unresponsive and on bipap so imaging is limited due to lung int and patient positioning. 2D Dimensions LVOT 1.88 cm (M/F) 1.5-2.5 M-Mode Dimensions RVDd 3.04 cm (0.9-2.6) LA Diam 3.32 cm (1.9-4.0) LVDd 3.65 cm (3.5-5.7) Ao Diam 2.48 cm (2.0-3.7) LVDs 2.93 cm (3.5-5.7) IVSd 0.99 cm (0.6-1.1) PWd 0.76 cm (0.6-1.1) EF (Teich) 41.40% FS 19.70% EDV (Teich) 56.30 mL ESV (Teich) 33.00 mL LV Diastology E Decel Time 160.00 (160-240 msec) E/A Ratio 0.9 MED E' 8.40 (< 7 cm/sec) E'/MED E' Ratio 7.92 (>14) LAT E' 11.20 (<10 cm/sec) E/LAT E' Ratio 5.94 (>14) Mitral Valve MV E Max Michael. 66.00 (40-130 cm/s) MV A Velocity 76.00 (40-130 cm/s) E/A Ratio 0.88 MV Decel. Time 160.00 (160-240 ms) MV PHT 47.00 ms Left Ventricle Left atrium is mildly enlarged, left ventricle is normal size, mild concentric left ventricular hypertrophy, estimated ejection fraction 55% with no obvious regional wall motion abnormality in the obtained views. Doppler evidence of impaired LV relaxation seen, tissue Doppler is inadequate. Right Ventricle Right atrium and right ventricle mildly enlarged with normal contractility. Aortic Valve Aortic valve is minimally thickened and calcified without aortic stenosis or aortic insufficiency. Mitral Valve Mitral valve grossly normal, there is trace mitral regurgitation. Tricuspid Valve Tricuspid valve grossly normal, there is trace tricuspid regurgitation, tricuspid regurgitation jet velocity is inadequate for calculation of the right ventricular systolic pressure. Pulmonic Valve Pulmonic valve is poorly visualized. Great Vessels Aortic root is normal size. Inferior vena cava is poorly visualized. Pericardium No significant pericardial effusion noted. Conclusion 1. Mild biatrial enlargement, normal left ventricular size, mild concentric left ventricular hypertrophy, estimated ejection fraction 55% with no regional wall motion abnormality, Doppler evidence of impaired LV relaxation. 2. Mildly enlarged right ventricle with normal contractility. 3. Trace mitral and tricuspid regurgitation. 4. No significant pericardial effusion noted. 5. Inferior vena cava is poorly visualized. Electronically signed by : John Reese MD 09/09/2021 20:51:05
--- NOTE | 2021-09-09 14:56 | PC.NURSE ---
Calling for an echo at this time
--- NOTE | 2021-09-09 15:00 | PC.NURSE ---
Updated daughter on lab results and advised that they were coming to do an echo. Daughter stated understanding and that she was going to step out for a while and would return to bedside soon.
--- NOTE | 2021-09-09 15:28 | PC.NURSE ---
Echo at bedside
[2021-09-09 16:54] LABS: Lactic Acid 0.9 mmol/L (0.7-2.1)
--- NOTE | 2021-09-09 17:01 | PC.NURSE ---
checked on pt at this time, daughter at BS, states no needs at this time
--- NOTE | 2021-09-09 17:02 | PC.NURSE ---
Called report to Jossy Choudhary
[2021-09-09 17:19] LABS: Troponin I 1.59 ng/ml (0.00-0.034)
--- NOTE | 2021-09-09 17:20 | PC.NURSE ---
notified ER MD of troponin 1.[address] asked me to consult dr. syed requested event av operator page dr. syed at this time.
--- NOTE | 2021-09-09 17:27 | PC.NURSE ---
JENNIFER AGUILAR speaking with dr. syed.
--- NOTE | 2021-09-09 17:31 | PC.NURSE ---
Spoke with Unique Junior on 2nd floor. Advised that ED physician consulted with Dr Veliz and ordered for dose of ASA and to begin Lovenox.
--- NOTE | 2021-09-09 17:50 | PC.NURSE ---
Unable to complete med rec. Pt is unable to answer questions and daughter is unsure of what medications pt is currently taking.
[2021-09-09 18:37] LABS: Amphetamine/Metha Screen,Urine Negative ng/ml (<1000); Benzodiazepines Screen,Urine Negative ng/ml (<200)
[2021-09-09 18:38] LABS: Barbiturates Screen,Urine Negative ng/ml (<200)
[2021-09-09 18:39] LABS: Cannabinoid Screen,Urine Positive ng/ml (<50); Cocaine Screen,Urine Negative ng/ml (<300)
[2021-09-09 18:40] LABS: Methadone Screen,Urine Negative ng/ml (<300); Opiate Screen,Urine Positive ng/ml (<300)
[2021-09-09 18:41] LABS: Phencyclidine Screen,Urine Negative ng/ml (<25)
--- NOTE | 2021-09-09 20:38 | PC.NURSE ---
Lab called with a critical troponin Name, and value verified x2. [employer] consultant notified.
[2021-09-10] VITALS (12 sets, daily range): BP systolic 133–158; BP diastolic 66–84; PULSE 59–87; RESP 18–24; TEMP 36.4–37.1; O2SAT 92–100; BMI 19.0
--- NOTE | 2021-09-10 03:50 | PC.NURSE ---
Patient has rested thus far. Patient responds to light pain when aroused. Patient had complaints of nausea and was treated per MAR with favorable results. Patient remains somnolent thus far. She has tolerated the BiPap this RN's shift.
--- NOTE | 2021-09-10 07:18 | HMH.PHAVTE ---
[facility] Pharmacy VTE Monitoring - Patient Demographics Admission date: 09/09/21 Report Date: 09/10/21 Time: 07:18 Allergies/Adverse Reactions: Patient Allergies cefdinir [CEFDINIR] Allergy (Unknown, Verified 08/24/21 16:03) I-ITCHING amoxicillin [From Augmentin] Allergy (Verified 08/24/21 16:03) clavulanic acid [From Augmentin] Allergy (Verified 08/24/21 16:03) Height: 1.68 m Weight: 53.751 kg Patient Problems: Current Active Problems (Last Updated 04/20/18 @ 15:56 by JASPAL Walter) Respiratory failure with hypoxia and hypercapnia (Acute) Elevated troponin (Acute) COPD exacerbation (Acute) - VTE Risk Labs: VTE Related Lab Results Hgb 15.0 g/dL (12.2-16.2) 09/09/21 13:34 Hct 47.5 % (37.0-47.0) H 09/09/21 13:34 Plt Count 468 K/mm3 (142-424) H 09/09/21 13:34 BUN 17 mg/dl (7-17) 09/09/21 13:34 Creatinine 1.90 mg/dl (0.52-1.04) H 09/09/21 13:34 VTE Score: 9 VTE Risk Level: Moderate Risk - Prophylaxis VTE Prophylaxis Ordered?: Yes Types of VTE Prophylaxis: TEDS Knee High, Pharmacological Location of Applied Device: Bilateral Lower Extremeties Pharmacologic Type: Enoxaparin
--- NOTE | 2021-09-10 08:08 | HMH.PHAINT ---
MEDICATION RECONCILIATION COMPLETED ON PATIENT USING EXTERNAL FILL HISTORY FROM PHARMACY AND LIST FROM PCP OFFICE. -HANNAH CARMONAD
--- NOTE | 2021-09-10 09:22 | HMH.PULMCON ---
*Admission Date: 09/09/21 [facility] History Medical History: Reports:: Aneurysm, Arrhythmia, Asthma, Chronic Obstructive Pulmonary Disease (COPD), Coronary Artery Disease, Heart Murmur, Hyperlipidemia, Hypertension, Myocardial Infarction Denies:: Cancer, Diabetes Mellitus Type 1, Diabetes Mellitus Type 2, MRSA *Have you ever received a pneumonia vaccine?: Yes *Have you received a flu vaccine this season?: Yes Other Medical History: Reports: Anemia, Arthritis, Fibromyalgia, Sinus Problems Other Surgeries: Yes: Angiogram, Cardiac Catheterization, Cholecystectomy, Colonoscopy, Coronary Stent, Hysterectomy-Total Amputation: No Fractures: No - *Social History Smoking Status: Current every day smoker Tobacco Type: cigarettes # Packs/Day (cigarettes): 2 #Yrs smoked (if former smoker): 35 Alcohol Intake: current Alcohol Intake Frequency:: holidays/special occasions only Substance Use Type: marijuana *Occupational Status:: disabled Housing: apartment Household Members: friend(s) *Travel in the last 8 weeks: None Family Hx:: Unable to obtain Meds Home Medications Medication Instructions Recorded Confirmed Type aspirin 81 mg tablet,delayed 81 mg PO DAILY 02/08/19 09/09/21 History release gabapentin 800 mg tablet 800 mg PO QID #120 tab 08/24/21 09/09/21 Rx oxycodone 10 mg tablet 10 mg PO QID #120 tab 08/24/21 09/09/21 Rx Albuterol Sulfate [Albuterol 2 puff IH Q4HP PRN 09/09/21 09/10/21 History Sulfate Hfa] Cetirizine HCl 10 mg PO DAILY 09/09/21 09/10/21 History Cholecalciferol (Vitamin D3) 25 mcg PO DAILY 09/09/21 09/09/21 History [Vitamin D3] Clopidogrel Bisulfate [Plavix] 75 mg PO DAILY 09/09/21 09/09/21 History Ergocalciferol (Vitamin D2) 1,250 unit PO WEEKLY 09/09/21 09/09/21 History [Drisdol] Escitalopram Oxalate 20 mg PO DAILY 09/09/21 09/09/21 History Fluticasone Propion/Salmeterol 1 puff IH BID 09/09/21 09/10/21 History [Fluticasone-Salmeterol 250-50] Ipratropium/Albuterol Sulfate 3 ml IH TID 09/09/21 09/10/21 History [Duoneb 3mL neb] Metoprolol Succinate [Metoprolol 100 mg PO DAILY 09/09/21 09/09/21 History Succinate 100mg Tablet*] Pravastatin Sodium [Pravachol 40mg 40 mg PO HS 09/09/21 09/09/21 History Tablet] clonazePAM [Clonazepam] 0.5 mg PO BID 09/09/21 09/09/21 History Tiotropium [place] [Spiriva 2 puffs IH DAILY 09/10/21 09/10/21 History Respimat] Allergies Allergy/AdvReac Type Severity Reaction Status Date / Time cefdinir [CEFDINIR] Allergy Unknown I-ITCHING Verified 08/24/21 16:03 amoxicillin [From Augmentin] Allergy Verified 08/24/21 16:03 clavulanic acid Allergy Verified 08/24/21 16:03 [From Augmentin] Internal Medicine - CN: Reslt - Labs CBC & Chem 7: 09/09/21 13:34 09/09/21 13:34 Labs: Short CBC 09/09/21 Range/Units 13:34 WBC 9.3 (4.8-10.8) K/mm3 Hgb 15.0 (12.2-16.2) g/dL Hct 47.5 H (37.0-47.0) % Plt Count 468 H (142-424) K/mm3 BMP 09/09/21 13:34 Sodium 140 Potassium 5.2 H Chloride 102 Carbon Dioxide 30 BUN 17 Creatinine 1.90 H Glucose 192 H Calcium 9.2 Cardiac Enzymes 09/09/21 09/09/21 09/09/21 Range/Units 13:34 16:23 20:00 Troponin I 0.99 H 1.59 H 1.80 H (0.00-0.034) ng/ml Liver Function 09/09/21 Range/Units 13:34 Total Bilirubin 0.5 (0.2-1.3) mg/dl AST 75 H (14-36) U/L ALT 37 (12-78) U/L Alkaline Phosphatase 77 (38-126) U/L Albumin 4.2 (3.5-5.0) g/dl - ABG Interpretation ABG results: 09/09/21 13:35 ABG pH 7.22 L* ABG pCO2 73.7 H ABG pO2 80.7 ABG HCO3 29.6 H ABG Total CO2 31.8 H ABG O2 Saturation 95 ABG Base Excess 1.9 Assessment and Plan - Assessment and plan all Dx Assessment and Plan for all problems:: #Acute on chronic hypoxic hypercarbic respiratory failure: #COPD exacerbation: #Community-acquired pneumonia: Current smoker greater than [id number] smoking history. Found unresponsive at home was. Admission ABG showed
--- NOTE | 2021-09-10 09:36 | HMH.CNCARD ---
History of Present Illness Consult date: 09/10/21 Requesting physician: Darell Casillas Chief complaint: Found unresponsive, Hypoxic, elevated troponin Additional Medical History:: 1. Severe COPD with chronic oxygen and BiPAP use A. Patient found unresponsive 09/09/2021 with ER evaluation noting hypoxic hypercapnic respiratory failure 2. Remote history of VT A. History of normal stress test 2018 B. Echocardiogram 09/09/2021, 1. Mild biatrial enlargement, normal left ventricular size, mild concentric left ventricular hypertrophy, estimated ejection fraction 55% with no regional wall motion abnormality, Doppler evidence of impaired LV relaxation. 2. Mildly enlarged right ventricle with normal contractility. 3. Trace mitral and tricuspid regurgitation. 4. No significant pericardial effusion noted. 5. Inferior vena cava is poorly visualized. 3. Chronic opioid use 4. Hypertension 5. Hyperlipidemia 6. Anxiety/depression History of present illness: 61-year-old white female with severe COPD on chronic oxygen during the day with BiPAP at night was found unresponsive at home yesterday. Work-up in the ER noted the patient to be hypoxic with hypercapnic respiratory failure was started on BiPAP therapy. Lab work returned with elevated troponins but echocardiogram yesterday showed normal ejection fraction. Patient had a normal cardiac stress test in 2019. This a.m. patient is still minimally responsive to questions but opens eyes and is restless in bed which makes it difficult to keep the BiPAP in place. Patient's daughter states that the patient's mother yesterday and she is unaware of this. EKG sinus rhythm with poor R wave progression anteriorly. [facility] History Medical History: Reports:: Aneurysm, Arrhythmia, Asthma, Chronic Obstructive Pulmonary Disease (COPD), Coronary Artery Disease, Heart Murmur, Hyperlipidemia, Hypertension, Myocardial Infarction Denies:: Cancer, Diabetes Mellitus Type 1, Diabetes Mellitus Type 2, MRSA *Have you ever received a pneumonia vaccine?: Yes *Have you received a flu vaccine this season?: Yes Other Medical History: Reports: Anemia, Arthritis, Fibromyalgia, Sinus Problems Other Surgeries: Yes: Angiogram, Cardiac Catheterization, Cholecystectomy, Colonoscopy, Coronary Stent, Hysterectomy-Total Amputation: No Fractures: No - *Social History Smoking Status: Current every day smoker Tobacco Type: cigarettes # Packs/Day (cigarettes): 2 #Yrs smoked (if former smoker): 35 Alcohol Intake: current Alcohol Intake Frequency:: holidays/special occasions only Substance Use Type: marijuana *Occupational Status:: disabled Housing: apartment Household Members: friend(s) *Travel in the last 8 weeks: None Family Hx:: Unable to obtain Meds Home Medications Medication Instructions Recorded Confirmed Type aspirin 81 mg tablet,delayed 81 mg PO DAILY 02/08/19 09/09/21 History release gabapentin 800 mg tablet 800 mg PO QID #120 tab 08/24/21 09/09/21 Rx oxycodone 10 mg tablet 10 mg PO QID #120 tab 08/24/21 09/09/21 Rx Albuterol Sulfate [Albuterol 2 puff IH Q4HP PRN 09/09/21 09/10/21 History Sulfate Hfa] Cetirizine HCl 10 mg PO DAILY 09/09/21 09/10/21 History Cholecalciferol (Vitamin D3) 25 mcg PO DAILY 09/09/21 09/09/21 History [Vitamin D3] Clopidogrel Bisulfate [Plavix] 75 mg PO DAILY 09/09/21 09/09/21 History Ergocalciferol (Vitamin D2) 1,250 unit PO WEEKLY 09/09/21 09/09/21 History [Drisdol] Escitalopram Oxalate 20 mg PO DAILY 09/09/21 09/09/21 History Fluticasone Propion/Salmeterol 1 puff IH BID 09/09/21 09/10/21 History [Fluticasone-Salmeterol 250-50] Ipratropium/Albuterol Sulfate 3 ml IH TID 09/09/21 09/10/21 History [Duoneb 3mL neb] Metoprolol Succinate [Metoprolol 100 mg PO DAILY 09/09/21 09/09/21 History Succinate 100mg Tablet*] Pravastatin Sodium [Pravachol 40mg 40 mg PO HS 09/09/21 09/09/21 History Tablet] clonazePAM [Clonazepam] 0.5 mg PO BID 09/09/21 09/09/21 Histor
[2021-09-10 09:43] LABS: ABG Base Excess 2.3 mmol/L (-2.4-2.3); ABG HCO3 26.6 mmhg (22.0-26.0); ABG Oxygen Saturation 97 % (90-100); ABG PCO2 40.7 mmhg (35.0-45.0); ABG PH 7.43 mmol/L (7.35-7.45); ABG PO2 88.1 mmhg (80-100); ABG TCO2 27.8 mmhg (23-27)
[2021-09-10 09:44] LABS: Allen's Test ACCEPTABLE; Oxygen 35 %; Source L RADIAL; Tidal Volume 18/6
--- NOTE | 2021-09-10 10:43 | HMH.HP ---
*Admission Date: 09/09/21 *Chief complaint: Found down at home *History of present illness: 61-year-old female patient presented to the [facility] emergency department via EMS after being found at home with altered mental status. Family reports not hearing from patient yesterday went to her house last night and she was found unresponsive on floor. She does have a history of COPD and is on home oxygen with nighttime BiPAP. All history was obtained from EMS and her daughter, daughter reports patient does not use drugs or alcohol. This morning patient is on BiPAP is minimal and only responsive and does not follow commands. [facility] History I have reviewed the patient's past medical history: Yes Medical History: Reports:: Aneurysm, Arrhythmia, Asthma, Chronic Obstructive Pulmonary Disease (COPD), Coronary Artery Disease, Heart Murmur, Hyperlipidemia, Hypertension, Myocardial Infarction Denies:: Cancer, Diabetes Mellitus Type 1, Diabetes Mellitus Type 2, MRSA *Have you ever received a pneumonia vaccine?: Yes *Have you received a flu vaccine this season?: Yes Other Medical History: Reports: Anemia, Arthritis, Fibromyalgia, Sinus Problems Other Surgeries: Yes: Angiogram, Cardiac Catheterization, Cholecystectomy, Colonoscopy, Coronary Stent, Hysterectomy-Total Amputation: No Fractures: No - *Social History Smoking Status: Current every day smoker Tobacco Type: cigarettes # Packs/Day (cigarettes): 2 #Yrs smoked (if former smoker): 35 Alcohol Intake: current Alcohol Intake Frequency:: holidays/special occasions only Substance Use Type: marijuana *Occupational Status:: disabled Housing: apartment Household Members: friend(s) *Travel in the last 8 weeks: None Family Hx:: Unable to obtain Review of Systems - Review of Systems Review of systems:: unable to obtain Patient was unable to answer questions and no family present Meds Home Medications Medication Instructions Recorded Confirmed Type aspirin 81 mg tablet,delayed 81 mg PO DAILY 02/08/19 09/09/21 History release gabapentin 800 mg tablet 800 mg PO QID #120 tab 08/24/21 09/09/21 Rx oxycodone 10 mg tablet 10 mg PO QID #120 tab 08/24/21 09/09/21 Rx Albuterol Sulfate [Albuterol 2 puff IH Q4HP PRN 09/09/21 09/10/21 History Sulfate Hfa] Cetirizine HCl 10 mg PO DAILY 09/09/21 09/10/21 History Cholecalciferol (Vitamin D3) 25 mcg PO DAILY 09/09/21 09/09/21 History [Vitamin D3] Clopidogrel Bisulfate [Plavix] 75 mg PO DAILY 09/09/21 09/09/21 History Ergocalciferol (Vitamin D2) 1,250 unit PO WEEKLY 09/09/21 09/09/21 History [Drisdol] Escitalopram Oxalate 20 mg PO DAILY 09/09/21 09/09/21 History Fluticasone Propion/Salmeterol 1 puff IH BID 09/09/21 09/10/21 History [Fluticasone-Salmeterol 250-50] Ipratropium/Albuterol Sulfate 3 ml IH TID 09/09/21 09/10/21 History [Duoneb 3mL neb] Metoprolol Succinate [Metoprolol 100 mg PO DAILY 09/09/21 09/09/21 History Succinate 100mg Tablet*] Pravastatin Sodium [Pravachol 40mg 40 mg PO HS 09/09/21 09/09/21 History Tablet] clonazePAM [Clonazepam] 0.5 mg PO BID 09/09/21 09/09/21 History Tiotropium [place] [Spiriva 2 puffs IH DAILY 09/10/21 09/10/21 History Respimat] Allergies Allergy/AdvReac Type Severity Reaction Status Date / Time cefdinir [CEFDINIR] Allergy Unknown I-ITCHING Verified 08/24/21 16:03 amoxicillin [From Augmentin] Allergy Verified 08/24/21 16:03 clavulanic acid Allergy Verified 08/24/21 16:03 [From Augmentin] Exam Vital signs and Labs for Last 24 Hours: Temp Pulse Resp BP Pulse Ox 97.8 F 75 18 158/77 H 94 L 09/10/21 07:40 09/10/21 10:41 09/10/21 07:40 09/10/21 07:40 09/10/21 07:40 Laboratory Results - last 24 hr 09/09/21 13:34: Troponin I 0.99 H, Salicylates < 1.0 L, Acetaminophen < 10 L 09/09/21 13:34: WBC 9.3, RBC 4.58, Hgb 15.0, Hct 47.5 H, MCV 103.7 H, MCH 32.6 H, MCHC 31.5 L, RDW 14.8, Plt Count 468 H, MPV 7.6, Neut % (Auto) 83.2
--- NOTE | 2021-09-10 13:34 | PC.NURSE ---
Placed mitts on pt she is getting restless and attempting to take off BIPAP.
[2021-09-10 14:43] LABS: Microscopic, Urine URINE MICROSCOPIC (MICROSCOPIC)
[2021-09-10 14:55] LABS: Appearance,Urine CLEAR (Clear); Bilirubin,Urine Negative (Negative); Blood, Urine 3+ (Negative); Color,Urine YELLOW (Yellow); Glucose,Urine (UA) Negative (Negative); Ketones,Urine TRACE (Negative); Leukocyte Esterase,Urine Negative (Negative); Nitrate,Urine Negative (Negative); Protein,Urine 1+ (Negative); Specific Gravity, Urine 1.025 (1.005-1.030); Urobilinogen,Urine 0.2 EU/dl (0.2)
[2021-09-10 15:27] LABS: WBC,Urine Occasional #/hpf (0-3)
[2021-09-10 15:28] LABS: Amorphous Sediment,Urine 1+ /lpf; Bacteria,Urine Trace /lpf; Mucus,Urine 3+ /lpf; Transitional Epi Cells,Urine OCC #/lpf (0-3)
--- NOTE | 2021-09-10 19:56 | PC.NURSE ---
Pt at beginning of shift was completely nonverbal wearing the BIPAP. She started to become very restless and taking off bipap. Pulm decided based of ABG to rotate between BIPAP and NC. She through out the day has become more A/O. She told me who family members were, where she was, and that she was hurting. I got her to take a drink and some medication by mouth. She was starting to really become very restless and I gave her some pain medication. She settled down and has been resting the last part of my shift. Family members have been at bedside the entire day.
[2021-09-11] VITALS (11 sets, daily range): BP systolic 140–163; BP diastolic 59–79; PULSE 58–76; RESP 16–23; TEMP 36.6–37; O2SAT 90–100; BMI 19.8
--- NOTE | 2021-09-11 04:20 | PC.NURSE ---
pt slept most of night, pt with 02 sats 97% on 02 at 4L pnc, pt alternated between nasal cannula and bipap, but wore bipap most of the night with sats 99%, lungs diminished, pt gets anxious and soa at times, pt is more oriented to self, place, , but confused at times to year. Family remained at bedside most of night, pt complained of nausea after medications PO were given, f/c to bsd w/clear yellow urine noted.
[2021-09-11 06:27] LABS: Basophils % 0.3 % (0.1-2.0); Hematocrit 38.9 % (37.0-47.0); Lymphocytes # 0.3 K/mm3 (0.7-4.5); Lymphocytes % 5.7 % (10-50); Mean Corpuscular HGB Conc 33.4 g/dL (31.8-35.4); Mean Corpuscular Hemoglobin 33.3 pg (27.0-31.2); Mean Corpuscular Volume 99.5 fl (81-99); Mean Platelet Volume 7.6 fl (7.4-10.4); Monocytes # 0.2 K/mm3 (0.1-1.0); Monocytes % 4.1 % (1.7-9.3); Neutrophils % 89.8 % (37.0-80.0); Platelet Count 262 K/mm3 (142-424); Red Blood Count 3.91 M/mm3 (4.20-5.40); Red Cell Distribution Width 15.1 % (11.5-17.5); White Blood Count 5.5 K/mm3 (4.8-10.8)
[2021-09-11 06:38] LABS: Anion Gap 7.9 mEq/L (5-15); Blood Urea Nitrogen 26 mg/dl (7-17); Calcium 8.6 mg/dl (8.4-10.2); Carbon Dioxide 31 mmol/L (22.0-30.0); Chloride 101 mmol/L (98-107); Creatinine Clearance Estimated 59 mL/min (50-200); Estimated Glomerular Filt Rate 64 ml/min (>60); GFR (African American) 78 ML/MIN (>60); Glucose 138 mg/dl (74-100); Potassium 3.9 mmoL/L (3.5-5.1); Sodium 136 mmol/L (136-145)
[2021-09-11 06:39] LABS: MANUAL DIFFERENTIAL MANUAL DIFFERENTIAL (MANUAL DIFF)
[2021-09-11 07:14] LABS: Lymphocytes % 13 % (10-50); Monocytes % 3 % (2-9); Neutrophils % 84 % (42-76); Platelet Estimate Normal; RBC Morphology Normal; Total Cells Counted 100
--- NOTE | 2021-09-11 09:44 | HMH.PULMPN ---
Internal Medicine - PN: Subj *Date: 09/11/21 *Time: 14:10 Interval history: Patient admits continued improvement in her symptoms. No acute respiratory events overnight. Weaned to nasal cannula. Exam - Constitutional Constitutional:: Present: no acute distress, comfortable - HENMT Exam HENMT: Present: normocephalic - Eye Exam Eyes:: Present: normal appearance both eyes and related structures - Neck Exam Neck:: Present: normal visual inspection - Respiratory Exam Respiratory:: Present: able to speak in complete sentences, respiratory distress, wheezing - Cardiovascular Exam Cardiac:: Present: S1, S2 - GI Exam GI:: Present: soft - Skin Exam Skin: Present: warm, no rash - Neurological Exam Neurological: Present: alert, awake - Extremities Exam Extremities: Present: no cyanosis, no clubbing, no edema Assessment and Plan - Assessment and plan all Dx Assessment and Plan for all problems:: #Acute on chronic hypoxic hypercarbic respiratory failure: #COPD exacerbation: #Community-acquired pneumonia: Current smoker greater than 80-cvtf-yeys smoking history. Found unresponsive at home was. Admission ABG showed hypercarbia and was initiated on BiPAP. No evidence of leukocytosis. Elevated troponin @ 0.99 with delta increase after and BNP on admission. ABG on admission showed hypercarbic respiratory failure PCO2 7.31 and pH of 7.22. Initiating DuoNebs 4 times daily, levofloxacin and methylprednisolone 80 mg every 8 hours. Blood cultures pending. No sputum cultures. Chest x-ray upon admission showed bilateral lower lobe minimal airspace disease along with evidence of vascular congestion. Concerning for right upper lobe lung nodule. Prior history of staph and haemophilus influenza from June 2017, Staph aureus sensitive to clindamycin Interval update: Patient respiratory status significantly improved from yesterday with improving auscultation still having mild expiratory wheeze. Weaned to nasal cannula. Plan: -Follow-up with sputum culture, sputum induction. -Change antibiotic to clindamycin 600 mg 3 times daily along with azithromycin, can be weaned to oral antibiotics to complete a total of 5-day course upon discharge. -Continue DuoNebs every 4 along with budesonide every 12 schedule -Wean steroids to prednisone 40 mg daily for 5 days #Lung nodules: Patient CTA from June showed right upper lobe and lower lobe calcified lung nodules likely benign. Will monitor clinically. #Thank you for involving pulmonary in this patient care. We will follow the patient in pulmonary clinic in 4 to 6 weeks with a full PFT and a 6-minute walk testing.
--- NOTE | 2021-09-11 10:01 | HMH.ACPN2 ---
Internal Medicine - PN: Subj *Date: 09/11/21 *Time: 08:10 Interval history: pt sitting up in bed family at bedside, on o2 Exam Vital signs and Labs for Last 24 Hours: Temp Pulse Resp BP Pulse Ox 98.1 F 68 18 162/78 H 95 09/11/21 08:00 09/11/21 08:00 09/11/21 08:00 09/11/21 08:00 09/11/21 08:00 Laboratory Results - last 24 hr 09/10/21 14:35: Urine Color Yellow, Urine Appearance Clear, Urine pH 6.0, Ur Specific [place] 1.025, Urine Protein 1+, Urine Glucose (UA) Negative, Urine Ketones Trace, Urine Blood 3+, Urine Nitrate Negative, Urine Bilirubin Negative, Urine Urobilinogen 0.2, Ur Leukocyte Esterase Negative, Urine RBC 5-10, Urine WBC Occasional, Ur Squamous Epith Cells None, Ur Transition Epith Cell Occ, Amorphous Sediment 1+, Urine Bacteria Trace, Urine Mucus 3+ 09/11/21 05:56: WBC 5.5 D, RBC 3.91 L, Hgb 13.0, Hct 38.9, MCV 99.5 H, MCH 33.3 H, MCHC 33.4, RDW 15.1, Plt Count 262 D, MPV 7.6, Neut % (Auto) 89.8 H, Lymph % (Auto) 5.7 L, [place] % (Auto) 4.1, Eos % (Auto) 0.0 L, Baso % (Auto) 0.3, Neut # (Auto) 5.0, Lymph # (Auto) 0.3 L, [place] # (Auto) 0.2, Eos # (Auto) 0.0, Baso # (Auto) 0.0, Total Counted 100, Neutrophils % (Manual) 84 H, Lymphocytes % (Manual) 13, Monocytes % (Manual) 3, Platelet Estimate Normal, RBC Morphology Normal 09/11/21 05:56: Sodium 136, Potassium 3.9 D, Chloride 101, Carbon Dioxide 31 H, Anion Gap 7.9, BUN 26 H D, Creatinine 0.90 D, Estimated Creat Clear 59, Estimated GFR 64, Est GFR ( Amer) 78 D, Glucose 138 H, Calcium 8.6 I & O for Last 24 hours: Intake & Output 09/08/21 09/09/21 09/10/21 05/06/22 11:59 11:59 11:59 11:59 Intake Total 140 / 140 820 / 820 Output Total 1200 / 1200 Balance 140 / 140 -380 / -380 Weight 118 lb 8.011 oz 123 lb 6.4 oz - Constitutional no acute distress - *Routine HEENT Exam Head: Present: normocephalic Eye: Present: PERRL ENT: Present: mucous membranes moist - *Routine Neck Exam Present: supple. Absent: lymphadenopathy - *Routine Respiratory Exam Present: wheezes - *Routine Cardiovascular Exam Present: murmur - *Routine Abdominal Exam Present: soft, normoactive bowel sounds. Absent: tenderness - *Routine Extremities Exam Absent: cyanosis, clubbing, edema - *Routine Skin Exam Present: warm. Absent: rash - *Routine Neurological Exam Present: alert, oriented X3 Assessment and Plan (1) Myocardial infarction due to demand ischemia Status: Acute Category: Medical Code(s): I21.A1 - Myocardial infarction type 2 (2) COPD exacerbation Status: Acute Category: Medical Code(s): J44.1 - Chronic obstructive pulmonary disease with (acute) exacerbation (3) Elevated troponin Status: Acute Category: Medical Code(s): R77.8 - Other specified abnormalities of plasma proteins (4) Respiratory failure with hypoxia and hypercapnia Status: Acute Qualifiers: Chronicity: acute on chronic Qualified Code(s): J96.21 - Acute and chronic respiratory failure with hypoxia; J96.22 - Acute and chronic respiratory failure with hypercapnia Category: Medical Code(s): J96.91 - Respiratory failure, unspecified with hypoxia; J96.92 - Respiratory failure, unspecified with hypercapnia (5) Stenosis of aorta Status: Acute Category: Medical Code(s): Q25.3 - Supravalvular aortic stenosis (6) Tobacco use disorder Status: Acute Category: Medical Code(s): F17.200 - Nicotine dependence, unspecified, uncomplicated (7) Anxiety Status: Chronic Category: Medical Code(s): F41.9 - Anxiety disorder, unspecified - Assessment and plan all Dx Assessment and Plan for all problems:: rounded with dr newell all orders per dr alexandre pultommy consult cardiology consult continue care
--- NOTE | 2021-09-11 10:28 | HMH.OTEV ---
OT Inpatient Evaluation Rehab OT IP Evaluation Start: 09/11/21 09:21 Freq: ONCE Status: Complete Protocol: [facility] 09[facility]11/21 10[facility]23 [facility] (Rec: 09/11/21 10:28 [facility] [id number]) Rehab OT IP Assessment Subjective History Pt oriented x 3 on arrival. Pt agreeable to engage in therapy evaluation. Pt was admitted via ED on 09/09/21 due to COPD exacerbation. Prior to being in the hospital, pt lived at home alone. Pt was independent with all ADLs and IADLs. Pt did not use any type of AE during daily activities. The following information was copied from history and physical report: 61-year-old female patient presented to the [facility] emergency department via EMS after being found at home with altered mental status. Family reports not hearing from patient yesterday went to her house last night and she was found unresponsive on floor. She does have a history of COPD and is on home oxygen with nighttime BiPAP. All history was obtained from EMS and her daughter, daughter reports patient does not use drugs or alcohol. This morning patient is on BiPAP is minimal and only responsive and does not follow commands. Subjective I can do what I need to do. Pt sitting on bsc on arrival. Pt had BM. Pt stood from bsc with sba. Pt engaged in toileting hygiene with sba. Pt then transferred from bsc to bed with sba. Pt completed bed mobility and went from sitting to supine with sba. Pt was left with call kraft and all other needs in reach. Objective Patient Orientation
--- NOTE | 2021-09-11 11:08 | HMH.PTEV ---
Physical Therapy Evaluation Rehab PT IP Evaluation Start: 09/11/21 09:21 Freq: ONCE Status: Active Protocol: Document 09/11/21 11:04 PHORAYLA (Rec: 09/11/21 11:07 PHORNE [id number]) Subjective/History History History 61 yowf adm to [facility] with acute respiratory failure. She reports she lives alone, 2-3 steps to enter the home and was independent with all mobility without AD prior to adm. Subjective Subjective Pt reports, I feel bad all over, but she does agree to limited mobility. Rehab PT IP Eval Objective Appearance Patient Behavior Appropriate Patient Orientation Person,Place,Time Difficulty following instructions none Speech Pattern Clear Ambulation Patient Able to Ambulate Yes Ambulation Observation IP General Gait Pattern Observation Wide Based Gait,Shuffling Step Ambulation Distance (feet) 3 Ambulation Assistive Device None Ambulation Ability Supervision/Stand by Balance Ability to Arise Able, uses arms to help Sitting Balance Steady, safe Standing Balance Steady, wide stance Dynamic Sitting Balance Ability Good Dynamic Standing Balance Ability Fair Transfers Bed Transfer Ability Supervision/Stand by Chair Transfer Ability Supervision/Stand by Sit to Stand Bed Transfer Ability Supervision/Stand by Sit to Stand Chair Transfer Ability Supervision/Stand by Rehab PT IP prob,goals,plan Problems Date of Evaluation: 09/11/21 PT IP Problems Bed Mobility,Transfers,Gait Rehab Potential Rehab Potential Good Plan PT Intervention Plan Bed Mobility,Transfers,Gait, Self care,Therapeutic Exercise PT Plan Frequency BID Duration LOS Discharge Goals Bed Transfer Ability Independent Sit to Stand Chair Transfer Ability Independent Ambulation Assistive Device None Ambulation Distance (feet) 30 Discharge Plan PT Discharge Plan Pt is appropriate to return home once medically stable. Family present and report they will be able to assist with her care when she returns home . G -code Required No Eval Complexity Eval Charge Codes 77101 - Moderate Complexity PHYSICIAN CERTIFICATION: I certify the specified therapy services
--- NOTE | 2021-09-11 16:56 | PC.NURSE ---
Patient waxes and wanes with confusion. Patient much more alert today than previous with no complaints of pain but has some complaints of anxiousness during the day. Scheduled oxycodone and gabapentin given. Patient complained of some nausea during the day, able to keep down chicken broth. VS stable and patient on 3LNC with occasional use of bipap when feeling sob for a couple of minutes.
[2021-09-12] VITALS (14 sets, daily range): BP systolic 105–163; BP diastolic 54–74; PULSE 58–76; RESP 16–20; TEMP 36.7–36.9; O2SAT 95–100; BMI 19.3
--- NOTE | 2021-09-12 04:00 | PC.NURSE ---
PT AWAKE MOST OF NIGHT, COMPLAINED OF SOA RESPIRATORY AWARE AND INCREASED 02 TO 4L PNC DUE TO SATS 89% ON 3L, SATS HAVE BEEN 96-98% ON 4L BUT PT STILL C/O SOA AND REQUESTED TO BE PUT BACK ON BIPAP, NEBULIZERS GIVEN 1 HOUR EARLY DUE TO PT REQUEST, PT A&O, VSS, LUNG SOUNDS DIMINISHED, PRODUCTIVE COUGH AT TIMES. PT AND DAUGHTER REQUESTED TO HOLD CLONAZEPAM AND ASKED IF DOSE COULD BE DECREASED OR CHANGED, WILL PASS ON TO DAY SHIFT NURSE. NO OTHER ISSUES NOTED.
--- NOTE | 2021-09-12 07:12 | PC.NURSE ---
LAB CAME OUT AND STATED PT IS UP GOING TO BATHROOM, WHEN WALKED IN ROOM PT WAS UP PULLING IV LINES AND O2 TUBING CARE HOME IN THE BATHROOM, DAUGHTER WAS ASLEEP IN CHAIR, IV WAS UNHOOKED TO PREVENT FROM PULLING OUT, AND PT IMMEDIATELY ENTERED BATHROOM AND DID NOT WAIT ON NURSE TO HELP HER, WHEN PATIENT TURNED AROUND IN BATHROOM SHE FELL BACKWARD ON HER BOTTOM, PT WAS EXAMINED AFTERWARD AND PT DENIES ANY PAIN, AND STATES IM FINE , PT DID NOT HIT HEAD, PT LANDED ON BOTTOM, [employer] NOTIFIED, CHARGE NURSE NOTIFIED, DR PUCKETT NOTIFIED AND STATED HE WILL BE UP FROM ER IN A BIT TO EXAMINE HER, WILL CONTINUE TO MONITOR.
[2021-09-12 07:43] LABS: Basophils % 0.7 % (0.1-2.0); Eosinophils % 0.6 % (0.1-12.0); Hematocrit 39.4 % (37.0-47.0); Hemoglobin 13.1 g/dL (12.2-16.2); Lymphocytes # 0.7 K/mm3 (0.7-4.5); Lymphocytes % 13.8 % (10-50); Mean Corpuscular HGB Conc 33.3 g/dL (31.8-35.4); Mean Corpuscular Hemoglobin 33.4 pg (27.0-31.2); Mean Corpuscular Volume 100.5 fl (81-99); Mean Platelet Volume 7.6 fl (7.4-10.4); Monocytes # 0.4 K/mm3 (0.1-1.0); Monocytes % 7.5 % (1.7-9.3); Neutrophils # 4.2 K/mm3 (1.8-7.8); Neutrophils % 77.4 % (37.0-80.0); Platelet Count 294 K/mm3 (142-424); Red Blood Count 3.92 M/mm3 (4.20-5.40); Red Cell Distribution Width 15.5 % (11.5-17.5); White Blood Count 5.4 K/mm3 (4.8-10.8)
[2021-09-12 07:48] LABS: Anion Gap 5.5 mEq/L (5-15); Blood Urea Nitrogen 22 mg/dl (7-17); Calcium 8.7 mg/dl (8.4-10.2); Carbon Dioxide 33 mmol/L (22.0-30.0); Chloride 101 mmol/L (98-107); Creatinine Clearance Estimated 58 mL/min (50-200); Estimated Glomerular Filt Rate 64 ml/min (>60); GFR (African American) 78 ML/MIN (>60); Glucose 113 mg/dl (74-100); Potassium 3.5 mmoL/L (3.5-5.1); Sodium 136 mmol/L (136-145)
--- NOTE | 2021-09-12 09:48 | P.PN_ITS ---
Internal Medicine - PN: Subj *Date: 09/13/21 *Time: 08:32 Interval history: doing better - labs stable - still weak Exam Vital signs and Labs for Last 24 Hours: Temp Pulse Resp BP Pulse Ox 98.3 F 64 16 163/62 H 98 09/12/21 07:52 09/12/21 09:33 09/12/21 07:52 09/12/21 07:52 09/12/21 09:33 Laboratory Results - last 24 hr 09/12/21 07:09: WBC 5.4, RBC 3.92 L, Hgb 13.1, Hct 39.4, MCV 100.5 H, MCH 33.4 H , MCHC 33.3, RDW 15.5, Plt Count 294, MPV 7.6, Neut % (Auto) 77.4, Lymph % (Auto) 13.8, [place] % (Auto) 7.5, Eos % (Auto) 0.6, Baso % (Auto) 0.7, Neut # (Auto) 4.2, Lymph # (Auto) 0.7, [place] # (Auto) 0.4, Eos # (Auto) 0.0, Baso # (Auto) 0.0 09/12/21 07:09: Sodium 136, Potassium 3.5, Chloride 101, Carbon Dioxide 33 H, Anion Gap 5.5, BUN 22 H, Creatinine 0.90, Estimated Creat Clear 58, Estimated GFR 64, Est GFR ( Amer) 78, Glucose 113 H, Calcium 8.7 I & O for Last 24 hours: Intake & Output 09/09/21 09/10/21 09/11/21 09/12/21 11:59 11:59 11:59 11:59 Intake Total 140 / 140 820 / 820 878 / 878 Output Total 1200 / 1200 400 / 400 Balance 140 / 140 -380 / -380 478 / 478 Weight 118 lb 8.011 oz 123 lb 6.4 oz 120 lb 1.6 oz Microbiology Reports for the Last 24 Hours: Microbiology 09/11/21 23:28 Sputum - Expectorated Sputum Gram Stain - Final 09/11/21 23:28 Sputum - Expectorated Sputum Sputum Culture - Final 09/09/21 16:28 Blood Blood Culture - Preliminary NO GROWTH AFTER 48 HOURS 09/09/21 16:28 Blood Blood Culture - Preliminary NO GROWTH AFTER 48 HOURS - Constitutional no acute distress - *Routine HEENT Exam Head: Present: normocephalic Eye: Present: EOMI, PERRL ENT: Present: mucous membranes dry - *Routine Neck Exam Present: JVD - *Routine Respiratory Exam Present: decreased breath sounds - *Routine Cardiovascular Exam Present: RRR - *Routine Abdominal Exam Present: soft - *Routine Extremities Exam Present: pulses intact - *Routine Skin Exam Present: intact - *Routine Neurological Exam Present: alert, CN II-XII intact - Routine Psychiatric Exam Present: normal affect
[2021-09-13] VITALS (13 sets, daily range): BP systolic 108–167; BP diastolic 55–89; PULSE 50–77; RESP 17–20; TEMP 36.8–36.9; O2SAT 89–100; BMI 19.1
[2021-09-13 07:45] LABS: Basophils % 0.3 % (0.1-2.0); Blood Urea Nitrogen 20 mg/dl (7-17); Calcium 8.3 mg/dl (8.4-10.2); Carbon Dioxide 35 mmol/L (22.0-30.0); Chloride 101 mmol/L (98-107); Creatinine Clearance Estimated 57 mL/min (50-200); Eosinophils % 0.5 % (0.1-12.0); Estimated Glomerular Filt Rate 64 ml/min (>60); GFR (African American) 78 ML/MIN (>60); Glucose 97 mg/dl (74-100); Hematocrit 38.8 % (37.0-47.0); Hemoglobin 12.7 g/dL (12.2-16.2); Lymphocytes # 0.9 K/mm3 (0.7-4.5); Lymphocytes % 18.9 % (10-50); Mean Corpuscular HGB Conc 32.7 g/dL (31.8-35.4); Mean Corpuscular Hemoglobin 33.5 pg (27.0-31.2); Mean Corpuscular Volume 102.5 fl (81-99); Mean Platelet Volume 7.5 fl (7.4-10.4); Monocytes # 0.4 K/mm3 (0.1-1.0); Monocytes % 7.6 % (1.7-9.3); Neutrophils # 3.5 K/mm3 (1.8-7.8); Neutrophils % 72.7 % (37.0-80.0); Platelet Count 266 K/mm3 (142-424); Red Blood Count 3.78 M/mm3 (4.20-5.40); Red Cell Distribution Width 15.4 % (11.5-17.5); Sodium 138 mmol/L (136-145); White Blood Count 4.7 K/mm3 (4.8-10.8)
--- NOTE | 2021-09-13 08:46 | HMH.ACPN2 ---
Internal Medicine - PN: Subj *Date: 09/13/21 *Time: 08:46 Interval history: still weak fell last night 02 at 2 lpm elev bp hypokalemic this am echo=55 percent ejection fraction Exam Vital signs and Labs for Last 24 Hours: Temp Pulse Resp BP Pulse Ox 98.4 F 70 18 167/81 H 94 L 09/13/21 07:37 09/13/21 08:00 09/13/21 07:37 09/13/21 07:37 09/13/21 07:37 Laboratory Results - last 24 hr 09/13/21 07:19: WBC 4.7 L, RBC 3.78 L, Hgb 12.7, Hct 38.8, MCV 102.5 H, MCH 33.5 H, MCHC 32.7, RDW 15.4, Plt Count 266, MPV 7.5, Neut % (Auto) 72.7, Lymph % (Auto) 18.9, [place] % (Auto) 7.6, Eos % (Auto) 0.5, Baso % (Auto) 0.3, Neut # (Auto) 3.5, Lymph # (Auto) 0.9, [place] # (Auto) 0.4, Eos # (Auto) 0.0, Baso # (Auto) 0.0 09/13/21 07:19: Sodium 138, Potassium 3.0 L, Chloride 101, Carbon Dioxide 35 H, Anion Gap 5.0, BUN 20 H, Creatinine 0.90, Estimated Creat Clear 57, Estimated GFR 64, Est GFR ( Amer) 78, Glucose 97, Calcium 8.3 L I & O for Last 24 hours: Intake & Output 09/10/21 09/11/21 09/12/21 09/13/21 23:59 23:59 23:59 23:59 Intake Total 140 / 140 998 / 998 1300 / 1300 700 / 700 Output Total 700 / 700 900 / 900 300 / 800 500 / 500 Balance -560 / -560 98 / 98 1000 / 500 200 / 200 Weight 118 lb 7.975 oz 123 lb 6.4 oz 120 lb 1.6 oz 119 lb 0.794 oz - Constitutional no acute distress, chronically ill appearing - *Routine HEENT Exam Head: Present: normocephalic Eye: Present: EOMI, PERRL ENT: Present: mucous membranes moist - *Routine Neck Exam Present: supple. Absent: lymphadenopathy - *Routine Respiratory Exam Present: distant breath sounds. Absent: accessory muscle use - *Routine Cardiovascular Exam Present: RRR - *Routine Abdominal Exam Present: soft, normoactive bowel sounds. Absent: tenderness - *Routine Extremities Exam Absent: cyanosis, clubbing, edema - *Routine Neurological Exam Present: alert, oriented X3, vision grossly intact, hearing grossly intact, normal speech. Absent: altered mental status Assessment and Plan (1) COPD exacerbation Status: Acute Category: Medical Code(s): J44.1 - Chronic obstructive pulmonary disease with (acute) exacerbation (2) Respiratory failure with hypoxia and hypercapnia Status: Acute Qualifiers: Chronicity: acute on chronic Qualified Code(s): J96.21 - Acute and chronic respiratory failure with hypoxia; J96.22 - Acute and chronic respiratory failure with hypercapnia Category: Medical Code(s): J96.91 - Respiratory failure, unspecified with hypoxia; J96.92 - Respiratory failure, unspecified with hypercapnia (3) Tobacco use disorder Status: Acute Category: Medical Code(s): F17.200 - Nicotine dependence, unspecified, uncomplicated (4) Anxiety Status: Chronic Category: Medical Code(s): F41.9 - Anxiety disorder, unspecified (5) CAD (coronary artery disease) Status: Chronic Qualifiers: Coronary Disease-Associated Artery/Lesion type: [place] artery [place] vs. transplanted heart: [place] heart Associated angina: without angina Qualified Code(s): I25.10 - Atherosclerotic heart disease of [place] coronary artery without angina pectoris Category: Medical Code(s): I25.10 - Atherosclerotic heart disease of [place] coronary artery without angina pectoris (6) Emphysema of lung Status: Chronic Qualifiers: Emphysema type: unspecified Qualified Code(s): J43.9 - Emphysema, unspecified Category: Medical Code(s): J43.9 - Emphysema, unspecified (7) Dyspnea Status: Acute Qualifiers: Dyspnea type: dyspnea on exertion Qualified Code(s): R06.09 - Other forms of dyspnea Category: Medical Code(s): R06.00 - Dyspnea, unspecified (8) COPD (chronic obstructive pulmonary disease) Status: Chronic Qualifiers: COPD type: unspecified COPD Qualified Code(s): J44.9 - Chronic obstructive pulmonary disease, unspecified Category: Medical Code(s): J44.9 - Chronic obstructive pulmonar
--- NOTE | 2021-09-13 08:55 | XR_ITS ---
PROCEDURE INFORMATION: Exam: XR Chest Exam date and time: 09/13/2021 9:45 AM Age: 61 years old Clinical indication: Shortness of breath; Additional info: Copd, SOB TECHNIQUE: Imaging protocol: XR of the chest. Views: 1 view. COMPARISON: CR XR CHEST PORTABLE 09/09/2021 1:41 PM FINDINGS: Lungs: Unremarkable. No consolidation. Pleural spaces: Unremarkable. No pleural effusion. No pneumothorax. Heart/Mediastinum: Unremarkable. No cardiomegaly. Bones/joints: Unremarkable. IMPRESSION: No acute findings.
--- NOTE | 2021-09-13 09:05 | HMH.ACPN2 ---
Internal Medicine - PN: Subj *Date: 09/13/21 *Time: 09:05 Exam Vital signs and Labs for Last 24 Hours: Temp Pulse Resp BP Pulse Ox 98.4 F 70 18 167/81 H 94 L 09/13/21 07:37 09/13/21 08:00 09/13/21 07:37 09/13/21 07:37 09/13/21 07:37 Laboratory Results - last 24 hr 09/13/21 07:19: WBC 4.7 L, RBC 3.78 L, Hgb 12.7, Hct 38.8, MCV 102.5 H, MCH 33.5 H, MCHC 32.7, RDW 15.4, Plt Count 266, MPV 7.5, Neut % (Auto) 72.7, Lymph % (Auto) 18.9, [place] % (Auto) 7.6, Eos % (Auto) 0.5, Baso % (Auto) 0.3, Neut # (Auto) 3.5, Lymph # (Auto) 0.9, [place] # (Auto) 0.4, Eos # (Auto) 0.0, Baso # (Auto) 0.0 09/13/21 07:19: Sodium 138, Potassium 3.0 L, Chloride 101, Carbon Dioxide 35 H, Anion Gap 5.0, BUN 20 H, Creatinine 0.90, Estimated Creat Clear 57, Estimated GFR 64, Est GFR ( Amer) 78, Glucose 97, Calcium 8.3 L I & O for Last 24 hours: Intake & Output 09/10/21 09/11/21 09/12/21 09/13/21 23:59 23:59 23:59 23:59 Intake Total 140 / 140 998 / 998 1300 / 1300 700 / 700 Output Total 700 / 700 900 / 900 300 / 800 500 / 500 Balance -560 / -560 98 / 98 1000 / 500 200 / 200 Weight 53.75 kg 55.973 kg 54.476 kg 54 kg Assessment and Plan (1) COPD exacerbation Status: Acute Category: Medical Code(s): J44.1 - Chronic obstructive pulmonary disease with (acute) exacerbation (2) Respiratory failure with hypoxia and hypercapnia Status: Acute Qualifiers: Chronicity: acute on chronic Qualified Code(s): J96.21 - Acute and chronic respiratory failure with hypoxia; J96.22 - Acute and chronic respiratory failure with hypercapnia Category: Medical Code(s): J96.91 - Respiratory failure, unspecified with hypoxia; J96.92 - Respiratory failure, unspecified with hypercapnia (3) Tobacco use disorder Status: Acute Category: Medical Code(s): F17.200 - Nicotine dependence, unspecified, uncomplicated (4) Anxiety Status: Chronic Category: Medical Code(s): F41.9 - Anxiety disorder, unspecified (5) CAD (coronary artery disease) Status: Chronic Qualifiers: Coronary Disease-Associated Artery/Lesion type: [place] artery [place] vs. transplanted heart: [place] heart Associated angina: without angina Qualified Code(s): I25.10 - Atherosclerotic heart disease of [place] coronary artery without angina pectoris Category: Medical Code(s): I25.10 - Atherosclerotic heart disease of [place] coronary artery without angina pectoris (6) Emphysema of lung Status: Chronic Qualifiers: Emphysema type: unspecified Qualified Code(s): J43.9 - Emphysema, unspecified Category: Medical Code(s): J43.9 - Emphysema, unspecified (7) Dyspnea Status: Acute Qualifiers: Dyspnea type: dyspnea on exertion Qualified Code(s): R06.09 - Other forms of dyspnea Category: Medical Code(s): R06.00 - Dyspnea, unspecified (8) COPD (chronic obstructive pulmonary disease) Status: Chronic Qualifiers: COPD type: unspecified COPD Qualified Code(s): J44.9 - Chronic obstructive pulmonary disease, unspecified Category: Medical Code(s): J44.9 - Chronic obstructive pulmonary disease, unspecified (9) Facet hypertrophy of lumbar region Status: Chronic Category: Medical Code(s): M47.816 - Spondylosis without myelopathy or radiculopathy, lumbar region (10) Myocardial infarction due to demand ischemia Status: Acute Category: Medical Code(s): I21.A1 - Myocardial infarction type 2 The patient's infection will respond to the chosen ABx?: Yes (REPEAT SPUTUM ORDERED, ORIGINAL DID NOT MEET CRITERIA, BLOOD CULTURE NEG.) Is the patient receiving the right drug, dose, and route?: Yes Could a more targeted ABx be ordered?: No
--- NOTE | 2021-09-13 15:55 | PC.NURSE ---
AOX4, ABLE TO MAKE NEEDS KNOWN TO STAFF. SHE CONTINUES ON 2LNC FOR O2 SUPPORT. HAS BEEN SITTING UP ON THE SIDE OF BED WILL FAMILY FOR MOST OF SHIFT AND HAS SPENT TIME IN THE CHAIR. PRESSURE ALARMS AND BED ALARMS HAVE BEEN IN USE FOR DURATION OF SHIFT.
[2021-09-14] VITALS: BP 160/70; PULSE 67; PULSE 70; RESP 19; TEMP 36.4; O2SAT 96
[2021-09-14 04:00] VITALS: BP 136/73; PULSE 60; PULSE 69; RESP 18; TEMP 36.7; O2SAT 98
[2021-09-14 05:00] VITALS: BMI 19.1
[2021-09-14 05:42] VITALS: TEMP 37
[2021-09-14 06:20] VITALS: PULSE 82; PULSE 87; O2SAT 97
[2021-09-14 06:57] LABS: Basophils % 0.7 % (0.1-2.0); Eosinophils # 0.1 K/mm3 (0.0-0.4); Eosinophils % 1.1 % (0.1-12.0); Hematocrit 39.3 % (37.0-47.0); Hemoglobin 12.6 g/dL (12.2-16.2); Lymphocytes # 1.2 K/mm3 (0.7-4.5); Lymphocytes % 25.8 % (10-50); Mean Corpuscular HGB Conc 32.2 g/dL (31.8-35.4); Mean Corpuscular Hemoglobin 32.6 pg (27.0-31.2); Mean Corpuscular Volume 101.4 fl (81-99); Mean Platelet Volume 7.5 fl (7.4-10.4); Monocytes # 0.4 K/mm3 (0.1-1.0); Neutrophils # 3.1 K/mm3 (1.8-7.8); Neutrophils % 64.5 % (37.0-80.0); Platelet Count 307 K/mm3 (142-424); Red Blood Count 3.87 M/mm3 (4.20-5.40); Red Cell Distribution Width 15.3 % (11.5-17.5); White Blood Count 4.7 K/mm3 (4.8-10.8)
[2021-09-14 06:58] LABS: Anion Gap 4.3 mEq/L (5-15); Blood Urea Nitrogen 13 mg/dl (7-17); Calcium 7.9 mg/dl (8.4-10.2); Carbon Dioxide 35 mmol/L (22.0-30.0); Chloride 102 mmol/L (98-107); Creatinine Clearance Estimated 74 mL/min (50-200); Estimated Glomerular Filt Rate 86 ml/min (>60); GFR (African American) 104 ML/MIN (>60); Glucose 93 mg/dl (74-100); Potassium 3.3 mmoL/L (3.5-5.1); Sodium 138 mmol/L (136-145)
[2021-09-14 08:00] VITALS: BP 146/82; PULSE 73; PULSE 90; RESP 18; TEMP 36.7; O2SAT 95
--- NOTE | 2021-09-14 08:58 | HMH.DCSUM ---
General - General Admission date:: 09/09/21 Discharge date: 09/14/21 HPI HPI: 61-year-old female patient presented to the [facility] emergency department via EMS after being found at home with altered mental status. Family reports not hearing from patient yesterday went to her house last night and she was found unresponsive on floor. She does have a history of COPD and is on home oxygen with nighttime BiPAP. All history was obtained from EMS and her daughter, daughter reports patient does not use drugs or alcohol. This morning patient is on BiPAP is minimal and only responsive and does not follow commands. Hospital Course Hospital Course: Abnormal Lab Results 09/14/21 06:08: WBC 4.7 L, RBC 3.87 L, MCV 101.4 H, MCH 32.6 H 09/14/21 06:08: Potassium 3.3 L, Carbon Dioxide 35 H, Anion Gap 4.3 L, Calcium 7.9 L Microbiology 09/11/21 23:28 Sputum - Expectorated Sputum Gram Stain - Final 09/11/21 23:28 Sputum - Expectorated Sputum Sputum Culture - Final 09/09/21 16:28 Blood Blood Culture - Preliminary NO GROWTH AFTER 48 HOURS 09/09/21 16:28 Blood Blood Culture - Preliminary NO GROWTH AFTER 48 HOURS pulmonology consult:Assessment and Plan for all problems:: #Acute on chronic hypoxic hypercarbic respiratory failure: #COPD exacerbation: #Community-acquired pneumonia: Current smoker greater than [id number] smoking history. Found unresponsive at home was. Admission ABG showed hypercarbia and was initiated on BiPAP. No evidence of leukocytosis. Elevated troponin @ 0.99 with delta increase after and BNP on admission. ABG on admission showed hypercarbic respiratory failure PCO2 7.31 and pH of 7.22. Initiating DuoNebs 4 times daily, levofloxacin and methylprednisolone 80 mg every 8 hours. Blood cultures pending. No sputum cultures. Chest x-ray upon admission showed bilateral lower lobe minimal airspace disease along with evidence of vascular congestion. Concerning for right upper lobe lung nodule. Prior history of staph and haemophilus influenza from June 2017, Staph aureus sensitive to clindamycin Interval update: Patient respiratory status significantly improved from yesterday with improving auscultation still having mild expiratory wheeze. Weaned to nasal cannula. Plan: -Follow-up with sputum culture, sputum induction. -Change antibiotic to clindamycin 600 mg 3 times daily along with azithromycin, can be weaned to oral antibiotics to complete a total of 5-day course upon discharge. -Continue DuoNebs every 4 along with budesonide every 12 schedule -Wean steroids to prednisone 40 mg daily for 5 days #Lung nodules: Patient CTA from June showed right upper lobe and lower lobe calcified lung nodules likely benign. Will monitor clinically. #Thank you for involving pulmonary in this patient care. We will follow the patient in pulmonary clinic in 4 to 6 weeks with a full PFT and a 6-minute walk testing. Severe COPD with chronic oxygen and BiPAP use A. Patient found unresponsive 09/09/2021 with ER evaluation noting hypoxic hypercapnic respiratory failure 2. Remote history of [place] A. History of normal stress test 2018 B. Echocardiogram 09/09/2021, 1. Mild biatrial enlargement, normal left ventricular size, mild concentric left ventricular hypertrophy, estimated ejection fraction 55% with no regional wall motion abnormality, Doppler evidence of impaired LV relaxation. 2. Mildly enlarged right ventricle with normal contractility. 3. Trace mitral and tricuspid regurgitation. 4. No significant pericardial effusion noted. 5. Inferior vena cava is poorly visualized. 3. Chronic opioid use 4. Hypertension 5. Hyperlipidemia 6. Anxiety/depression cardiology consult: Assessment and Plan for all problems:: 1. Hypoxic hypercapnic respiratory failure. Defer to pulmonary. 2. Elevated troponins felt secondary to
--- NOTE | 2021-09-14 09:02 | PC.NURSE ---
D/t pt's frequent falls this weekend-fuzzy socks removed off feet and non-skid socks applied. Reiterated importance of calling out for help and to wait for assistance. Pt verbalized understanding. Will monitor.
--- NOTE | 2021-09-14 09:16 | HMH.PULMPN ---
Internal Medicine - PN: Subj *Date: 09/14/21 *Time: 10:54 Interval history: No acute respiratory vents overnight. Patient admits continued improvement in her symptoms. Exam - Constitutional Constitutional:: Present: no acute distress, comfortable - HENMT Exam HENMT: Present: normocephalic - Eye Exam Eyes:: Present: normal appearance both eyes and related structures - Neck Exam Neck:: Present: normal visual inspection - Respiratory Exam Respiratory:: Present: able to speak in complete sentences, no respiratory distress. Absent: wheezing - Cardiovascular Exam Cardiac:: Present: S1, S2 - GI Exam GI:: Present: soft - Skin Exam Skin: Present: warm, no rash - Neurological Exam Neurological: Present: alert, awake - Extremities Exam Extremities: Present: no cyanosis, no clubbing, no edema - Psychiatric Exam Psychiatric: Present: normal affect Assessment and Plan (1) COPD exacerbation Status: Acute Category: Medical Code(s): J44.1 - Chronic obstructive pulmonary disease with (acute) exacerbation (2) Respiratory failure with hypoxia and hypercapnia Status: Acute Qualifiers: Chronicity: acute on chronic Qualified Code(s): J96.21 - Acute and chronic respiratory failure with hypoxia; J96.22 - Acute and chronic respiratory failure with hypercapnia Category: Medical Code(s): J96.91 - Respiratory failure, unspecified with hypoxia; J96.92 - Respiratory failure, unspecified with hypercapnia (3) Tobacco use disorder Status: Acute Category: Medical Code(s): F17.200 - Nicotine dependence, unspecified, uncomplicated (4) Anxiety Status: Chronic Category: Medical Code(s): F41.9 - Anxiety disorder, unspecified (5) CAD (coronary artery disease) Status: Chronic Qualifiers: Coronary Disease-Associated Artery/Lesion type: [place] artery [place] vs. transplanted heart: [place] heart Associated angina: without angina Qualified Code(s): I25.10 - Atherosclerotic heart disease of [place] coronary artery without angina pectoris Category: Medical Code(s): I25.10 - Atherosclerotic heart disease of [place] coronary artery without angina pectoris (6) Emphysema of lung Status: Chronic Qualifiers: Emphysema type: unspecified Qualified Code(s): J43.9 - Emphysema, unspecified Category: Medical Code(s): J43.9 - Emphysema, unspecified (7) Dyspnea Status: Acute Qualifiers: Dyspnea type: dyspnea on exertion Qualified Code(s): R06.00 - Dyspnea, unspecified Category: Medical Code(s): R06.00 - Dyspnea, unspecified (8) COPD (chronic obstructive pulmonary disease) Status: Chronic Qualifiers: COPD type: unspecified COPD Qualified Code(s): J44.9 - Chronic obstructive pulmonary disease, unspecified Category: Medical Code(s): J44.9 - Chronic obstructive pulmonary disease, unspecified (9) Facet hypertrophy of lumbar region Status: Chronic Category: Medical Code(s): M47.816 - Spondylosis without myelopathy or radiculopathy, lumbar region (10) Myocardial infarction due to demand ischemia Status: Acute Category: Medical Code(s): I21.A1 - Myocardial infarction type 2 - Assessment and plan all Dx Assessment and Plan for all problems:: #Acute on chronic hypoxic hypercarbic respiratory failure: #COPD exacerbation: #Community-acquired pneumonia: Current smoker greater than [id number] smoking history. Found unresponsive at home was. Admission ABG showed hypercarbia and was initiated on BiPAP. No evidence of leukocytosis. Elevated troponin @ 0.99 with delta increase after and BNP on admission. ABG on admission showed hypercarbic respiratory failure PCO2 7.31 and pH of 7.22. Initiating DuoNebs 4 times daily, levofloxacin and methylprednisolone 80 mg every 8 hours. Blood cultures pending. No sputum cultures. Chest x-ray upon admission showed bilateral lower lobe minimal airspace disease along with evidence of vascular congestion. Concern
[2021-09-14 10:00] VITALS: PULSE 66; PULSE 69; O2SAT 90
--- NOTE | 2021-09-14 10:10 | PC.NURSE ---
Discharge instructions provided, all questions answered. PIV removed. Care Management notified of need for portable o2 tank, pt already goes through [facility]. Pt's ride was called, should be here between 30 min-1 hour.
--- NOTE | 2021-09-14 10:27 | CARE MANAGER ---
Patient requested rolling walker for home use. Patient chose [facility] and order and demograhics were faxed. They will deliver to [facility].
--- NOTE | 2021-09-14 10:50 | DIET.NUTRFU ---
RD saw patient prior to discharge to review high protein/high calorie food choices also recommended 6 small meals to help meet nutritional needs while she quits smoking. Provided handouts, she seemed receptive
== END 2021-09-14 10:55 | disposition home or self-care (01) | DRG 189 ==
LOC: ER 14:42 → 2ND 15:39
PROVIDERS: Family Medicine; Nurse Practitioner Family; Admitting Provider Emergency Medicine; Emergency Provider Emergency Medicine; Visit Provider Emergency Medicine
DX: J96.21 Acute and chronic respiratory failure with hypoxia (principal); I21.A1 Myocardial infarction type 2; Q25.3 Supravalvular aortic stenosis; J43.9 Emphysema, unspecified; F17.210 Nicotine dependence, cigarettes, uncomplicated; M79.7 Fibromyalgia; I25.2 Old myocardial infarction; I10 Essential (primary) hypertension; E78.5 Hyperlipidemia, unspecified; I25.10 Atherosclerotic heart disease of native coronary artery without angina pectoris; J96.22 Acute and chronic respiratory failure with hypercapnia; F41.9 Anxiety disorder, unspecified; F32.A Depression, unspecified; Z20.822 Contact with and (suspected) exposure to COVID-19
CPT/HCPCS: 36415; 70450; 71045; 80048; 80053; 80305; 80329; 81001; 82803; 83605; 83880; 84484; 85007; 85025; 87040; 87070; 87205; 93005; 93306; 94640; 94660; 94761; 97116; 97162; 97166; 99285; C9803; J0456; J1956; J2405; U0003; U0005

== ENCOUNTER 2021-10-09 16:40 | Inpatient (IN) | payer MEDICAID, SELFPAY ==
[2021-10-09] VITALS (10 sets, daily range): BP systolic 101–156; BP diastolic 57–78; PULSE 54–65; RESP 16–32; TEMP 38.2; O2SAT 97–100; BMI 21.9; BMI 18.1
--- NOTE | 2021-10-09 16:52 | PC.NURSE ---
Respiratory called with ABG results, MD notified of results.
--- NOTE | 2021-10-09 16:53 | XR_ITS ---
PROCEDURE INFORMATION: Exam: XR Chest Exam date and time: 10/09/2021 4:55 PM Age: 61 years old Clinical indication: Shortness of breath; Additional info: SOA TECHNIQUE: Imaging protocol: XR of the chest. Views: 1 view. COMPARISON: CR XR CHEST PORTABLE 09/13/2021 9:45 AM FINDINGS: Lungs: Biapical emphysematous changes. Chronic interstitial lung markings at both lung bases. Surgical staple line and chronic linear scarring at the left lung apex. No acute airspace disease. Pleural spaces: Unremarkable. No pleural effusion. No pneumothorax. Heart/Mediastinum: Unremarkable. No cardiomegaly. Bones/joints: Unremarkable. IMPRESSION: 1. No acute findings. 2. Chronic changes.
--- NOTE | 2021-10-09 16:56 | PC.NURSE ---
notified RT ER wants pt placed on bipap pt moved to room 2
--- NOTE | 2021-10-09 17:01 | HMH.EDGENADL ---
ED Disposition Clinical Impression: Acute exacerbation of chronic obstructive airways disease, COVID-19 virus infection Respiratory failure with hypoxia and hypercapnia Qualifiers: Chronicity: acute on chronic Qualified Code(s): J96.21 - Acute and chronic respiratory failure with hypoxia Disposition: Admitted as Observation Condition on Discharge: Serious - Critical Care Critical Care Time: Yes Attestation: On 10/09/21, the high probability of a clinically significant, sudden or life threatening deterioration of the following system(s) required my full and direct attention, intervention and personal management. The time I documented below is in addition to time spent performing reported procedures but includes the following listed in this critical care notation. Total Critical Care Time: 30 Vital system(s) involved:: Respiratory Failure My critical care processes included: Assessment & monitoring of V/S, Initial and Re-exams, Data Review/Interpretation, Coordinating Care, Medication Orders and management, Documentation Medical Decision Making - Roberto Inquiry Pt receiving controlled substance: No Vital Signs: 10/09/21 16:41 10/09/21 17:31 10/09/21 18:00 Temperature 100.7 F H Temperature Source Rectal Pulse Rate 60 58 L Pulse Rate [Radial] 63 Respiratory Rate 32 H 20 18 Blood Pressure 121/64 101/57 L Blood Pressure [Right Arm] 156/78 H Blood Pressure Mean 83 71 Blood Pressure Mean [Right Arm] 104 Blood Pressure Position [Right Arm] Sitting 02 Sat by Pulse Oximetry 99 100 100 Oxygen Delivery Method Nasal Cannula Oxygen Flow Rate (LPM) 6 10/09/21 18:30 10/09/21 19:29 10/09/21 19:31 Temperature 100.7 F H Temperature Source Pulse Rate 58 L 54 L Pulse Rate [Radial] Respiratory Rate 18 18 Blood Pressure 111/61 129/70 Blood Pressure [Right Arm] Blood Pressure Mean 72 Blood Pressure Mean [Right Arm] Blood Pressure Position [Right Arm] 02 Sat by Pulse Oximetry 100 Oxygen Delivery Method BiPAP BiPAP Oxygen Flow Rate (LPM) - Lab Data Lab Results 10/09/21 16:50: WBC 8.1, RBC 4.33, Hgb 14.2, Hct 45.9, MCV 106.2 H, MCH 32.7 H, MCHC 30.9 L, RDW 15.5, Plt Count 324, MPV 7.5, Neut % (Auto) 77.5, Lymph % (Auto) 10.9, [place] % (Auto) 7.8, Eos % (Auto) 1.6, Baso % (Auto) 2.2 H, Neut # (Auto) 6.3, Lymph # (Auto) 0.9, [place] # (Auto) 0.6, Eos # (Auto) 0.1, Baso # (Auto) 0.2 10/09/21 16:50: Sodium 137, Potassium 3.5, Chloride 97 L, Carbon Dioxide 36 H, Anion Gap 7.5, BUN 25 H, Creatinine 1.00, Estimated Creat Clear 52, Estimated GFR 57 L, Est GFR ( Amer) 69, Glucose 153 H, Calcium 9.3, Total Bilirubin 0.4, AST 32, ALT 22, Alkaline Phosphatase 74, Troponin I < 0.01, Total Protein 7.0, Albumin 4.3, Globulin 2.7, Albumin/Globulin Ratio 1.6 10/09/21 16:50: Lactate 0.9 10/09/21 16:52: Specimen Source Right radial, O2 % 6lpm, ABG pH 7.28 L, ABG pCO2 68.5 H, ABG pO2 181.8 H, ABG HCO3 31.5 H, ABG Total CO2 33.6 H, ABG O2 Saturation 99, ABG Base Excess 4.7 H, Dg Test Patient unable 10/09/21 17:00: SARS-CoV-2 (PCR) Detected A, Influenza A Untype (PCR) Not detected, Influenza Type B (PCR) Not detected Result diagrams: 10/09/21 16:50 10/09/21 16:50 Orders (Tests/Meds): ED MEDICATIONS Generic Name Dose Route Start Last Admin Trade Name Freq PRN Reason Stop Dose Admin Albuterol/Ipratropium 3 ml 10/09/21 20:00 Ipratropium/Albuterol 3 Ml Neb IH 11/08/21 19:59 QIDRT GHAZAL Aspirin 81 mg 10/10/21 09:00 Aspirin Ec 81mg Tablet PO 11/09/21 08:59 DAILY GHAZAL Buspirone HCl 10 mg 10/09/21 21:00 Buspirone Hcl 10 Mg Tablet PO 11/08/21 20:59 BID [facility] Clopidogrel Bisulfate 75 mg 10/10/21 09:00 Clopidogrel 75mg Tab PO 11/09/21 08:59 DAILY GHAZAL Furosemide 20 mg 10/09/21 20:30 Furosemide 20mg Tablet PO 11/08/21 20:29 Q OTHER DAY GHAZAL Levofloxacin/Dextrose 500 mg in 100 mls @ 100 mls/hr 10/10/21 17:30 Levaquin 500mg/100ml Premix IV
[2021-10-09 17:08] LABS: Influenza A, PCR Not Detected (NotDetected); Influenza B, PCR Not Detected (NotDetected)
[2021-10-09 17:10] LABS: ABG Base Excess 4.7 mmol/L (-2.4-2.3); ABG HCO3 31.5 mmhg (22.0-26.0); ABG Oxygen Saturation 99 % (90-100); ABG PH 7.28 mmol/L (7.35-7.45); ABG PO2 181.8 mmhg (80-100); ABG TCO2 33.6 mmhg (23-27)
[2021-10-09 17:11] LABS: Allen's Test Patient Unable; Oxygen 6LPM %; Source Right Radial
[2021-10-09 17:16] LABS: ABG PCO2 68.5 mmhg (35.0-45.0)
[2021-10-09 17:18] LABS: Basophils # 0.2 K/mm3 (0-0.2); Basophils % 2.2 % (0.1-2.0); Eosinophils # 0.1 K/mm3 (0.0-0.4); Eosinophils % 1.6 % (0.1-12.0); Hematocrit 45.9 % (37.0-47.0); Hemoglobin 14.2 g/dL (12.2-16.2); Lymphocytes # 0.9 K/mm3 (0.7-4.5); Lymphocytes % 10.9 % (10-50); Mean Corpuscular HGB Conc 30.9 g/dL (31.8-35.4); Mean Corpuscular Hemoglobin 32.7 pg (27.0-31.2); Mean Corpuscular Volume 106.2 fl (81-99); Mean Platelet Volume 7.5 fl (7.4-10.4); Monocytes # 0.6 K/mm3 (0.1-1.0); Monocytes % 7.8 % (1.7-9.3); Neutrophils # 6.3 K/mm3 (1.8-7.8); Neutrophils % 77.5 % (37.0-80.0); Platelet Count 324 K/mm3 (142-424); Red Blood Count 4.33 M/mm3 (4.20-5.40); Red Cell Distribution Width 15.5 % (11.5-17.5); White Blood Count 8.1 K/mm3 (4.8-10.8)
[2021-10-09 17:19] LABS: Chloride 97 mmol/L (98-107); Potassium 3.5 mmoL/L (3.5-5.1); Sodium 137 mmol/L (136-145)
[2021-10-09 17:22] LABS: Alanine Aminotransferase 22 U/L (12-78); Albumin Level 4.3 g/dl (3.5-5.0); Albumin/Globulin Ratio 1.6 (1.1-1.8); Alkaline Phosphatase 74 U/L (38-126); Anion Gap 7.5 mEq/L (5-15); Aspartate Amino Transferase 32 U/L (14-36); Bilirubin,Total 0.4 mg/dl (0.2-1.3); Blood Urea Nitrogen 25 mg/dl (7-17); Carbon Dioxide 36 mmol/L (22.0-30.0); Creatinine Clearance Estimated 52 mL/min (50-200); Estimated Glomerular Filt Rate 57 ml/min (>60); GFR (African American) 69 ML/MIN (>60); Globulin 2.7 g/dL (1.3-3.2); Lactic Acid 0.9 mmol/L (0.7-2.1)
[2021-10-09 17:23] LABS: Calcium 9.3 mg/dl (8.4-10.2); Glucose 153 mg/dl (74-100)
--- NOTE | 2021-10-09 17:25 | PC.NURSE ---
pt daughter at BS
--- NOTE | 2021-10-09 17:33 | ECG_ITS ---
APPROVED REPORT Exam: Resting ECG HR:60 bpm ECG Measurements Heart Rate 60 AXES NC 176 P 78 QRSd 79 QRS 73 QT 360 T -70 QTc 362 Conclusion SINUS RHYTHM POSSIBLE RIGHT VENTRICULAR CONDUCTION DELAY [RSR (QR) IN V1/V2] SEPTAL MYOCARDIAL INFARCTION , PROBABLY OLD [40+ ms Q WAVE IN V1/V2] MODERATE T-WAVE ABNORMALITY, CONSIDER LATERAL ISCHEMIA [-0.1+ mV T-WAVE IN I/aVL/V5/V6] MODERATE T-WAVE ABNORMALITY, CONSIDER INFERIOR ISCHEMIA [-0.1+ mV T-WAVE IN II/aVF] ABNORMAL ECG UNCONFIRMED REPORT Electronically signed by : Tao Mcgowan MD 10/10/2021 17:24:40
--- NOTE | 2021-10-09 17:39 | PC.NURSE ---
notified melt house supervisor of admission
[2021-10-09 17:43] LABS: Troponin I < 0.01 ng/ml (0.00-0.034)
--- NOTE | 2021-10-09 18:05 | PC.NURSE ---
upon entering patient's room to administer antibiotics, daughter states she wants patient transferred. spoke with daughter regarding pt having a bed here. daughter states she would like for us to work on transferring her. notified and went to bedside to speak with patients daughter.
[2021-10-09 18:09] LABS: Coronavirus 19, PCR Detected (NotDetected)
--- NOTE | 2021-10-09 18:37 | PC.NURSE ---
spoke with and [facility] per daughter request and both stated they have no bed availability for days.
--- NOTE | 2021-10-09 18:40 | PC.NURSE ---
called [facility] call center. no beds @ 1828 called [facility] call transfer center possible bed. 183
--- NOTE | 2021-10-09 19:04 | PC.NURSE ---
PT'S DAUGHTER STATES IT'S OK FOR HER TO BE ADMITTED TO [facility] IF YOU CAN'T FIND A BED ANY PLACE ELSE
[2021-10-09 19:24] LABS: Microscopic, Urine URINE MICROSCOPIC (MICROSCOPIC)
--- NOTE | 2021-10-09 19:26 | PC.NURSE ---
REPORT CALLED TO FLOOR
--- NOTE | 2021-10-09 19:30 | PC.NURSE ---
RT at BS
[2021-10-09 19:52] LABS: ABG Base Excess 3.5 mmol/L (-2.4-2.3); ABG HCO3 29.7 mmhg (22.0-26.0); ABG Oxygen Saturation 99 % (90-100); ABG PH 7.31 mmol/L (7.35-7.45); ABG PO2 209.8 mmhg (80-100); ABG TCO2 31.6 mmhg (23-27); Oxygen 50 %; Pressure Support 10
[2021-10-09 19:53] LABS: Allen's Test Patient Unable; Source Left Radial
[2021-10-09 19:55] LABS: ABG PCO2 60.1 mmhg (35.0-45.0)
--- NOTE | 2021-10-09 19:57 | PC.NURSE ---
Addendum entered by Kami Worthington CNA 10/10/21 00:42: CORRECTION- PT ARRIVED TO FLOOR @ 1956 Original Note: PT ARRIVED TO FLOOR VIA STRETCHER FROM ED W/STAFF @ [id number]
[2021-10-09 20:30] LABS: Appearance,Urine CLEAR (Clear); Bilirubin,Urine Negative (Negative); Blood, Urine Negative (Negative); Color,Urine YELLOW (Yellow); Glucose,Urine (UA) Negative (Negative); Ketones,Urine Negative (Negative); Leukocyte Esterase,Urine Negative (Negative); Nitrate,Urine Negative (Negative); Protein,Urine Negative (Negative); Specific Gravity, Urine >= 1.030 (1.005-1.030); Urobilinogen,Urine 0.2 EU/dl (0.2)
[2021-10-09 20:35] LABS: WBC,Urine Occasional #/hpf (0-3)
--- NOTE | 2021-10-09 20:53 | HMH.HP ---
*Admission Date: 10/09/21 *Chief complaint: sob *History of present illness: this patient presented to the [facility] ed with sob with hx of o2 dep copd -patient brought in by ambulance for difficulty breathing and altered mental status. Has a history of prior visits with similar presentation with diagnosis of respiratory failure. Patient unable to provide further information at this time. pt with acute on chronic resp failure with copd and [facility] History I have reviewed the patient's past medical history: Yes Medical History: Reports:: Aneurysm, Arrhythmia, Asthma, Chronic Obstructive Pulmonary Disease (COPD), Coronary Artery Disease, Heart Murmur, Hyperlipidemia, Hypertension, Myocardial Infarction Denies:: Cancer, Diabetes Mellitus Type 1, Diabetes Mellitus Type 2, MRSA *Have you ever received a pneumonia vaccine?: Yes *Have you received a flu vaccine this season?: Yes Other Medical History: Reports: Anemia, Arthritis, Fibromyalgia, Sinus Problems Other Surgeries: Yes: Angiogram, Cardiac Catheterization, Cholecystectomy, Colonoscopy, Coronary Stent, Hysterectomy-Total Amputation: No Fractures: No - *Social History Smoking Status: Current every day smoker Tobacco Type: cigarettes # Packs/Day (cigarettes): 2 #Yrs smoked (if former smoker): 35 Alcohol Intake: current Alcohol Intake Frequency:: holidays/special occasions only Substance Use Type: marijuana *Occupational Status:: disabled Housing: apartment Household Members: friend(s) *Travel in the last 8 weeks: None Family Hx:: Unable to obtain Review of Systems - Review of Systems Review of systems:: unable to obtain Meds Home Medications Medication Instructions Recorded Confirmed Type aspirin 81 mg tablet,delayed 81 mg PO DAILY 02/08/19 10/09/21 History release Albuterol Sulfate [Albuterol 2 puff IH Q4HP PRN 09/09/21 10/09/21 History Sulfate Hfa] Cholecalciferol (Vitamin D3) 25 mcg PO DAILY 09/09/21 10/09/21 History [Vitamin D3] Ergocalciferol (Vitamin D2) 1,250 unit PO WEEKLY 09/09/21 10/09/21 History [Drisdol] Escitalopram Oxalate 20 mg PO DAILY 09/09/21 10/09/21 History Ipratropium/Albuterol Sulfate 3 ml IH TID 09/09/21 10/09/21 History [Duoneb 3mL neb] Metoprolol Succinate [Metoprolol 100 mg PO DAILY 09/09/21 10/09/21 History Succinate 100mg Tablet*] Tiotropium [place] [Spiriva 2 puffs IH DAILY 09/10/21 10/09/21 History Respimat] buspirone 10 mg tablet 10 mg PO BID #60 tab 09/25/21 10/09/21 Rx clonazepam 0.5 mg tablet 0.5 mg PO BID #60 tab 09/25/21 10/09/21 Rx gabapentin 800 mg tablet 800 mg PO QID #120 tab 09/25/21 10/09/21 Rx Budesonide/Glycopyr/Formoterol 2 inh IH BID 10/09/21 10/09/21 History [Breztri Aerosphere] Cetirizine HCl 10 mg PO DAILY 10/09/21 10/09/21 History Clopidogrel Bisulfate [Plavix] 75 mg PO DAILY 10/09/21 10/09/21 History Furosemide [Furosemide 20mg Tab*] 20 mg PO Q2D 10/09/21 10/10/21 History Nicotine [Nicotine Patch 21 mg TD DAILY 10/09/21 10/09/21 History 21mg/24hrs] Pravastatin Sodium [Pravachol 40mg 40 mg PO HS 10/09/21 10/10/21 History Tablet] Oxycodone HCl 10 mg PO QID 10/10/21 10/09/21 History Allergies Allergy/AdvReac Type Severity Reaction Status Date / Time cefdinir [CEFDINIR] Allergy Unknown I-ITCHING Verified 09/25/21 15:38 amoxicillin [From Augmentin] Allergy Verified 09/25/21 15:38 clavulanic acid Allergy Verified 09/25/21 15:38 [From Augmentin] Exam Vital signs and Labs for Last 24 Hours: Temp Pulse Resp BP Pulse Ox 100.7 F H 54 L 18 129/70 100 10/09/21 19:31 10/09/21 19:31 10/09/21 19:31 10/09/21 19:31 10/09/21 18:30 Laboratory Results - last 24 hr 10/09/21 16:50: WBC 8.1, RBC 4.33, Hgb 14.2, Hct 45.9, MCV 106.2 H, MCH 32.7 H, MCHC 30.9 L, RDW 15.5, Plt Count 324, MPV 7.5, Neut % (Auto) 77.5, Lymph % (Auto) 10.9, [place] % (Auto) 7.8, Eos % (Auto) 1.6, Baso % (Auto) 2.2 H, Neut # (Auto) 6.3, Lymph # (Auto) 0.9, [place] # (Auto) 0
[2021-10-10] VITALS (13 sets, daily range): BP systolic 89–154; BP diastolic 47–76; PULSE 50–71; RESP 16–20; TEMP 36.2–37; O2SAT 90–99
[2021-10-10 06:11] LABS: ABG Base Excess 2.7 mmol/L (-2.4-2.3); ABG HCO3 28.8 mmhg (22.0-26.0); ABG Oxygen Saturation 98 % (90-100); ABG PH 7.32 mmol/L (7.35-7.45); ABG PO2 102.3 mmhg (80-100); ABG TCO2 30.5 mmhg (23-27)
[2021-10-10 06:13] LABS: Oxygen 35% %; Vent Rate 16
[2021-10-10 06:14] LABS: Allen's Test Acceptable; Source Right Radial
[2021-10-10 06:15] LABS: Pressure Support 16/6
--- NOTE | 2021-10-10 09:14 | HMH.ACPN2 ---
Internal Medicine - PN: Subj *Date: 10/10/21 *Time: 18:55 Interval history: improved on vapotherm- more alert Exam Vital signs and Labs for Last 24 Hours: Temp Pulse Resp BP Pulse Ox 97.1 F L 66 20 141/76 H 94 L 10/10/21 04:00 10/10/21 08:00 10/10/21 08:00 10/10/21 08:00 10/10/21 08:00 Laboratory Results - last 24 hr 10/09/21 16:50: WBC 8.1, RBC 4.33, Hgb 14.2, Hct 45.9, MCV 106.2 H, MCH 32.7 H, MCHC 30.9 L, RDW 15.5, Plt Count 324, MPV 7.5, Neut % (Auto) 77.5, Lymph % (Auto) 10.9, [place] % (Auto) 7.8, Eos % (Auto) 1.6, Baso % (Auto) 2.2 H, Neut # (Auto) 6.3, Lymph # (Auto) 0.9, [place] # (Auto) 0.6, Eos # (Auto) 0.1, Baso # (Auto) 0.2 10/09/21 16:50: Sodium 137, Potassium 3.5, Chloride 97 L, Carbon Dioxide 36 H, Anion Gap 7.5, BUN 25 H, Creatinine 1.00, Estimated Creat Clear 52, Estimated GFR 57 L, Est GFR ( Amer) 69, Glucose 153 H, Calcium 9.3, Total Bilirubin 0.4, AST 32, ALT 22, Alkaline Phosphatase 74, Troponin I < 0.01, Total Protein 7.0, Albumin 4.3, Globulin 2.7, Albumin/Globulin Ratio 1.6 10/09/21 16:50: Lactate 0.9 10/09/21 16:52: Specimen Source Right radial, O2 % 6lpm, ABG pH 7.28 L, ABG pCO2 68.5 H, ABG pO2 181.8 H, ABG HCO3 31.5 H, ABG Total CO2 33.6 H, ABG O2 Saturation 99, ABG Base Excess 4.7 H, Dg Test Patient unable 10/09/21 17:00: SARS-CoV-2 (PCR) Detected A, Influenza A Untype (PCR) Not detected, Influenza Type B (PCR) Not detected 10/09/21 17:15: Urine Color Yellow, Urine Appearance Clear, Urine pH 5.0, Ur Specific Ernest >= 1.030, Urine Protein Negative, Urine Glucose (UA) Negative, Urine Ketones Negative, Urine Blood Negative, Urine Nitrate Negative, Urine Bilirubin Negative, Urine Urobilinogen 0.2, Ur Leukocyte Esterase Negative, Urine WBC Occasional, Ur Squamous Epith Cells 5-10 10/09/21 19:24: Specimen Source Left radial, O2 % 50, ABG pH 7.31 L, ABG pCO2 60.1 H, ABG pO2 209.8 H, ABG HCO3 29.7 H, ABG Total CO2 31.6 H, ABG O2 Saturation 99, ABG Base Excess 3.5 H, Dg Test Patient unable 10/10/21 06:08: Specimen Source Right radial, O2 % 35%, ABG pH 7.32 L, ABG pCO2 57.0 H, ABG pO2 102.3 H, ABG HCO3 28.8 H, ABG Total CO2 30.5 H, ABG O2 Saturation 98, ABG Base Excess 2.7 H, Dg Test Acceptable, Vent Rate 16 I & O for Last 24 hours: Intake & Output 10/07/21 10/08/21 10/09/21 10/10/21 11:59 11:59 11:59 11:59 Intake Total 865 / 865 Output Total 700 / 700 Balance 165 / 165 Weight 109 lb - Constitutional no acute distress, thin - *Routine HEENT Exam Head: Present: normocephalic Eye: Present: EOMI, PERRL ENT: Present: mucous membranes dry - *Routine Neck Exam Absent: JVD - *Routine Respiratory Exam Present: decreased breath sounds, wheezes, diminished air movement - *Routine Cardiovascular Exam Present: RRR, murmur - *Routine Abdominal Exam Present: soft - *Routine Extremities Exam Absent: calf tenderness - *Routine Skin Exam Present: intact - *Routine Neurological Exam Present: alert, CN II-XII intact - Routine Psychiatric Exam Present: cooperative Assessment and Plan (1) Low body mass index (BMI) Status: Acute Category: Medical (2) Acute exacerbation of chronic obstructive airways disease Status: Acute Category: Medical Code(s): J44.1 - Chronic obstructive pulmonary disease with (acute) exacerbation (3) COVID-19 virus infection Status: Acute Category: Medical Code(s): U07.1 - COVID-19 (4) Respiratory failure with hypoxia and hypercapnia Status: Acute Qualifiers: Chronicity: acute on chronic Qualified Code(s): J96.21 - Acute and chronic respiratory failure with hypoxia; J96.22 - Acute and chronic respiratory failure with hypercapnia Category: Medical Code(s): J96.91 - Respiratory failure, unspecified with hypoxia; J96.92 - Respiratory failure, unspecified with hypercapnia (5) Tobacco use disorder Status: Acute Category: Medical Code(s): F17.200 - Nicotine dependence, unspecified, uncomplicated (6) A
--- NOTE | 2021-10-10 10:38 | P.CONPHA_ITS ---
[facility] Pharmacy VTE Monitoring - Patient Demographics Admission date: 10/09/21 Report Date: 10/10/21 Time: 10:38 Allergies/Adverse Reactions: Patient Allergies cefdinir [CEFDINIR] Allergy (Unknown, Verified 09/25/21 15:38) I-ITCHING amoxicillin [From Augmentin] Allergy (Verified 09/25/21 15:38) clavulanic acid [From Augmentin] Allergy (Verified 09/25/21 15:38) Height: 1.65 m Weight: 49.442 kg Patient Problems: Current Active Problems (Last Updated 04/20/18 @ 15:56 by JASPAL Walter) Respiratory failure with hypoxia and hypercapnia (Acute) Acute exacerbation of chronic obstructive airways disease (Acute) COVID-19 virus infection (Acute) Low body mass index (BMI) (Acute) Anxiety (Chronic) Tobacco use disorder (Acute) - VTE Risk Labs: VTE Related Lab Results Hgb 14.2 g/dL (12.2-16.2) 10/09/21 16:50 Hct 45.9 % (37.0-47.0) 10/09/21 16:50 Plt Count 324 K/mm3 (142-424) 10/09/21 16:50 BUN 25 mg/dl (7-17) H 10/09/21 16:50 Creatinine 1.00 mg/dl (0.52-1.04) 10/09/21 16:50 Estimated Creat Clear 52 mL/min (50-200) 10/09/21 16:50 Was VTE Risk Assessment Performed: Yes VTE Score: 5 VTE Risk Level: Low Risk Clinical Trial Participant: No - Prophylaxis VTE Prophylaxis Ordered?: Yes Types of VTE Prophylaxis: TEDS Knee High Location of Applied Device: Bilateral Lower Extremeties
--- NOTE | 2021-10-10 10:38 | HMH.PHAINT ---
MEDICATION RECONCILIATION COMPLETE USING LIST FROM MOST RECENT MD OFFICE VISIT AND EXTERNAL PHARMACY FILL HISTORY.
[2021-10-11] VITALS (13 sets, daily range): BP systolic 144–163; BP diastolic 51–80; PULSE 52–82; RESP 16–22; TEMP 36.6–37.1; O2SAT 92–97; BMI 18.3
--- NOTE | 2021-10-11 03:54 | PC.NURSE ---
Patient on vapotherm 30L 40% stating she is unable to breathe; using accessory muscles, O2 Sat 93% HR 55; administered scheduled dose of Methylprednisolone; patient very anxious administered PRN Lorazapam 0.5mg PO; patient began to c/o of nausea, coughing & gagging with dry heaves - administered Zofran 4mg IVP. Patient received DuoNeb (x 1 dose) at 0030; next DuoNeb due at 0600. Will continue to monitor.
[2021-10-11 08:39] LABS: Chloride 104 mmol/L (98-107); Potassium 3.4 mmoL/L (3.5-5.1); Sodium 136 mmol/L (136-145)
[2021-10-11 08:42] LABS: Alanine Aminotransferase 18 U/L (12-78); Albumin Level 3.3 g/dl (3.5-5.0); Albumin/Globulin Ratio 1.5 (1.1-1.8); Alkaline Phosphatase 58 U/L (38-126); Anion Gap 6.4 mEq/L (5-15); Aspartate Amino Transferase 29 U/L (14-36); Bilirubin,Total 0.4 mg/dl (0.2-1.3); Blood Urea Nitrogen 23 mg/dl (7-17); Calcium 8.6 mg/dl (8.4-10.2); Carbon Dioxide 29 mmol/L (22.0-30.0); Creatinine Clearance Estimated 68 mL/min (50-200); Estimated Glomerular Filt Rate 86 ml/min (>60); GFR (African American) 104 ML/MIN (>60); Globulin 2.2 g/dL (1.3-3.2); Glucose 144 mg/dl (74-100); Total Protein,Serum 5.5 g/dl (6.3-8.2)
--- NOTE | 2021-10-11 11:52 | XR_ITS ---
PROCEDURE INFORMATION: Exam: XR Chest Exam date and time: 10/11/2021 12:45 PM Age: 61 years old Clinical indication: Patient HX: Shortness of breath, covid positive. Done portable. ; Additional info: Sob/covid-19 TECHNIQUE: Imaging protocol: XR of the chest. Views: 1 view. COMPARISON: CR XR CHEST PORTABLE 10/09/2021 4:55 PM FINDINGS: Lungs: See Diaphragm finding. Pleural spaces: Unremarkable. No pleural effusion. No pneumothorax. Heart/Mediastinum: Unremarkable. No cardiomegaly. Diaphragm: Hyperlucent changes are demonstrated. There is flattening of the hemidiaphragms. Increase in the lung volumes is demonstrated. Bones/joints: Unremarkable. IMPRESSION: 1. No evidence of acute cardiopulmonary disease. 2. Findings compatible with chronic obstructive pulmonary disease.
--- NOTE | 2021-10-11 11:54 | HMH.ACPN2 ---
Internal Medicine - PN: Subj *Date: 10/11/21 *Time: 19:40 Interval history: doing better but still sob Exam Vital signs and Labs for Last 24 Hours: Temp Pulse Resp BP Pulse Ox 97.8 F 63 20 163/71 H 96 10/11/21 11:21 10/11/21 11:21 10/11/21 11:21 10/11/21 11:21 10/11/21 10:55 Laboratory Results - last 24 hr 10/11/21 07:57: Sodium 136, Potassium 3.4 L, Chloride 104, Carbon Dioxide 29, Anion Gap 6.4, BUN 23 H, Creatinine 0.70 D, Estimated Creat Clear 68, Estimated GFR 86, Est GFR ( Amer) 104 D, Glucose 144 H, Calcium 8.6, Total Bilirubin 0.4, AST 29, ALT 18, Alkaline Phosphatase 58, Total Protein 5.5 L, Albumin 3.3 L, Globulin 2.2, Albumin/Globulin Ratio 1.5 I & O for Last 24 hours: Intake & Output 10/08/21 10/09/21 10/10/21 10/11/21 11:59 11:59 11:59 11:59 Intake Total 865 / 865 1440 / 1440 Output Total 700 / 700 1000 / 1000 Balance 165 / 165 440 / 440 Weight 109 lb 110 lb 3.698 oz - Constitutional no acute distress, thin - *Routine HEENT Exam Head: Present: normocephalic Eye: Present: EOMI, PERRL ENT: Present: mucous membranes dry - *Routine Neck Exam Absent: JVD - *Routine Respiratory Exam Present: decreased breath sounds, prolonged expiratory phase, wheezes - *Routine Cardiovascular Exam Present: RRR - *Routine Abdominal Exam Present: soft - *Routine Extremities Exam Absent: calf tenderness - *Routine Skin Exam Present: intact - *Routine Neurological Exam Present: alert, CN II-XII intact - Routine Psychiatric Exam Present: normal affect Assessment and Plan (1) Low body mass index (BMI) Status: Acute Category: Medical (2) Acute exacerbation of chronic obstructive airways disease Status: Acute Category: Medical Code(s): J44.1 - Chronic obstructive pulmonary disease with (acute) exacerbation (3) COVID-19 virus infection Status: Acute Category: Medical Code(s): U07.1 - COVID-19 (4) Respiratory failure with hypoxia and hypercapnia Status: Acute Qualifiers: Chronicity: acute on chronic Qualified Code(s): J96.21 - Acute and chronic respiratory failure with hypoxia; J96.22 - Acute and chronic respiratory failure with hypercapnia Category: Medical Code(s): J96.91 - Respiratory failure, unspecified with hypoxia; J96.92 - Respiratory failure, unspecified with hypercapnia (5) Tobacco use disorder Status: Acute Category: Medical Code(s): F17.200 - Nicotine dependence, unspecified, uncomplicated (6) Anxiety Status: Chronic Category: Medical Code(s): F41.9 - Anxiety disorder, unspecified
[2021-10-12] VITALS (9 sets, daily range): BP systolic 129–158; BP diastolic 56–79; PULSE 50–80; RESP 16–22; TEMP 35.9–37.2; O2SAT 88–98; BMI 18.3
--- NOTE | 2021-10-12 04:00 | PC.NURSE ---
pt rested well through the night after receiving home meds routinely, iv restarted, pt remains on 02 at 3L with sats 98%, lung sounds diminished.
[2021-10-12 06:51] LABS: Chloride 104 mmol/L (98-107); Sodium 139 mmol/L (136-145)
[2021-10-12 06:52] LABS: Potassium 3.1 mmoL/L (3.5-5.1)
[2021-10-12 06:54] LABS: Alanine Aminotransferase 15 U/L (12-78); Albumin Level 3.1 g/dl (3.5-5.0); Albumin/Globulin Ratio 1.4 (1.1-1.8); Alkaline Phosphatase 52 U/L (38-126); Anion Gap 7.1 mEq/L (5-15); Aspartate Amino Transferase 20 U/L (14-36); Bilirubin,Total 0.3 mg/dl (0.2-1.3); Blood Urea Nitrogen 30 mg/dl (7-17); Carbon Dioxide 31 mmol/L (22.0-30.0); Creatinine Clearance Estimated 60 mL/min (50-200); Estimated Glomerular Filt Rate 73 ml/min (>60); GFR (African American) 89 ML/MIN (>60); Globulin 2.2 g/dL (1.3-3.2); Total Protein,Serum 5.3 g/dl (6.3-8.2)
[2021-10-12 06:55] LABS: Calcium 8.4 mg/dl (8.4-10.2); Glucose 179 mg/dl (74-100)
--- NOTE | 2021-10-12 10:23 | HMH.ACPN2 ---
Internal Medicine - PN: Subj *Date: 10/12/21 *Time: 09:40 Interval history: pt states a little better today Exam Vital signs and Labs for Last 24 Hours: Temp Pulse Resp BP Pulse Ox 98.2 F 63 18 150/68 H 97 10/12/21 08:00 10/12/21 08:00 10/12/21 08:00 10/12/21 08:00 10/12/21 08:00 Laboratory Results - last 24 hr 10/12/21 06:24: Sodium 139, Potassium 3.1 L, Chloride 104, Carbon Dioxide 31 H, Anion Gap 7.1, BUN 30 H D, Creatinine 0.80, Estimated Creat Clear 60, Estimated GFR 73, Est GFR ( Amer) 89, Glucose 179 H D, Calcium 8.4, Total Bilirubin 0.3, AST 20 D, ALT 15, Alkaline Phosphatase 52, Total Protein 5.3 L, Albumin 3.1 L, Globulin 2.2, Albumin/Globulin Ratio 1.4 I & O for Last 24 hours: Intake & Output 10/09/21 10/10/21 10/11/21 10/12/21 11:59 11:59 11:59 11:59 Intake Total 865 / 865 1440 / 1440 1440 / 1440 Output Total 700 / 700 1000 / 1000 2750 / 2750 Balance 165 / 165 440 / 440 -1310 / -1310 Weight 109 lb 110 lb 3.698 oz 110 lb 3.698 oz Microbiology Reports for the Last 24 Hours: Microbiology 10/09/21 16:50 Blood Blood Culture - Preliminary NO GROWTH AFTER 48 HOURS 10/09/21 16:50 Blood Blood Culture - Preliminary NO GROWTH AFTER 48 HOURS - Constitutional no acute distress - *Routine HEENT Exam Head: Present: normocephalic Eye: Present: PERRL ENT: Present: mucous membranes moist - *Routine Neck Exam Present: supple. Absent: lymphadenopathy - *Routine Respiratory Exam Present: rhonchi - *Routine Cardiovascular Exam Present: RRR - *Routine Abdominal Exam Present: soft, normoactive bowel sounds. Absent: tenderness - *Routine Extremities Exam Absent: cyanosis, clubbing, edema - *Routine Skin Exam Present: warm. Absent: rash - *Routine Neurological Exam Present: alert, oriented X3 Assessment and Plan (1) Low body mass index (BMI) Status: Acute Category: Medical (2) Acute exacerbation of chronic obstructive airways disease Status: Acute Category: Medical Code(s): J44.1 - Chronic obstructive pulmonary disease with (acute) exacerbation (3) COVID-19 virus infection Status: Acute Category: Medical Code(s): U07.1 - COVID-19 (4) Respiratory failure with hypoxia and hypercapnia Status: Acute Qualifiers: Chronicity: acute on chronic Qualified Code(s): J96.21 - Acute and chronic respiratory failure with hypoxia; J96.22 - Acute and chronic respiratory failure with hypercapnia Category: Medical Code(s): J96.91 - Respiratory failure, unspecified with hypoxia; J96.92 - Respiratory failure, unspecified with hypercapnia (5) Tobacco use disorder Status: Acute Category: Medical Code(s): F17.200 - Nicotine dependence, unspecified, uncomplicated (6) Anxiety Status: Chronic Category: Medical Code(s): F41.9 - Anxiety disorder, unspecified - Assessment and plan all Dx Assessment and Plan for all problems:: rounded with dr alexandre all orders per dr alexandre continue care wean o2 oob
--- NOTE | 2021-10-12 16:03 | PC.NURSE ---
PT IS RESTING IN BED. ALERT AND ORIENTED X4. EATING AND DRINKING WELL. CATHETER DC'D THIS SHIFT. O2 SATURATION HAS MAINTAINED 90-94% ON 3 L NC. LUNG SOUNDS DIMINISHED. ABDOMEN SOFT/NON TENDER WITH ACTIVE BOWEL SOUNDS. TEDS NOTED TO BLE. WILL CONTINUE TO MONITOR.
[2021-10-13] VITALS (7 sets, daily range): BP systolic 115–150; BP diastolic 65–74; PULSE 50–70; RESP 16–20; TEMP 36.4–37.4; O2SAT 87–92; BMI 19.4
--- NOTE | 2021-10-13 06:14 | PC.NURSE ---
No acute changes. Pt tolerating 3 L nc well with sats > 90%. Pt will drop into mid 80s with exertion. Call light within reach.
--- NOTE | 2021-10-13 06:28 | PC.NURSE ---
Duoneb treatment given in conjunction with Mucomyst, Pt tolerated tx well. Combivent held this time due to Duoneb given.
[2021-10-13 06:57] LABS: Basophils % 0.9 % (0.1-2.0); Hematocrit 36.7 % (37.0-47.0); Hemoglobin 12.6 g/dL (12.2-16.2); Lymphocytes # 0.1 K/mm3 (0.7-4.5); Mean Corpuscular HGB Conc 34.3 g/dL (31.8-35.4); Mean Corpuscular Hemoglobin 33.6 pg (27.0-31.2); Mean Platelet Volume 7.3 fl (7.4-10.4); Monocytes # 0.1 K/mm3 (0.1-1.0); Monocytes % 2.5 % (1.7-9.3); Neutrophils # 3.7 K/mm3 (1.8-7.8); Neutrophils % 93.6 % (37.0-80.0); Platelet Count 321 K/mm3 (142-424); Red Blood Count 3.75 M/mm3 (4.20-5.40); Red Cell Distribution Width 15.4 % (11.5-17.5)
[2021-10-13 07:01] LABS: MANUAL DIFFERENTIAL MANUAL DIFFERENTIAL (MANUAL DIFF)
[2021-10-13 07:07] LABS: Chloride 106 mmol/L (98-107); Sodium 137 mmol/L (136-145)
[2021-10-13 07:10] LABS: Alanine Aminotransferase 13 U/L (12-78); Albumin Level 2.9 g/dl (3.5-5.0); Albumin/Globulin Ratio 1.4 (1.1-1.8); Alkaline Phosphatase 48 U/L (38-126); Anion Gap 3.8 mEq/L (5-15); Aspartate Amino Transferase 16 U/L (14-36); Bilirubin,Total 0.3 mg/dl (0.2-1.3); Blood Urea Nitrogen 25 mg/dl (7-17); Carbon Dioxide 30 mmol/L (22.0-30.0); Creatinine Clearance Estimated 72 mL/min (50-200); Estimated Glomerular Filt Rate 86 ml/min (>60); GFR (African American) 104 ML/MIN (>60); Globulin 2.1 g/dL (1.3-3.2)
[2021-10-13 07:11] LABS: Glucose 160 mg/dl (74-100)
[2021-10-13 07:17] LABS: Potassium 2.8 mmoL/L (3.5-5.1)
[2021-10-13 07:37] LABS: Lymphocytes % 3 % (10-50); Monocytes % 1 % (2-9); Neutrophils % 96 % (42-76); Platelet Estimate Normal; RBC Morphology Normal; Total Cells Counted 100
--- NOTE | 2021-10-13 08:48 | PC.NURSE ---
PT DESATED WITH EXERTION WHEN GETTING UP. MAINTAINED IN THE LOW 80'S. INCREASED FLOW RATE TO 2.5 LNC. PT THEN RECOVERED AND O2 FLOW RATE WAS DECREASED BACK TO 2LNC.
--- NOTE | 2021-10-13 09:27 | HMH.DCSUM ---
General - General Admission date:: 10/09/21 Discharge date: 10/13/21 HPI HPI: this patient presented to the [facility] ed with sob with hx of o2 dep copd -patient brought in by ambulance for difficulty breathing and altered mental status. Has a history of prior visits with similar presentation with diagnosis of respiratory failure. Patient unable to provide further information at this time. pt with acute on chronic resp failure with copd and was admitted on bpap - Hospital Course Hospital Course: this patient presented to the [facility] ed with sob with hx of o2 dep copd -patient brought in by ambulance for difficulty breathing and altered mental status. Has a history of prior visits with similar presentation with diagnosis of respiratory failure. Patient unable to provide further information at this time. pt with acute on chronic resp failure with copd and was admitted on bpap - She was admitted on BiPAP and then placed on Vapotherm was eventually weaned to nasal cannula and presently oxygen saturations 94% on 2 L per nasal cannula. She is oxygen dependent and uses 2 L at home Chest x-ray shows COPD During her stay she has received levofloxacin IV, methylprednisone IV, remdesivir IV and enoxaparin subcu Low body mass index (BMI) Dietary has met with patient and discussed better dietary habits Acute exacerbation of chronic obstructive airways disease COVID-19 virus infection Respiratory failure with hypoxia and hypercapnia Upon admission she was placed on BiPAP then transition to Vapotherm, weaned to nasal cannula. Current oxygenation saturation 94% on 2 L per nasal cannula which is her home about. She has received levofloxacin IV, methylprednisone IV, remdesivir IV, and enoxaparin subcu she also received duo nebs. Patient will be discharged on respiratory Tobacco use disorder Tobacco cessation strongly urged patient states she understands she does need to quit smoking and will discuss at next PCP appointment Anxiety She will be continued on clonazepam and BuSpar 61-year-old female patient sitting up in bed resting quietly she denies any respiratory distress at present and states she had none during the night. She is requesting to be discharged home oxygen status is back to baseline she reports feeling much better than yesterday. PLAN: 1. We will discharge home today 2. Follow-up with PCP in 1 week Objective Vital signs: Temp Pulse Resp BP Pulse Ox 98.3 F 63 18 132/72 91 L 10/13/21 08:00 10/13/21 08:00 10/13/21 08:00 10/13/21 08:00 10/13/21 08:45 no acute distress - *Routine HEENT Exam Head: Present: normocephalic Eye: Present: EOMI ENT: Present: mucous membranes moist - *Routine Neck Exam Present: trachea midline. Absent: tracheal deviation - *Routine Respiratory Exam Present: rhonchi. Absent: accessory muscle use - *Routine Cardiovascular Exam Present: RRR - *Routine Abdominal Exam Present: soft, normoactive bowel sounds. Absent: tenderness, firm - *Routine Extremities Exam Present: full ROM, pulses intact. Absent: cyanosis, clubbing - *Routine Skin Exam Present: intact, dry. Absent: cyanosis, erythema - *Routine Neurological Exam Present: alert, oriented X3. Absent: motor deficit - Routine Psychiatric Exam Present: normal affect, normal thought process. Absent: visual hallucinations Results Labs on day of discharge: Labs from last 24 hours 10/13/21 10/13/21 06:13 06:13 WBC 4.0 L RBC 3.75 L Hgb 12.6 Hct 36.7 L MCV 98.0 MCH 33.6 H MCHC 34.3 RDW 15.4 Plt Count 321 MPV 7.3 L Neut % (Auto) 93.6 H Lymph % (Auto) 3.0 L [place] % (Auto) 2.5 Eos % (Auto) 0.0 L Baso % (Auto) 0.9 Neut # (Auto) 3.7 Lymph # (Auto) 0.1 L [place] # (Auto) 0.1 Eos # (Auto) 0.0 Baso # (Auto) 0.0 Total Counted 100 Neutrophils % (Manual) 96 H Lymphocytes % (Manual) 3 L Monocytes % (Manual) 1 L Platelet Estimate
--- NOTE | 2021-10-15 17:21 | CARE MANAGER ---
Called and spoke with patient today regarding post discharge status. Patient states that she is feeling better, but has increased congestion now that she is home. I advised patient to call Dr. Briggs's office in the AM to see about moving her follow up appt to earlier than 10/26 (which is what was scheduled at discharge). She plans to call in the morning.
== END 2021-10-13 15:13 | disposition home or self-care (01) | DRG 177 ==
LOC: ER 17:17 → 2ND 18:48
PROVIDERS: Admitting Provider Emergency Medicine; Emergency Provider Emergency Medicine; PCP Emergency Medicine; Visit Provider Emergency Medicine
DX: J96.21 Acute and chronic respiratory failure with hypoxia (principal); J96.22 Acute and chronic respiratory failure with hypercapnia; U07.1 COVID-19; J44.1 Chronic obstructive pulmonary disease with (acute) exacerbation; I25.10 Atherosclerotic heart disease of native coronary artery without angina pectoris; E78.5 Hyperlipidemia, unspecified; I25.2 Old myocardial infarction; Z95.5 Presence of coronary angioplasty implant and graft; F17.210 Nicotine dependence, cigarettes, uncomplicated; M19.90 Unspecified osteoarthritis, unspecified site; M79.7 Fibromyalgia; F41.9 Anxiety disorder, unspecified; Z99.81 Dependence on supplemental oxygen; Z71.6 Tobacco abuse counseling; Z95.810 Presence of automatic (implantable) cardiac defibrillator
CPT/HCPCS: 36415; 51702; 71045; 80053; 81001; 82803; 83605; 84484; 85007; 85025; 87040; 93005; 94640; 94660; 94760; 94761; 99285; C9803; J1956; J2405; U0003; U0005

== ENCOUNTER 2021-11-03 17:36 | Emergency (ER) | payer MEDICAID, SELFPAY ==
[2021-11-03 17:37] VITALS: BP 103/63; PULSE 94; RESP 18; TEMP 37.1; O2SAT 98; BMI 16.1
--- NOTE | 2021-11-03 17:48 | XR_ITS ---
PROCEDURE INFORMATION: Exam: XR Chest Exam date and time: 11/03/2021 6:10 PM Age: 61 years old Clinical indication: Shortness of breath; Additional info: AMS TECHNIQUE: Imaging protocol: Radiologic exam of the chest. Views: 1 view. COMPARISON: CR XR CHEST PORTABLE 10/11/2021 12:45 PM FINDINGS: Lungs: Hyperexpanded lung churchill consistent with COPD. Pleural spaces: Unremarkable. No pleural effusion. No pneumothorax. Heart/Mediastinum: Unremarkable. No cardiomegaly. Bones/joints: Unremarkable. Intraperitoneal space: Surgical clips in the right upper quadrant of the abdomen IMPRESSION: Hyperexpanded lung churchill consistent with COPD.
[2021-11-03 18:02] LABS: Chloride 99 mmol/L (98-107)
[2021-11-03 18:03] LABS: Sodium 139 mmol/L (136-145)
--- NOTE | 2021-11-03 18:03 | HMH.EDGENADL ---
ED Disposition Clinical Impression: Mental status change resolved, Somnolence COPD (chronic obstructive pulmonary disease) Qualifiers: COPD type: emphysema Emphysema type: unspecified Qualified Code(s): J43.9 - Emphysema, unspecified Disposition: Home, Self-Care Condition on Discharge: Good Instructions: DI for Chronic Obstructive Pulmonary Disease, DI for Altered Mental Status Additional Instructions: Wear her oxygen at all times. Continue nebulizer treatments 3 times daily. Follow-up with primary care provider for any worsening of symptoms. Referrals: Justen Briggs MD [Primary Care Provider] - - Critical Care Critical Care Time: No Attestation: On , the high probability of a clinically significant, sudden or life threatening deterioration of the following system(s) required my full and direct attention, intervention and personal management. The time I documented below is in addition to time spent performing reported procedures but includes the following listed in this critical care notation. Medical Decision Making - Roberto Inquiry Pt receiving controlled substance: No Vital Signs: 11/03/21 17:37 11/03/21 18:15 Temperature 98.8 F Temperature Source Oral Pulse Rate 85 Pulse Rate [Radial] 94 H Respiratory Rate 18 Blood Pressure 101/56 L Blood Pressure [Right Arm] 103/63 L Blood Pressure Mean [Right Arm] 76 Blood Pressure Position [Right Arm] Sitting 02 Sat by Pulse Oximetry 98 99 Oxygen Delivery Method Nasal Cannula Oxygen Flow Rate (LPM) 2 - Lab Data Lab Results 11/03/21 17:30: WBC 5.2, RBC 3.16 L, Hgb 10.4 L, Hct 30.6 L, MCV 96.8, MCH 33.0 H, MCHC 34.1, RDW 14.8, Plt Count 394, MPV 6.6 L, Neut % (Auto) 62.0, Lymph % (Auto) 28.8, [place] % (Auto) 6.6, Eos % (Auto) 2.1, Baso % (Auto) 0.4, Neut # (Auto) 3.2, Lymph # (Auto) 1.5, [place] # (Auto) 0.4, Eos # (Auto) 0.1, Baso # (Auto) 0.0 11/03/21 17:30: Sodium 139, Potassium 3.0 L, Chloride 99, Carbon Dioxide 40 H, Anion Gap 3.0 L, BUN 12, Creatinine 0.70, Estimated Creat Clear 62, Estimated GFR 86, Est GFR ( Amer) 104, Glucose 130 H, Calcium 9.0, Total Bilirubin 0.7, AST 33, ALT 18, Alkaline Phosphatase 49, Troponin I < 0.01, Total Protein 5.9 L, Albumin 3.5, Globulin 2.4, Albumin/Globulin Ratio 1.5 11/03/21 17:30: Lactate 1.4 11/03/21 17:47: Specimen Source Left radial, O2 % 3lpm, ABG pH 7.44, ABG pCO2 50.7 H, ABG pO2 83.8, ABG HCO3 33.7 H, ABG Total CO2 35.2 H, ABG O2 Saturation 96, ABG Base Excess 9.5 H, Dg Test Acceptable 11/03/21 18:40: Urine Color Yellow, Urine Appearance Clear, Urine pH 6.0, Ur Specific [place] <= 1.005, Urine Protein Negative, Urine Glucose (UA) Negative, Urine Ketones Negative, Urine Blood Negative, Urine Nitrate Negative, Urine Bilirubin Negative, Urine Urobilinogen 0.2, Ur Leukocyte Esterase Negative Result diagrams: 11/03/21 17:30 11/03/21 17:30 Orders (Tests/Meds): ED MEDICATIONS Discontinued Medications Generic Name Dose Route Start Last Admin Trade Name Freq PRN Reason Stop Dose Admin Potassium Chloride 40 meq 11/03/21 18:29 11/03/21 18:37 Potassium Chloride 20meq Tab PO 11/03/21 18:30 40 meq ONCE ONE Administration ORDERS Category Date Time Status Troponin I Q3H Lab 11/03/21 21:00 Ordered Troponin I Q3H Lab 11/04/21 00:00 Ordered Urinalysis and Microscopic Stat Lab 11/03/21 18:40 Results - Radiology Data #1 Image(s): Chest (Preliminary interpretation by me: COPD) Image Reviewed: Yes I reviewed the patient's radiology image, Yes I have reviewed radiologist's interpretation PROCEDURE INFORMATION: Exam: XR Chest Exam date and time: 11/03/2021 6:10 PM Age: 61 years old Clinical indication: Shortness of breath; Additional info: AMS TECHNIQUE: Imaging protocol: Radiologic exam of the chest. Views: 1 view. COMPARISON: CR XR CHEST PORTABLE 10/11/2021 12:45 PM FINDINGS: Lungs: Hyperexpanded lung churchill consistent with COPD. Pleural spaces: Unr
[2021-11-03 18:05] LABS: Alanine Aminotransferase 18 U/L (12-78); Albumin Level 3.5 g/dl (3.5-5.0); Alkaline Phosphatase 49 U/L (38-126); Aspartate Amino Transferase 33 U/L (14-36); Basophils % 0.4 % (0.1-2.0); Bilirubin,Total 0.7 mg/dl (0.2-1.3); Blood Urea Nitrogen 12 mg/dl (7-17); Creatinine Clearance Estimated 62 mL/min (50-200); Eosinophils # 0.1 K/mm3 (0.0-0.4); Eosinophils % 2.1 % (0.1-12.0); Estimated Glomerular Filt Rate 86 ml/min (>60); GFR (African American) 104 ML/MIN (>60); Hematocrit 30.6 % (37.0-47.0); Hemoglobin 10.4 g/dL (12.2-16.2); Lymphocytes # 1.5 K/mm3 (0.7-4.5); Lymphocytes % 28.8 % (10-50); Mean Corpuscular HGB Conc 34.1 g/dL (31.8-35.4); Mean Corpuscular Volume 96.8 fl (81-99); Mean Platelet Volume 6.6 fl (7.4-10.4); Monocytes # 0.4 K/mm3 (0.1-1.0); Monocytes % 6.6 % (1.7-9.3); Neutrophils # 3.2 K/mm3 (1.8-7.8); Platelet Count 394 K/mm3 (142-424); Red Blood Count 3.16 M/mm3 (4.20-5.40); Red Cell Distribution Width 14.8 % (11.5-17.5); White Blood Count 5.2 K/mm3 (4.8-10.8)
[2021-11-03 18:06] LABS: Albumin/Globulin Ratio 1.5 (1.1-1.8); Carbon Dioxide 40 mmol/L (22.0-30.0); Globulin 2.4 g/dL (1.3-3.2); Glucose 130 mg/dl (74-100); Lactic Acid 1.4 mmol/L (0.7-2.1); Total Protein,Serum 5.9 g/dl (6.3-8.2)
--- NOTE | 2021-11-03 18:09 | ECG_ITS ---
APPROVED REPORT Exam: Resting ECG HR:91 bpm ECG Measurements Heart Rate 91 AXES VT 133 P 43 QRSd 86 QRS 74 QT 343 T -50 QTc 392 Conclusion SINUS RHYTHM Incomplete ventricular conduction delay Poor R wave progression ABNORMAL ECG UNCONFIRMED REPORT Electronically signed by : Tao Mcgowan MD 11/04/2021 17:27:50
--- NOTE | 2021-11-03 18:12 | PC.NURSE ---
XR AT BEDSIDE
[2021-11-03 18:15] VITALS: BP 101/56; PULSE 85; O2SAT 99
--- NOTE | 2021-11-03 18:20 | PC.NURSE ---
aware of potassium of 3.0
[2021-11-03 18:23] LABS: Troponin I < 0.01 ng/ml (0.00-0.034)
[2021-11-03 18:23] LABS: ABG Base Excess 9.5 mmol/L (-2.4-2.3); ABG HCO3 33.7 mmhg (22.0-26.0); ABG Oxygen Saturation 96 % (90-100); ABG PH 7.44 mmol/L (7.35-7.45); ABG PO2 83.8 mmhg (80-100); ABG TCO2 35.2 mmhg (23-27)
[2021-11-03 18:24] LABS: Allen's Test Acceptable; Source Left Radial
[2021-11-03 18:27] LABS: ABG PCO2 50.7 mmhg (35.0-45.0)
--- NOTE | 2021-11-03 18:30 | PC.NURSE ---
PT UP TO BATHROOM AMBULATORY
[2021-11-03 18:48] LABS: Microscopic, Urine URINE MICROSCOPIC (MICROSCOPIC)
[2021-11-03 18:50] LABS: Appearance,Urine CLEAR (Clear); Bilirubin,Urine Negative (Negative); Blood, Urine Negative (Negative); Color,Urine YELLOW (Yellow); Glucose,Urine (UA) Negative (Negative); Ketones,Urine Negative (Negative); Leukocyte Esterase,Urine Negative (Negative); Nitrate,Urine Negative (Negative); Protein,Urine Negative (Negative); Specific Gravity, Urine <= 1.005 (1.005-1.030); Urobilinogen,Urine 0.2 EU/dl (0.2)
[2021-11-03 19:07] LABS: Amorphous Sediment,Urine Trace /lpf
[2021-11-03 19:49] VITALS: BP 120/66; PULSE 97; RESP 20; TEMP 37.1; O2SAT 98
== END 2021-11-03 19:52 | disposition home or self-care (01) ==
PROVIDERS: Emergency Provider Emergency Medicine; PCP Emergency Medicine
DX: R53.1 Weakness (principal); R40.0 Somnolence; J44.9 Chronic obstructive pulmonary disease, unspecified; Z99.81 Dependence on supplemental oxygen; F17.210 Nicotine dependence, cigarettes, uncomplicated
CPT/HCPCS: 71045; 80053; 81001; 82803; 83605; 84484; 85025; 93005; 99284

== ENCOUNTER → 2021-11-11 07:11 | Outpatient (CLI) | payer MEDICAID, SELFPAY ==
[2021-11-10 21:21] LABS: Opiate Screen,Urine Positive ng/ml (<300)
[2021-11-10 21:22] LABS: Phencyclidine Screen,Urine Negative ng/ml (<25)
[2021-11-10 21:23] LABS: Amphetamine/Metha Screen,Urine Negative ng/ml (<1000); Barbiturates Screen,Urine Negative ng/ml (<200)
[2021-11-10 21:24] LABS: Benzodiazepines Screen,Urine Negative ng/ml (<200)
[2021-11-10 21:25] LABS: Cannabinoid Screen,Urine Positive ng/ml (<50); Cocaine Screen,Urine Negative ng/ml (<300)
[2021-11-10 21:26] LABS: Methadone Screen,Urine Negative ng/ml (<300)
== END ==
PROVIDERS: PCP Emergency Medicine; Visit Provider Emergency Medicine
DX: Z79.899 Other long term (current) drug therapy (principal)
CPT/HCPCS: 80305

== ENCOUNTER → 2021-12-16 06:19 | Outpatient (CLI) | payer MEDICAID, SELFPAY ==
[2021-12-16 18:44] LABS: Barbiturates Screen,Urine Negative ng/ml (<200); Benzodiazepines Screen,Urine Negative ng/ml (<200)
[2021-12-16 18:45] LABS: Amphetamine/Metha Screen,Urine Negative ng/ml (<1000)
[2021-12-16 18:46] LABS: Cannabinoid Screen,Urine Positive ng/ml (<50); Cocaine Screen,Urine Negative ng/ml (<300)
[2021-12-16 18:47] LABS: Methadone Screen,Urine Negative ng/ml (<300); Phencyclidine Screen,Urine Negative ng/ml (<25)
[2021-12-16 18:48] LABS: Opiate Screen,Urine Negative ng/ml (<300)
== END ==
PROVIDERS: PCP Emergency Medicine; Visit Provider Emergency Medicine
DX: F41.9 Anxiety disorder, unspecified (principal); M54.16 Radiculopathy, lumbar region
CPT/HCPCS: 80305

== ENCOUNTER 2021-12-24 21:45 | Emergency (ER) | payer MEDICAID, SELFPAY ==
[2021-12-24 21:42] VITALS: BP 139/69; PULSE 73; RESP 22; TEMP 36.8; O2SAT 98; BMI 18.6
--- NOTE | 2021-12-24 21:45 | XR_ITS ---
PROCEDURE INFORMATION: Exam: XR Chest Exam date and time: 12/24/2021 10:08 PM Age: 61 years old Clinical indication: Cough and shortness of breath; Additional info: Cough, short of breath TECHNIQUE: Imaging protocol: Radiologic exam of the chest. Views: 1 view. COMPARISON: CR XR CHEST PORTABLE 11/03/2021 6:10 PM FINDINGS: Lungs: Pulmonary hyperinflation without consolidation. Pleural spaces: No pneumothorax. Heart/Mediastinum: No cardiomegaly. Bones/joints: No acute abnormality. Organs: Post cholecystectomy change. IMPRESSION: Chronic changes without acute process.
--- NOTE | 2021-12-24 21:46 | ECG_ITS ---
APPROVED REPORT Exam: Resting ECG HR:70 bpm ECG Measurements Heart Rate 70 AXES SD 181 P 79 QRSd 81 QRS 78 QT 367 T 49 QTc 387 Conclusion SINUS RHYTHM POSSIBLE RIGHT VENTRICULAR CONDUCTION DELAY [RSR (QR) IN V1/V2] SEPTAL MYOCARDIAL INFARCTION , PROBABLY OLD [40+ ms Q WAVE IN V1/V2] ABNORMAL ECG UNCONFIRMED REPORT Electronically signed by : Tao Mcgowan MD 12/25/2021 17:01:41
--- NOTE | 2021-12-24 21:46 | HMH.EDGENADL ---
ED Disposition Clinical Impression: COPD exacerbation Disposition: Home, Self-Care Condition on Discharge: Fair Instructions: DI for Chronic Obstructive Pulmonary Disease Additional Instructions: You have been evaluated for cough and wheezing, diagnosed with a COPD exacerbation. Please take steroids and antibiotics as prescribed. Use your home oxygen. Follow-up with Dr. Briggs in clinic in 1 to 2 days for symptom recheck. Return to the emergency department at once for any new or worsening symptoms, difficulty breathing, fever, confusion or other concerns. Prescriptions: levoFLOXacin [Levofloxacin 750MG Tablet*] 750 mg PO DAILY #5 tab Transmission Status: Pending to [facility] predniSONE [Prednisone 20mg Tab] 40 mg PO DAILY #10 tab Transmission Status: Pending to [facility] Referrals: Justen Briggs MD [Primary Care Provider] - Time of Disposition: 23:01 - Critical Care Critical Care Time: No Attestation: On , the high probability of a clinically significant, sudden or life threatening deterioration of the following system(s) required my full and direct attention, intervention and personal management. The time I documented below is in addition to time spent performing reported procedures but includes the following listed in this critical care notation. Medical Decision Making - Medical Records Medical records reviewed: Yes: I reviewed the patient's medical records. - Roberto Inquiry Pt receiving controlled substance: No Vital Signs: 12/24/21 21:42 Temperature 98.3 F Temperature Source Oral Pulse Rate [Right] 73 Respiratory Rate 22 Blood Pressure [Right Arm] 139/69 Blood Pressure Mean [Right Arm] 92 02 Sat by Pulse Oximetry 98 Oxygen Delivery Method Nasal Cannula Oxygen Flow Rate (LPM) 2 - Lab Data Lab Results 12/24/21 21:45: VBG pH 7.37, VBG pCO2 54.3 H, VBG pO2 48.6 H, VBG HCO3 30.7 H, VBG Total CO2 32.4 H, VBG O2 Saturation 85.4 H, VBG Base Excess 5.4 H 12/24/21 21:45: WBC 4.5 L, RBC 3.64 L, Hgb 11.9 L, Hct 36.9 L, MCV 101.3 H, MCH 32.7 H, MCHC 32.3, RDW 14.2, Plt Count 435 H, MPV 7.4, Neut % (Auto) 73.5, Lymph % (Auto) 19.0, [place] % (Auto) 4.5, Eos % (Auto) 1.5, Baso % (Auto) 1.4, Neut # (Auto) 3.3, Lymph # (Auto) 0.9, [place] # (Auto) 0.2, Eos # (Auto) 0.1, Baso # (Auto) 0.1 12/24/21 21:45: Sodium 144, Potassium 3.6, Chloride 105, Carbon Dioxide 36 H, Anion Gap 6.6, BUN 16, Creatinine 0.70, Estimated Creat Clear 71, Estimated GFR 86, Est GFR ( Amer) 104, Glucose 119 H, Calcium 9.4, Total Bilirubin 0.3, AST 35, ALT 17, Alkaline Phosphatase 64, Total Protein 6.3, Albumin 4.0, Globulin 2.3, Albumin/Globulin Ratio 1.7 Result diagrams: 12/24/21 21:45 12/24/21 21:45 Orders (Tests/Meds): ED MEDICATIONS Generic Name Dose Route Start Last Admin Trade Name Freq PRN Reason Stop Dose Admin Azithromycin 500 mg/ Sodium 250 mls @ 250 mls/hr 12/24/21 21:45 12/24/21 22:13 Chloride IV 01/07/22 21:44 250 mls/hr Q24H GHAZAL Administration Ceftriaxone Sodium 1 gm/ 50 mls @ 100 mls/hr 12/24/21 21:45 12/24/21 21:57 Sodium Chloride IV 01/07/22 21:44 100 mls/hr Q24H GHAZAL Administration Discontinued Medications Generic Name Dose Route Start Last Admin Trade Name Freq PRN Reason Stop Dose Admin Methylprednisolone Sodium Succinate 125 mg 12/24/21 21:45 12/24/21 21:57 Methylprednisolone Sod Succ 125mg Vial IV 12/24/21 21:46 125 mg ONCE ONE Administration ORDERS Category Date Time Status Rapid PCR Covid and Flu A/B Stat Lab 12/24/21 22:39 Received ECG Request by /Nse Stat Y 12/24/21 21:45 Ordered - Radiology Data #1 Image(s): Chest Image Reviewed: Yes I reviewed the patient's radiology results, Yes I have reviewed radiologist's interpretation Preliminary Findings: Normal/NAD IMPRESSION: Chronic changes without acute process - ECG Data Tracing #1 Sinus rhythm with ventricular rate of 70 bpm. QRS
--- NOTE | 2021-12-24 21:52 | PC.NURSE ---
was asked about blood culture and no new orders @ this time
[2021-12-24 21:57] LABS: Basophils # 0.1 K/mm3 (0-0.2); Basophils % 1.4 % (0.1-2.0); Eosinophils # 0.1 K/mm3 (0.0-0.4); Eosinophils % 1.5 % (0.1-12.0); Hematocrit 36.9 % (37.0-47.0); Hemoglobin 11.9 g/dL (12.2-16.2); Lymphocytes # 0.9 K/mm3 (0.7-4.5); Mean Corpuscular HGB Conc 32.3 g/dL (31.8-35.4); Mean Corpuscular Hemoglobin 32.7 pg (27.0-31.2); Mean Corpuscular Volume 101.3 fl (81-99); Mean Platelet Volume 7.4 fl (7.4-10.4); Monocytes # 0.2 K/mm3 (0.1-1.0); Monocytes % 4.5 % (1.7-9.3); Neutrophils # 3.3 K/mm3 (1.8-7.8); Neutrophils % 73.5 % (37.0-80.0); Platelet Count 435 K/mm3 (142-424); Red Blood Count 3.64 M/mm3 (4.20-5.40); Red Cell Distribution Width 14.2 % (11.5-17.5); White Blood Count 4.5 K/mm3 (4.8-10.8)
[2021-12-24 21:59] LABS: Chloride 105 mmol/L (98-107)
[2021-12-24 22:00] LABS: Sodium 144 mmol/L (136-145)
--- NOTE | 2021-12-24 22:00 | PC.NURSE ---
BLANKET GIVEN TO PATIENT, CALL LIGHT WITHIN REACH
[2021-12-24 22:01] LABS: Potassium 3.6 mmoL/L (3.5-5.1)
[2021-12-24 22:02] LABS: Alanine Aminotransferase 17 U/L (12-78); Alkaline Phosphatase 64 U/L (38-126); Anion Gap 6.6 mEq/L (5-15); Aspartate Amino Transferase 35 U/L (14-36); Bilirubin,Total 0.3 mg/dl (0.2-1.3); Blood Urea Nitrogen 16 mg/dl (7-17); Calcium 9.4 mg/dl (8.4-10.2); Carbon Dioxide 36 mmol/L (22.0-30.0); Creatinine Clearance Estimated 71 mL/min (50-200); Estimated Glomerular Filt Rate 86 ml/min (>60); GFR (African American) 104 ML/MIN (>60); Glucose 119 mg/dl (74-100)
[2021-12-24 22:04] LABS: Albumin/Globulin Ratio 1.7 (1.1-1.8); Globulin 2.3 g/dL (1.3-3.2); Total Protein,Serum 6.3 g/dl (6.3-8.2)
[2021-12-24 22:20] LABS: VBG Base Excess 5.4 mmol/L (-2.4-2.3); VBG HCO3 30.7 mmol/L (23-30); VBG Oxygen Saturation 85.4 % (50-70); VBG PH 7.37 mmol/L (7.31-7.41); VBG PO2 48.6 mmol/L (28-40); VBG Total CO2 32.4 mmol/L (23-27)
[2021-12-24 22:23] LABS: VBG PCO2 54.3 mmol/L (35-51)
[2021-12-24 22:47] LABS: Coronavirus 19, PCR Not Detected (NotDetected); Influenza A, PCR Not Detected (NotDetected); Influenza B, PCR Not Detected (NotDetected)
--- NOTE | 2021-12-24 23:04 | PC.NURSE ---
unable to monitor vitals, patient refuses to keep blood pressure cuff and pulse ox on
[2021-12-24 23:06] VITALS: BP 134/75; PULSE 70; RESP 20; TEMP 36.8; O2SAT 98
== END 2021-12-24 23:14 | disposition home or self-care (01) ==
PROVIDERS: Emergency Provider Emergency Medicine; PCP Emergency Medicine
DX: J44.1 Chronic obstructive pulmonary disease with (acute) exacerbation (principal); R00.2 Palpitations; M51.26 Other intervertebral disc displacement, lumbar region; R42 Dizziness and giddiness; R79.89 Other specified abnormal findings of blood chemistry; Z20.822 Contact with and (suspected) exposure to COVID-19; Z86.16 Personal history of COVID-19; I10 Essential (primary) hypertension; R01.1 Cardiac murmur, unspecified; I72.9 Aneurysm of unspecified site; I49.9 Cardiac arrhythmia, unspecified; I25.10 Atherosclerotic heart disease of native coronary artery without angina pectoris; I25.2 Old myocardial infarction; I74.09 Other arterial embolism and thrombosis of abdominal aorta; I35.0 Nonrheumatic aortic (valve) stenosis; E78.5 Hyperlipidemia, unspecified; H69.93 Unspecified Eustachian tube disorder, bilateral; K82.9 Disease of gallbladder, unspecified; M54.10 Radiculopathy, site unspecified; M79.7 Fibromyalgia; M19.90 Unspecified osteoarthritis, unspecified site; E55.9 Vitamin D deficiency, unspecified; F17.210 Nicotine dependence, cigarettes, uncomplicated; Z79.02 Long term (current) use of antithrombotics/antiplatelets; Z79.51 Long term (current) use of inhaled steroids; Z79.52 Long term (current) use of systemic steroids; Z79.82 Long term (current) use of aspirin; Z88.0 Allergy status to penicillin; Z88.1 Allergy status to other antibiotic agents; Z88.3 Allergy status to other anti-infective agents; Z88.8 Allergy status to other drugs, medicaments and biological substances; Z86.14 Personal history of Methicillin resistant Staphylococcus aureus infection
CPT/HCPCS: 71045; 80053; 82803; 85025; 93005; 96374; 96375; 99285; C9803; J0456; J0696; U0003; U0005

== ENCOUNTER 2022-01-03 21:15 | Inpatient (IN) | payer MEDICAID, SELFPAY ==
--- NOTE | 2022-01-03 21:14 | ECG_ITS ---
APPROVED REPORT Exam: Resting ECG HR:75 bpm ECG Measurements Heart Rate 75 AXES OK 151 P 80 QRSd 89 QRS 83 QT 336 T 71 QTc 365 Conclusion SINUS RHYTHM POSSIBLE RIGHT VENTRICULAR CONDUCTION DELAY [RSR (QR) IN V1/V2] SEPTAL MYOCARDIAL INFARCTION , PROBABLY OLD [40+ ms Q WAVE IN V1/V2] ABNORMAL ECG UNCONFIRMED REPORT Electronically signed by : Tao Mcgowan MD 01/07/2022 11:22:00
[2022-01-03 21:15] VITALS: BP 168/74; PULSE 75; RESP 26; TEMP 37.4; O2SAT 93; BMI 19.5
[2022-01-03 21:25] LABS: ABG Base Excess 5.7 mmol/L (-2.4-2.3); ABG HCO3 34.2 mmhg (22.0-26.0); ABG Oxygen Saturation 92 % (90-100); ABG PO2 73.1 mmhg (80-100); ABG TCO2 37.1 mmhg (23-27)
--- NOTE | 2022-01-03 21:33 | XR_ITS ---
PROCEDURE INFORMATION: Exam: XR Chest Exam date and time: 01/03/2022 9:46 PM Age: 61 years old Clinical indication: Shortness of breath; Additional info: SOA TECHNIQUE: Imaging protocol: Radiologic exam of the chest. Views: 1 view. COMPARISON: CR XR CHEST PORTABLE 12/24/2021 10:08 PM FINDINGS: Lungs: Postsurgical changes of the left upper lung. Pleural spaces: Unremarkable. No pleural effusion. No pneumothorax. Heart/Mediastinum: Enlarged pulmonary arteries likely represent chronic pulmonary arterial hypertension. Vasculature: Vascular calcifications. Bones/joints: Unremarkable. IMPRESSION: No acute findings.
[2022-01-03 21:39] VITALS: BP 105/60; PULSE 72; RESP 18; O2SAT 96
[2022-01-03 21:40] LABS: Coronavirus 19, PCR Not Detected (NotDetected); Influenza A, PCR Not Detected (NotDetected); Influenza B, PCR Not Detected (NotDetected); Microscopic, Urine URINE MICROSCOPIC (MICROSCOPIC)
[2022-01-03 21:41] LABS: Basophils # 0.1 K/mm3 (0-0.2); Basophils % 0.8 % (0.1-2.0); Eosinophils # 0.4 K/mm3 (0.0-0.4); Eosinophils % 2.7 % (0.1-12.0); Hematocrit 37.5 % (37.0-47.0); Hemoglobin 12.6 g/dL (12.2-16.2); Lymphocytes # 0.9 K/mm3 (0.7-4.5); Lymphocytes % 6.8 % (10-50); Mean Corpuscular HGB Conc 33.7 g/dL (31.8-35.4); Mean Corpuscular Hemoglobin 35.7 pg (27.0-31.2); Mean Corpuscular Volume 105.9 fl (81-99); Mean Platelet Volume 7.8 fl (7.4-10.4); Monocytes % 7.5 % (1.7-9.3); Neutrophils # 10.8 K/mm3 (1.8-7.8); Neutrophils % 82.2 % (37.0-80.0); Platelet Count 465 K/mm3 (142-424); Red Blood Count 3.54 M/mm3 (4.20-5.40); Red Cell Distribution Width 14.1 % (11.5-17.5); White Blood Count 13.1 K/mm3 (4.8-10.8)
[2022-01-03 21:44] LABS: Allen's Test Y; Oxygen 2 %; Source Right Radial
[2022-01-03 21:45] LABS: ABG PCO2 95.7 mmhg (35.0-45.0); ABG PH 7.17 mmol/L (7.35-7.45)
[2022-01-03 21:47] LABS: Alanine Aminotransferase 16 U/L (12-78); Albumin Level 3.9 g/dl (3.5-5.0); Albumin/Globulin Ratio 1.5 (1.1-1.8); Alkaline Phosphatase 75 U/L (38-126); Aspartate Amino Transferase 28 U/L (14-36); Bilirubin,Total 0.3 mg/dl (0.2-1.3); Blood Urea Nitrogen 15 mg/dl (7-17); Calcium 8.9 mg/dl (8.4-10.2); Chloride 98 mmol/L (98-107); Creatinine Clearance Estimated 68 mL/min (50-200); Estimated Glomerular Filt Rate 86 ml/min (>60); GFR (African American) 104 ML/MIN (>60); Globulin 2.6 g/dL (1.3-3.2); Glucose 165 mg/dl (74-100); Lactic Acid 0.5 mmol/L (0.7-2.1); Potassium 3.6 mmoL/L (3.5-5.1); Sodium 139 mmol/L (136-145); Total Protein,Serum 6.5 g/dl (6.3-8.2)
[2022-01-03 21:48] LABS: Appearance,Urine CLEAR (Clear); Bilirubin,Urine Negative (Negative); Blood, Urine Negative (Negative); Color,Urine YELLOW (Yellow); Glucose,Urine (UA) Negative (Negative); Ketones,Urine Negative (Negative); Leukocyte Esterase,Urine Negative (Negative); Nitrate,Urine Negative (Negative); Protein,Urine 1+ (Negative); Specific Gravity, Urine >= 1.030 (1.005-1.030); Urobilinogen,Urine 0.2 EU/dl (0.2)
[2022-01-03 21:52] LABS: C-Reactive Protein 31.8 mg/L (0-4)
[2022-01-03 21:55] LABS: Anion Gap 5.6 mEq/L (5-15); Carbon Dioxide 39 mmol/L (22.0-30.0)
[2022-01-03 21:59] LABS: Squamous Epithelial Cell,Urine Occasional #/hpf (0-5); WBC,Urine Occasional #/hpf (0-3)
[2022-01-03 22:00] VITALS: BP 109/62; PULSE 71; RESP 14; O2SAT 94
--- NOTE | 2022-01-03 22:05 | HMH.EDSOB ---
Discharge Plan Disposition Chief Complaint: Shortness of Breath/Dyspnea Clinical Impressions Clinical Impression: COPD exacerbation, Tobacco use disorder, Low body mass index (BMI), Respiratory failure with hypercapnia, Severe sepsis with acute organ dysfunction Discharge ED Provider: Justen Briggs Resp/SOB HPI General Chief Complaint: Shortness of Breath/Dyspnea Stated Complaint: SOA Time Seen by Provider: 01/03/22 22:06 Mode of Arrival: Ambulatory Source of Information: EMS and Medical Record Limitations: Altered Mental Status Description of Symptoms (Recalled from ER Triage Doc. by RN): PER EMS called out for SOA that started today. History of Present Illness by ems fron home with obtunded with hx of copd MD Complaint: shortness of breath Onset (ago): unknown Severity: similar to previous episodes Known history of: COPD and congestive heart failure Treatment prior to arrival: oxygen and bronchodilator Related Data Home oxygen amount: 2 liters Home Medications Medication Instructions Recorded Confirmed aspirin 81 mg tablet,delayed 81 mg PO DAILY HEART HEALTH 02/08/19 12/16/21 release (Adult Low Dose Aspirin) ergocalciferol (vitamin D2) 1,250 1,250 unit PO WEEKLY Supplement 09/09/21 12/16/21 mcg (50,000 unit) capsule escitalopram oxalate 20 mg tablet 20 mg PO DAILY mood 09/09/21 12/16/21 tiotropium bromide 1.25 2 puffs inhalation DAILY COPD 09/10/21 12/16/21 mcg/actuation mist for inhalation budesonide 160 mcg-glycopyr 9 2 inh inhalation BID UNKNOWN 10/09/21 12/16/21 mcg-formot 4.8 mcg/actuation HFA inhaler cetirizine 10 mg tablet 10 mg PO DAILY Allergy symptoms 10/09/21 12/16/21 clopidogrel 75 mg tablet 75 mg PO DAILY Heart disease 10/09/21 12/16/21 furosemide 20 mg tablet 20 mg PO Q2D Edema 10/09/21 12/16/21 nicotine 21 mg/24 hr daily 21 mg transdermal DAILY SMOKING 10/09/21 12/16/21 transdermal patch CESSATION pravastatin 40 mg tablet 40 mg PO HS Cholesterol 10/09/21 12/16/21 albuterol sulfate 90 mcg/actuation See Rx Instructions .Route 01/03/22 aerosol inhaler (ProAir HFA) .COMPLEX Breathing problems benzonatate 200 mg capsule 200 mg PO TID . 01/03/22 buspirone 10 mg tablet See Rx Instructions .Route 01/03/22 .COMPLEX . ipratropium 0.5 mg-albuterol 3 mg See Rx Instructions .Route 01/03/22 (2.5 mg base)/3 mL nebulization .COMPLEX Breathing problems soln Previous Rx's Medication Instructions Recorded clonazepam 0.5 mg tablet 0.5 mg PO BID Anxiety #60 tabs 12/16/21 gabapentin 800 mg tablet 800 mg PO QID Pain #120 tabs 12/16/21 oxycodone 10 mg tablet 10 mg PO QID MODERATE TO SEVERE 12/16/21 PAIN #120 tabs cholecalciferol (vitamin D3) 25 25 mcg PO DAILY Supplement #90 tabs 12/18/21 mcg (1,000 unit) tablet metoprolol succinate 100 mg 100 mg PO DAILY Hypertension #90 12/18/21 tablet,extended release 24 hr tabs Allergies Allergy/AdvReac Type Severity Reaction Status Date / Time cefdinir [CEFDINIR] Allergy Unknown I-ITCHING Verified 12/16/21 13:26 amoxicillin [From Augmentin] Allergy Verified 12/16/21 13:26 clavulanic acid Allergy Verified 12/16/21 13:26 [From Augmentin] [facility] Medical History (Updated 01/03/22 @ 23:37 by Justen Briggs MD) Anxiety COPD (chronic obstructive pulmonary disease) Dizziness Dysfunction of eustachian tube Dyspnea Emphysema of lung Near syncope Old myocardial infarction Palpitations Vitamin D deficiency (~04/20/18) Social History Smoking Status: Current every day smoker tobacco type: cigarettes packs per day: 2 second hand exposure: Yes alcohol intake: current substance use type: marijuana current occupational status: unemployed and disabled household members: family housing: house current occupational exposures/hazards: No caffeine: Yes ROS Obtained: Yes unobtainable due to mental status Physical Exam General General appearance: obtunded Head Head exam: normocephalic Eye Eye exam: Prese
[2022-01-03 22:06] LABS: Erythrocyte Sedimentation Rate 18 mm/hr (0-30); Procalcitonin 0.036 ng/mL (0.0-2.0)
[2022-01-03 22:13] LABS: NT Pro Brain Natriuretic Pep. 2010 pg/mL (0-125)
[2022-01-03 22:30] VITALS: BP 100/53; PULSE 67; RESP 13; O2SAT 93
[2022-01-03 23:00] VITALS: BP 97/54; PULSE 65; O2SAT 94
--- NOTE | 2022-01-03 23:21 | PC.NURSE ---
called house for bed assignment
--- NOTE | 2022-01-03 23:41 | PC.NURSE ---
This RN s/w pt's daughter Myra for an update on POC. Set up password of [email or web address] . Let daughter know pt would be boarding in ER for a short time d/t bed assignment availability. Daughter states she will call for an update in AM.
[2022-01-03 23:50] LABS: Troponin I < 0.01 ng/ml (0.00-0.034)
[2022-01-04] VITALS (22 sets, daily range): BP systolic 113–154; BP diastolic 58–79; PULSE 57–120; RESP 15–30; TEMP 36.3–37.1; O2SAT 92–100
--- NOTE | 2022-01-04 02:06 | PC.NURSE ---
unable to complete past medical/family, surgical, social hx at this time due to pt very lethargic, increased co2, bipap in place, and pt confused (oriented to self only)
[2022-01-04 03:35] LABS: ABG Base Excess 9.6 mmol/L (-2.4-2.3); ABG HCO3 36.1 mmhg (22.0-26.0); ABG Oxygen Saturation 94 % (90-100); ABG PH 7.29 mmol/L (7.35-7.45); ABG PO2 73.6 mmhg (80-100); ABG TCO2 38.5 mmhg (23-27)
[2022-01-04 03:38] LABS: Allen's Test Y; Oxygen 35 %; Source Right Radial
[2022-01-04 03:39] LABS: ABG PCO2 76.5 mmhg (35.0-45.0)
--- NOTE | 2022-01-04 05:05 | PC.NURSE ---
Unable to obtain weight due to patient being a bed with no bed scale. RN Aware.
[2022-01-04 07:36] LABS: Basophils % 0.3 % (0.1-2.0); Eosinophils # 0.1 K/mm3 (0.0-0.4); Eosinophils % 1.5 % (0.1-12.0); Hematocrit 36.1 % (37.0-47.0); Hemoglobin 11.6 g/dL (12.2-16.2); Lymphocytes # 0.3 K/mm3 (0.7-4.5); Lymphocytes % 5.2 % (10-50); Mean Corpuscular HGB Conc 32.1 g/dL (31.8-35.4); Mean Corpuscular Hemoglobin 33.6 pg (27.0-31.2); Mean Corpuscular Volume 104.9 fl (81-99); Mean Platelet Volume 7.8 fl (7.4-10.4); Monocytes # 0.1 K/mm3 (0.1-1.0); Monocytes % 1.6 % (1.7-9.3); Neutrophils # 4.7 K/mm3 (1.8-7.8); Neutrophils % 91.5 % (37.0-80.0); Platelet Count 253 K/mm3 (142-424); Red Blood Count 3.44 M/mm3 (4.20-5.40); Red Cell Distribution Width 14.1 % (11.5-17.5); White Blood Count 5.2 K/mm3 (4.8-10.8)
--- NOTE | 2022-01-04 07:37 | P.CONPHA_ITS ---
[facility] VTE Monitoring Patient Demographics Admission date: 01/04/22 Report Date: 01/04/22 Time: 07:37 Patient Allergies cefdinir [CEFDINIR] Allergy (Unknown, Verified 12/16/21 13:26) I-ITCHING amoxicillin [From Augmentin] Allergy (Verified 12/16/21 13:26) clavulanic acid [From Augmentin] Allergy (Verified 12/16/21 13:26) Height: 1.6 m Weight: 49.895 kg Current Active Problems (Updated 01/03/22 @ 23:37 by Justen Briggs MD) Low body mass index (BMI) (Acute) Respiratory failure with hypercapnia (Acute) Severe sepsis with acute organ dysfunction (Acute) COPD exacerbation (Acute) Tobacco use disorder (Acute) VTE Risk Labs: VTE Related Lab Results Hgb 12.6 g/dL (12.2-16.2) 01/03/22 21:18 Hct 37.5 % (37.0-47.0) 01/03/22 21:18 Plt Count 465 K/mm3 (142-424) H 01/03/22 21:18 BUN 15 mg/dl (7-17) 01/03/22 21:18 Creatinine 0.70 mg/dl (0.52-1.04) 01/03/22 21:18 Estimated Creat Clear 68 mL/min (50-200) 01/03/22 21:18 Prophylaxis VTE Prophylaxis Ordered?: Yes Types of VTE Prophylaxis: TEDS Knee High Location of Applied Device: Bilateral Lower Extremeties
[2022-01-04 07:40] LABS: MANUAL DIFFERENTIAL MANUAL DIFFERENTIAL (MANUAL DIFF)
[2022-01-04 07:56] LABS: Anion Gap 4.4 mEq/L (5-15); Blood Urea Nitrogen 18 mg/dl (7-17); Calcium 8.4 mg/dl (8.4-10.2); Carbon Dioxide 37 mmol/L (22.0-30.0); Chloride 99 mmol/L (98-107); Creatinine Clearance Estimated 80 mL/min (50-200); Estimated Glomerular Filt Rate 102 ml/min (>60); GFR (African American) 124 ML/MIN (>60); Glucose 164 mg/dl (74-100); Magnesium 1.8 mg/dl (1.6-2.3); Potassium 4.4 mmoL/L (3.5-5.1); Sodium 136 mmol/L (136-145)
[2022-01-04 08:14] LABS: Lymphocytes % 3 % (10-50); Monocytes % 1 % (2-9); Neutrophils % 96 % (42-76); Platelet Estimate Normal; RBC Morphology Normal; Total Cells Counted 100
--- NOTE | 2022-01-04 09:38 | EXP.PULM.CON ---
History of Present Illness History of present illness: Ms. Wood is a 61-year-old female current smoker greater than [id number] smoking history of COPD on inhaler therapy presented to the hospital with worsening respiratory distress cough productive phlegm and altered mentation. Dyspnea patient admits current worsening respiratory symptoms for the last 5 to 7 days. Dyspnea worsens exertion, relieved by taking rest. Admits compliance with her inhalers PFSH [facility] Medical History (Updated 01/03/22 @ 23:37 by Justen Briggs MD) Anxiety COPD (chronic obstructive pulmonary disease) Dizziness Dysfunction of eustachian tube Dyspnea Emphysema of lung Near syncope Old myocardial infarction Palpitations Vitamin D deficiency (~04/20/18) Social History (Updated 01/03/22 @ 23:37 by Justen Briggs MD) Smoking Status: Current every day smoker tobacco type: cigarettes packs per day: 2 second hand exposure: Yes alcohol intake: current substance use type: marijuana current occupational status: unemployed and disabled Travel in the last 8 weeks: None household members: family housing: house current occupational exposures/hazards: No caffeine: Yes Review of Systems Constitutional Constitutional: Reports anorexia, Reports body ache(s), Reports fatigue and Reports headache(s) Eyes Eyes: Denies eye discharge, Denies dry eyes, Denies irritation and Denies itchy eyes ENT Ears, Nose, Mouth, and Throat: Denies epistaxis, Denies facial pain, Reports headache(s), Denies lip swelling and Denies throat swelling *Cardiovascular Cardiovascular: Reports dyspnea and Reports dyspnea on exertion *Respiratory Respiratory: Reports chest congestion, Reports cough, Reports dyspnea, Reports dyspnea on exertion, Reports excessive phlegm production and Reports wheezing *Gastrointestinal Gastrointestinal: Denies abdominal pain, Denies belching and Denies cramping *Musculoskeletal Musculoskeletal: Reports muscle weakness, Reports myalgias, Denies numbness and Reports other (No small joint swelling or Pain) *Neurologic Neurologic: Reports headache(s) and Denies numbness Psychiatric Psychiatric: Denies homicidal ideation and Denies suicidal ideation Endocrine Endocrine: Reports fatigue and Denies heat intolerance Hematologic/Lymphatic Hematologic/Lymphatic: Denies easy bleeding and Denies lymphadenopathy Allergic/Immunologic Allergic/Immunologic: Denies itchy eyes, Denies lip swelling, Denies throat swelling and Reports wheezing Pulmonology Exam Inpatient Vital signs and Labs for Last 24 Hours: Temp Pulse Resp BP Pulse Ox FiO2 97.9 F 64 17 118/63 99 35 01/04/22 04:00 01/04/22 08:00 01/04/22 08:00 01/04/22 08:00 01/04/22 08:00 01/04/22 08:00 Laboratory Results - last 24 hr 01/03/22 21:18: WBC 13.1 H, RBC 3.54 L, Hgb 12.6, Hct 37.5, MCV 105.9 H, MCH 35.7 H, MCHC 33.7, RDW 14.1, Plt Count 465 H, MPV 7.8, Neut % (Auto) 82.2 H, Lymph % (Auto) 6.8 L, [place] % (Auto) 7.5, Eos % (Auto) 2.7, Baso % (Auto) 0.8, Neut # (Auto) 10.8 H, Lymph # (Auto) 0.9, [place] # (Auto) 1.0, Eos # (Auto) 0.4, Baso # (Auto) 0.1, ESR 18 01/03/22 21:18: Sodium 139, Potassium 3.6, Chloride 98, Carbon Dioxide 39 H, Anion Gap 5.6, BUN 15, Creatinine 0.70, Estimated Creat Clear 68, Estimated GFR 86, Est GFR ( Amer) 104, Glucose 165 H, Calcium 8.9, Total Bilirubin 0.3, AST 28, ALT 16, Alkaline Phosphatase 75, C-Reactive Protein 31.8 H, Total Protein 6.5, Albumin 3.9, Globulin 2.6, Albumin/Globulin Ratio 1.5, Procalcitonin 0.036 01/03/22 21:18: SARS-CoV-2 (PCR) Not detected, Influenza A Untype (PCR) Not detected, Influenza Type B (PCR) Not detected 01/03/22 21:18: Urine Color Yellow, Urine Appearance Clear, Urine pH 6.0, Ur Specific [place] >= 1.030, Urine Protein 1+, Urine Glucose (UA) Negative, Urine Ketones Negative, Urine Blood Negative, Urine Nitrate Negative, Urine Bilirubin Negative, Urine Urobilinogen 0.2, Ur Leukocyte Esterase Negative, Urine WBC Occasional, U
--- NOTE | 2022-01-04 10:38 | HMH.PHAINT1 ---
Pharmacy Intervention Comments: MEDICATION RECONCILIATION COMPLETED ON PATIENT USING EXTERNAL FILL HISTORY FROM PHARMACY. -RICHIE ROSARIO, HANNAHD
--- NOTE | 2022-01-04 13:50 | PC.NURSE ---
Pt taken off BiPAP and placed on 3L NC.
--- NOTE | 2022-01-04 16:35 | EXP.HP ---
History of Present Illness *Admission Date: 01/04/22 *History of present illness: 61 yo female admitted through ER with progressive dyspnea and mental status changes. Currently on bipap and pulmonary evaluation planned for this morning. [facility] Medical History (Updated 01/03/22 @ 23:37 by Justen Briggs MD) Anxiety COPD (chronic obstructive pulmonary disease) Dizziness Dysfunction of eustachian tube Dyspnea Emphysema of lung Near syncope Old myocardial infarction Palpitations Vitamin D deficiency (~04/20/18) Social History (Updated 01/03/22 @ 23:37 by Justen Briggs MD) Smoking Status: Current every day smoker tobacco type: cigarettes packs per day: 2 second hand exposure: Yes alcohol intake: current substance use type: marijuana current occupational status: unemployed and disabled Travel in the last 8 weeks: None household members: family housing: house current occupational exposures/hazards: No caffeine: Yes Review of Systems Review of Systems Review of systems:: unable to obtain Constitutional Constitutional: Reports headache(s) ENT Ears, Nose, Mouth, and Throat: Reports headache(s) *Musculoskeletal Musculoskeletal: Denies numbness *Neurologic Neurologic: Reports headache(s) and Denies numbness Meds Home Medications and Allergies Home Medications Medication Instructions Recorded Confirmed Type aspirin 81 mg tablet,delayed 81 mg PO DAILY HEART HEALTH 02/08/19 01/04/22 History release (Adult Low Dose Aspirin) ergocalciferol (vitamin D2) 1,250 1,250 unit PO WEEKLY Supplement 09/09/21 01/04/22 History mcg (50,000 unit) capsule escitalopram oxalate 20 mg tablet 20 mg PO DAILY mood 09/09/21 01/04/22 History cetirizine 10 mg tablet 10 mg PO DAILY Allergy symptoms 10/09/21 01/04/22 History clopidogrel 75 mg tablet (Plavix) 75 mg PO DAILY [employer] 10/09/21 01/04/22 History pravastatin 40 mg tablet 40 mg PO HS Cholesterol 10/09/21 01/04/22 History clonazepam 0.5 mg tablet 0.5 mg PO BID Anxiety #60 tabs 12/16/21 01/04/22 Rx gabapentin 800 mg tablet 800 mg PO QID Pain #120 tabs 12/16/21 01/04/22 Rx oxycodone 10 mg tablet 10 mg PO QID MODERATE TO SEVERE 12/16/21 01/04/22 Rx PAIN #120 tabs cholecalciferol (vitamin D3) 25 25 mcg PO DAILY Supplement #90 tabs 12/18/21 01/04/22 Rx mcg (1,000 unit) tablet metoprolol succinate 100 mg 100 mg PO DAILY Hypertension #90 12/18/21 01/04/22 Rx tablet,extended release 24 hr tabs albuterol sulfate 90 mcg/actuation 2 puff inhalation Q4HP PRN 01/03/22 01/04/22 History aerosol inhaler (ProAir HFA) Shortness Of Breath buspirone 10 mg tablet 10 mg PO BID Anxiety 01/03/22 01/04/22 History ipratropium 0.5 mg-albuterol 3 mg 3 ml inhalation TID Breathing 01/03/22 01/04/22 History (2.5 mg base)/3 mL nebulization problems soln budesonide 160 mcg-glycopyr 9 2 puff inhalation BID Breathing 01/04/22 01/04/22 History mcg-formot 4.8 mcg/actuation HFA problems inhaler (Breztri Aerosphere) New Prescriptions to Start Prescriptions: Allergies Allergy/AdvReac Type Severity Reaction Status Date / Time cefdinir [CEFDINIR] Allergy Unknown I-ITCHING Verified 12/16/21 13:26 amoxicillin [From Augmentin] Allergy Verified 12/16/21 13:26 clavulanic acid Allergy Verified 12/16/21 13:26 [From Augmentin] Exam Data for Last 24 hours Vital signs and Labs for Last 24 Hours: Temp Pulse Resp BP Pulse Ox FiO2 97.4 F L 77 15 154/58 H 98 35 01/04/22 08:00 01/04/22 16:00 01/04/22 16:00 01/04/22 16:00 01/04/22 16:00 01/04/22 12:00 Laboratory Results - last 24 hr 01/03/22 21:18: WBC 13.1 H, RBC 3.54 L, Hgb 12.6, Hct 37.5, MCV 105.9 H, MCH 35.7 H, MCHC 33.7, RDW 14.1, Plt Count 465 H, MPV 7.8, Neut % (Auto) 82.2 H, Lymph % (Auto) 6.8 L, [place] % (Auto) 7.5, Eos % (Auto) 2.7, Baso % (Auto) 0.8, Neut # (Auto) 10.8 H, Lymph # (Auto) 0.9, [place] # (Auto) 1.0, Eos # (Auto) 0.4, Baso # (Auto) 0.1, ESR 18 01/03/22 21:18: Sod
--- NOTE | 2022-01-04 19:30 | PC.NURSE ---
got pt up to bsc, changed bed out from non-weigh bed to weigh bed so pt can have a bed with a bed alarm, placed falling star on pt's door, got pt back to bed and put bed alarm on in zone 2, placed warm blankets on pt per request, yellow fall risk band and nonskid socks on pt, call [employer] within reach
--- NOTE | 2022-01-04 22:44 | PC.NURSE ---
Pt refused to wear bipap. Pt stated she has a lawsuit against cpap and bipap and she knows what she needs and doesnt need
[2022-01-05] VITALS (9 sets, daily range): BP systolic 120–140; BP diastolic 57–76; PULSE 66–92; RESP 14–20; TEMP 36.5–36.9; O2SAT 93–100; BMI 23.4
--- NOTE | 2022-01-05 09:43 | EXP.PULM.PN ---
Subjective *Date: 01/15/22 *Time: 14:26 Interval history: Patient admits continued improvement in her symptoms Pulmonology Exam Inpatient Vital signs and Labs for Last 24 Hours: Temp Pulse Resp BP Pulse Ox FiO2 98.5 F 75 14 124/57 L 100 35 01/05/22 08:00 01/05/22 06:14 01/05/22 06:00 01/05/22 06:00 01/05/22 06:14 01/04/22 22:05 I & O for Labs for Last 24 Hours: Intake & Output 01/02/22 01/03/22 01/04/22 01/05/22 23:59 23:59 23:59 23:59 Intake Total 781 / 781 Output Total 975 / 975 100 / 100 Balance -194 / -194 -100 / -100 Weight 110 lb 110 lb 132 lb 5 oz Head: normocephalic and atraumatic ENT: normal exam, normal oropharynx and mucous membranes moist Neck: normal inspection and full ROM Respiratory: accessory muscle use, respiratory distress, wheezes, crackles, normal respiratory effort and able to speak in complete sentences Cardiac: S1/S2 and radial pulses present GI: soft, distention, tenderness or guarding Rectal (female): deferred (female): deferred Skin: intact, cyanosis or jaundice Neuro: alert, awake and oriented x 3 Extremities: normal inspection, clubbing or cyanosis Psychiatric: normal affect and cooperative Assessment and Plan Assessment and plan all Dx Plan of Treatment: #COPD exacerbation: #Acute hypoxic hypercarbic respiratory failure: #Community-acquired pneumonia: 61-year-old female current smoker greater than [id number] smoke history. Carries a diagnosis of COPD. Most recent exacerbation in September 2021. Presented to the hospital worsening respiratory distress along with altered mentation ABG on admission personally reviewed, severe hypercarbic respiratory failure pH of 7.17, PCO2 of 95.7. Slightly improved today with pH of 7.29, PCO2 76.5. Chest x-ray on admission personally reviewed , bilateral hyperinflated lungs along with right lower lobe airspace disease. Also, right hilar node calcification and right upper lobe nodule, will follow as OP. Patient was initiated on methylprednisolone 40 every 6 hours, levofloxacin and DuoNebs every 6 hours scheduled. Blood cultures pending. Interval update: Patient respiratory status improved, weaned to nasal cannula. Significant improvement in respiratory status. No wheezing on auscultation. Alert and oriented x3. Weaned to room air this morning Plan: -Patient saturating 100% on 4 L, weaned to room air with saturations maintained at 95% unable -Initiate Trelegy 100 inhaler -DuoNebs every 6 hours on as-needed basis -Continue Levoflaxacin x 5 days -Wean methylprednisolone to prednisone 40 mg daily x5 days #Thank you for involving pulmonary in this patient care. We will follow the patient in 4 weeks with a full PFT and a 6-minute walk testing This Pulmonary noted was changed to draft status (and was resigned today) due to a technical error in the EMR with physician examination not being listed (and also listed wrong, as all selections are reported as positive irrespective of the selection as being present) ) in the final signed notes. Not all noted errors may be corrected. Please call [facility] Medical records with any questions or concerns
--- NOTE | 2022-01-05 10:34 | PC.NURSE ---
Rounded on pt, cleaned and straightened room, pt to be discharged today. No needs voiced at this time.
--- NOTE | 2022-01-05 11:48 | PC.NURSE ---
Pt has repeatedly been asked to call for assistance when needing to get up as during her last admission, she fell. pt states she is agreeable to call for help, but pt still gets up out of the bed (setting off the alarms) and goes to the chair. or visa versa without assistance. staff will attempt to redirect pt again as needed and when appropriate.
--- NOTE | 2022-01-05 12:46 | EXP.DC.SUM ---
General Admission date:: 01/04/22 Discharge date: 01/05/22 HPI HPI HPI: 61 yo female admitted through ER with progressive dyspnea and mental status changes. Currently on bipap and pulmonary evaluation planned for this morning. Hospital Course Hospital Course Hospital Course: Pulm has seen and recommends: Assessment and plan all Dx Plan of Treatment: #COPD exacerbation: #Acute hypoxic hypercarbic respiratory failure: #Community-acquired pneumonia: 61-year-old female current smoker greater than [id number] smoke history.? Carries a diagnosis of COPD.? Most recent exacerbation in September 2021.? Presented to the hospital worsening respiratory distress along with altered mentation ABG on admission personally reviewed, severe hypercarbic respiratory failure pH of 7.17, PCO2 of 95.7.? Slightly improved today with pH of 7.29, PCO2 76.5. Chest x-ray on admission personally reviewed , bilateral hyperinflated lungs along with right lower lobe airspace disease.? Also, right hilar node calcification and right upper lobe nodule, will follow as OP. Patient was initiated on methylprednisolone 40 every 6 hours, levofloxacin and DuoNebs every 6 hours scheduled.? Blood cultures pending. Interval update: Patient respiratory status improved, weaned to nasal cannula.? Significant improvement in respiratory status.? No wheezing on auscultation.? Alert and oriented x3.? Weaned to room air this morning Plan: -Patient saturating 100% on 4 L, weaned to room air with saturations maintained at 95% unable -Initiate Trelegy 100 inhaler -DuoNebs every 6 hours on as-needed basis -Continue Levoflaxacin x 5 days -Wean methylprednisolone to prednisone 40 mg daily x5 days #Thank you for involving pulmonary in this patient care.? We will follow the patient in 4 weeks with a full PFT and a 6-minute walk testing Exam Data for Last 24 hours Vital signs and Labs for Last 24 Hours: Temp Pulse Resp BP Pulse Ox FiO2 98.5 F 74 20 120/76 98 35 01/05/22 08:00 01/05/22 10:50 01/05/22 08:00 01/05/22 08:00 01/05/22 10:50 01/04/22 22:05 I & O for Last 24 hours: Intake & Output 01/02/22 01/03/22 01/04/22 01/05/22 23:59 23:59 23:59 23:59 Intake Total 781 / 781 Output Total 975 / 975 350 / 350 Balance -194 / -194 -350 / -350 Weight 110 lb 110 lb 132 lb 5 oz Constitutional Constitutional: no acute distress *Routine HEENT Exam Head: Present normocephalic Eye: Present EOMI ENT: Present mucous membranes moist *Routine Neck Exam Neck: Present supple, full ROM and trachea midline *Routine Respiratory Exam Respiratory: Present decreased breath sounds; Absent accessory muscle use *Routine Cardiovascular Exam Cardiovascular: Present RRR *Routine Abdominal Exam Abdominal: Present soft and normoactive bowel sounds; Absent tenderness or firm *Routine Rectal Exam Patient deferred: visual exam *Routine Exam Patient deferred: external exam *Routine Extremities Exam Extremities: Present full ROM and pulses intact; Absent cyanosis or clubbing *Routine Skin Exam Skin: Present intact and dry; Absent cyanosis or erythema *Routine Neurological Exam Neurological: Present alert and oriented X3; Absent motor deficit Routine Psychiatric Exam Psychiatric: Present normal affect and normal thought process; Absent tactile hallucinations DS: Diagnosis Discharge Diagnosis (1) Respiratory failure with hypoxia and hypercapnia: Status: Acute (2) Acute exacerbation of chronic obstructive airways disease: Status: Acute Meds Home Medications and Allergies Home Medications Medication Instructions Recorded Confirmed Type aspirin 81 mg tablet,delayed 81 mg PO DAILY HEART HEALTH 02/08/19 01/04/22 History release (Adult Low Dose Aspirin) ergocalciferol (vitamin D2) 1,250 1,250 unit PO WEEKLY Supplement 09/09/21 01/04/22 History mcg (50,000 unit) capsule escitalopram oxalate 20 mg tablet 20 mg PO DAILY mood 09/09/21 01/04/22 History c
--- NOTE | 2022-01-05 14:12 | PC.NURSE ---
Spoke with Khloe at [facility] and they stated they would send a portable 02 tank to pt for d/c. Spoke with them @ [phone].
--- NOTE | 2022-01-08 13:46 | CARE MANAGER ---
Attempted to contact patient x2 related to hospital discharge. No answer. MERLIN Sam
== END 2022-01-05 14:23 | disposition home or self-care (01) | DRG 193 ==
LOC: ER 21:26 → 2ND 23:50
PROVIDERS: Admitting Provider Emergency Medicine; Emergency Provider Emergency Medicine; PCP Emergency Medicine; Visit Provider Emergency Medicine
DX: J18.9 Pneumonia, unspecified organism (principal); J96.21 Acute and chronic respiratory failure with hypoxia; J96.22 Acute and chronic respiratory failure with hypercapnia; Z99.81 Dependence on supplemental oxygen; F17.210 Nicotine dependence, cigarettes, uncomplicated; J43.9 Emphysema, unspecified; I25.2 Old myocardial infarction
CPT/HCPCS: 36415; 51702; 71045; 80048; 80053; 81001; 82803; 83605; 83735; 83880; 84145; 84484; 85007; 85025; 85651; 86140; 87040; 93005; 94640; 94660; 99291; C9803; J1956; U0003; U0005

== ENCOUNTER → 2022-02-10 14:55 | Outpatient (CLI) | payer MEDICAID, SELFPAY ==
[2022-02-10 19:43] LABS: Benzodiazepines Screen,Urine Negative ng/ml (<200)
[2022-02-10 19:44] LABS: Cannabinoid Screen,Urine Positive ng/ml (<50); Cocaine Screen,Urine Negative ng/ml (<300)
[2022-02-10 19:45] LABS: Methadone Screen,Urine Negative ng/ml (<300)
[2022-02-10 19:46] LABS: Opiate Screen,Urine Negative ng/ml (<300); Phencyclidine Screen,Urine Negative ng/ml (<25)
[2022-02-10 20:55] LABS: Amphetamine/Metha Screen,Urine Negative ng/ml (<1000)
[2022-02-10 20:56] LABS: Barbiturates Screen,Urine Negative ng/ml (<200)
== END ==
PROVIDERS: PCP Emergency Medicine; Visit Provider Emergency Medicine
DX: Z76.0 Encounter for issue of repeat prescription (principal); Z79.899 Other long term (current) drug therapy
CPT/HCPCS: 80305

== ENCOUNTER 2022-02-15 01:14 | Emergency (ER) | payer MEDICAID, SELFPAY ==
[2022-02-15] VITALS (11 sets, daily range): BP systolic 105–179; BP diastolic 60–92; PULSE 66–92; RESP 18–26; TEMP 36.4–36.6; O2SAT 91–98; BMI 16.1; BMI 21.4
--- NOTE | 2022-02-15 00:56 | CT_ITS ---
PROCEDURE INFORMATION: Exam: CT Head Without Contrast Exam date and time: 02/15/2022 1:15 AM Age: 61 years old Clinical indication: Injury or trauma; Fall; Additional info: Fall unresponsive agitated TECHNIQUE: Imaging protocol: Computed tomography of the head without contrast. Radiation optimization: All CT scans at this facility use at least one of these dose optimization techniques: automated exposure control; mA and/or kV adjustment per patient size (includes targeted exams where dose is matched to clinical indication); or iterative reconstruction. COMPARISON: CT HEAD/BRAIN WO CON 09/09/2021 2:10 PM FINDINGS: Limitations: Motion artifact - mild. Brain: Mild atrophy. No definite intracranial hemorrhage. No definite mass. Extensive ill-defined decreased attenuation within LEFT frontal, temporal, parietal regions with loss of coronado-white matter differentiation. 0.2 cm LEFT to RIGHT shift. Encephalomalacia within RIGHT occipital region. Cerebral ventricles: No hydrocephalus. Paranasal sinuses: No acute sinusitis. Mastoid air cells: Mild partial opacification of LEFT mastoid. Minimal partial opacification of RIGHT mastoid. Orbital cavities: Unremarkable as visualized. Bones/joints: No acute fracture. Soft tissues: Right scalp swelling. IMPRESSION: 1. Findings compatible with acute/subacute infarction in distribution LEFT middle cerebral artery. Recommend MRI. 2. No definite intracranial hemorrhage. 3. Mastoid disease.
--- NOTE | 2022-02-15 00:57 | XR_ITS ---
PROCEDURE INFORMATION: Exam: XR Chest Exam date and time: 02/15/2022 1:39 AM Age: 61 years old Clinical indication: Injury or trauma; Fall; Blunt trauma (contusions or hematomas); Additional info: SOA fall unresponsive agitated TECHNIQUE: Imaging protocol: Radiologic exam of the chest. Views: 1 view. COMPARISON: CR XR CHEST PORTABLE 01/03/2022 9:46 PM FINDINGS: Limitations: Radiographic technique - mild. Tubes, catheters and devices: Leads overlying chest. Leads overlying chest. Lungs: Hyperinflation. No definite consolidation. Postsurgical changes within LEFT upper lobe. Pleural spaces: No significant pleural effusion. No pneumothorax. Heart/Mediastinum: No cardiomegaly. Bones/joints: No displaced fracture. Soft tissues: Unremarkable. IMPRESSION: Chronic obstructive pulmonary disease.
--- NOTE | 2022-02-15 01:00 | PC.NURSE ---
Pt placed in C collar
--- NOTE | 2022-02-15 01:01 | CT_ITS ---
PROCEDURE INFORMATION: Exam: CT Cervical Spine Without Contrast Exam date and time: 02/15/2022 1:19 AM Age: 61 years old Clinical indication: Injury or trauma; Fall; Additional info: Fall unresponsive TECHNIQUE: Imaging protocol: Computed tomography of the cervical spine without contrast. Radiation optimization: All CT scans at this facility use at least one of these dose optimization techniques: automated exposure control; mA and/or kV adjustment per patient size (includes targeted exams where dose is matched to clinical indication); or iterative reconstruction. COMPARISON: [employer]OP MANAGER/O MRI-C-SPINE W/O 08/26/2015 1:07 PM; chest CT, 05/06/2021 FINDINGS: Limitations: Motion artifact - mild. Bones/joints: No acute fracture. Normal alignment. Straightening of cervical spine. Moderate to severe degenerative disc disease within mid to lower cervical spine. Mild indentation thecal sac/cord lower cervical spine. Mastoid air cells: Mild partial opacification of LEFT mastoid. Minimal partial opacification of RIGHT mastoid. Lungs: Emphysematous changes. Probable scarring within upper lobes, present on previous examination. Soft tissues: Unremarkable. IMPRESSION: 1. No fracture. 2. Mastoid disease.
--- NOTE | 2022-02-15 01:02 | XR_ITS ---
PROCEDURE INFORMATION: Exam: XR Pelvis Exam date and time: 02/15/2022 1:39 AM Age: 61 years old Clinical indication: Injury or trauma; Fall; Blunt trauma (contusions or hematomas); Bilateral; Pelvic region; Additional info: Fall unresponsive, agitated TECHNIQUE: Imaging protocol: Radiologic exam of the pelvis. Views: 1 or 2 view. COMPARISON: ABDPELW/O CT ABD PELVIS W/O CONTRAST 07/20/2016 10:15 AM FINDINGS: Tubes, catheters and devices: Surgical clips projected over LEFT hip. Bones/joints: No acute fracture. No dislocation. Soft tissues: Linear radiopaque density projected over midline lower pelvis. IMPRESSION: No fracture. If pain persists, consider MRI to exclude occult fracture/internal derangement.
--- NOTE | 2022-02-15 01:03 | PC.NURSE ---
0100: DR. PUCKETT AT BEDSIDE GIVING EMERGENT/VERBAL ORDERS. 0103: NOTIFIED JAMSHID SAMUEL OF XRAY ORDERS.
[2022-02-15 01:04] LABS: ABG Base Excess 6.2 mmol/L (-2.4-2.3); ABG HCO3 33.3 mmhg (22.0-26.0); ABG Oxygen Saturation 96 % (90-100); ABG PH 7.26 mmol/L (7.35-7.45); ABG PO2 88.8 mmhg (80-100); ABG TCO2 35.7 mmhg (23-27)
--- NOTE | 2022-02-15 01:09 | ECG_ITS ---
APPROVED REPORT Exam: Resting ECG HR:76 bpm ECG Measurements Heart Rate 76 AXES AL 172 P 83 QRSd 85 QRS 86 QT 381 T 61 QTc 411 Conclusion SINUS RHYTHM POSSIBLE RIGHT VENTRICULAR CONDUCTION DELAY Old septal changes ABNORMAL ECG INTERPRETATION BASED ON A DEFAULT AGE OF 40 YEARS UNCONFIRMED REPORT Electronically signed by : Tao Mcgowan MD 02/15/2022 17:59:10
[2022-02-15 01:20] LABS: Microscopic, Urine URINE MICROSCOPIC (MICROSCOPIC)
[2022-02-15 01:25] LABS: Basophils # 0.1 K/mm3 (0-0.2); Basophils % 0.6 % (0.1-2.0); Eosinophils % 0.2 % (0.1-12.0); Hematocrit 33.5 % (37.0-47.0); Hemoglobin 10.9 g/dL (12.2-16.2); Lymphocytes # 0.7 K/mm3 (0.7-4.5); Lymphocytes % 5.8 % (10-50); Mean Corpuscular HGB Conc 32.5 g/dL (31.8-35.4); Mean Corpuscular Hemoglobin 33.1 pg (27.0-31.2); Mean Corpuscular Volume 101.8 fl (81-99); Mean Platelet Volume 7.9 fl (7.4-10.4); Monocytes # 0.6 K/mm3 (0.1-1.0); Monocytes % 4.9 % (1.7-9.3); Neutrophils # 10.1 K/mm3 (1.8-7.8); Neutrophils % 88.5 % (37.0-80.0); Platelet Count 370 K/mm3 (142-424); Red Blood Count 3.29 M/mm3 (4.20-5.40); Red Cell Distribution Width 14.4 % (11.5-17.5); White Blood Count 11.4 K/mm3 (4.8-10.8)
[2022-02-15 01:27] LABS: Appearance,Urine CLEAR (Clear); Blood, Urine Negative (Negative); Color,Urine YELLOW (Yellow); Glucose,Urine (UA) Negative (Negative); Ketones,Urine Negative (Negative); Leukocyte Esterase,Urine Negative (Negative); Nitrate,Urine Negative (Negative); PH,Urine 5.5 (5.0-8.5); Protein,Urine TRACE (Negative); Specific Gravity, Urine >= 1.030 (1.005-1.030); Urobilinogen,Urine 0.2 EU/dl (0.2)
[2022-02-15 01:30] LABS: Coronavirus 19, PCR Not Detected (NotDetected); Influenza A, PCR Not Detected (NotDetected); Influenza B, PCR Not Detected (NotDetected); MANUAL DIFFERENTIAL MANUAL DIFFERENTIAL (MANUAL DIFF)
[2022-02-15 01:36] LABS: Alanine Aminotransferase 38 U/L (12-78); Albumin Level 3.8 g/dl (3.5-5.0); Albumin/Globulin Ratio 1.5 (1.1-1.8); Alkaline Phosphatase 119 U/L (38-126); Anion Gap 10.4 mEq/L (5-15); Aspartate Amino Transferase 76 U/L (14-36); Bilirubin,Total 0.2 mg/dl (0.2-1.3); Blood Urea Nitrogen 32 mg/dl (7-17); Calcium 8.6 mg/dl (8.4-10.2); Carbon Dioxide 36 mmol/L (22.0-30.0); Chloride 98 mmol/L (98-107); Creatinine Clearance Estimated 32 mL/min (50-200); Estimated Glomerular Filt Rate 36 ml/min (>60); GFR (African American) 43 ML/MIN (>60); Globulin 2.5 g/dL (1.3-3.2); Glucose 160 mg/dl (74-100); Potassium 4.4 mmoL/L (3.5-5.1); Sodium 140 mmol/L (136-145); Total Protein,Serum 6.3 g/dl (6.3-8.2)
[2022-02-15 01:39] LABS: Bilirubin,Urine Negative (Negative)
[2022-02-15 01:40] LABS: Amorphous Sediment,Urine Trace /lpf; Mucus,Urine 4+ /lpf; Renal Epithelial Cells,Urine Occasional #/lpf (0)
[2022-02-15 01:44] LABS: Lymphocytes % 10 % (10-50); Macrocytosis 2+; Monocytes % 1 % (2-9); Neutrophils % 83 % (42-76); Platelet Estimate Normal; Total Cells Counted 100
[2022-02-15 01:50] LABS: Amphetamine/Metha Screen,Urine Negative ng/ml (<1000)
[2022-02-15 01:51] LABS: Barbiturates Screen,Urine Negative ng/ml (<200); Troponin I 0.31 ng/ml (0.00-0.034)
[2022-02-15 01:52] LABS: Allen's Test Y; Benzodiazepines Screen,Urine Negative ng/ml (<200); Cannabinoid Screen,Urine Positive ng/ml (<50); Oxygen 4 %; Source Right Femoral
[2022-02-15 01:53] LABS: ABG PCO2 76.3 mmhg (35.0-45.0); Cocaine Screen,Urine Negative ng/ml (<300); Methadone Screen,Urine Negative ng/ml (<300)
--- NOTE | 2022-02-15 01:53 | PC.NURSE ---
Dr. Briggs notified of critical troponin
[2022-02-15 01:54] LABS: Phencyclidine Screen,Urine Negative ng/ml (<25)
--- NOTE | 2022-02-15 01:54 | PC.NURSE ---
Dr. Briggs s/w [facility]
[2022-02-15 01:55] LABS: Opiate Screen,Urine Positive ng/ml (<300)
--- NOTE | 2022-02-15 02:00 | PC.NURSE ---
Per [facility]- no hemorrhage on head ct. Asked MD if her would like Head & Neck angio, no new orders at this time.
--- NOTE | 2022-02-15 02:09 | HMH.EDAMS ---
Discharge Plan Disposition Patient Disposition: Xfer Short-Term Hosp Prescriptions Prescriptions: No Action aspirin [Adult Low Dose Aspirin] 81 mg tablet,delayed release (DR/EC) 81 mg PO DAILY oxycodone 10 mg tablet See Rx Instructions .ROUTE .COMPLEX 28 Days Qty: 150 0RF Rx Instructions: Take one tablet qid and 1 tablet qhs; fill first oxycodone 10 mg tablet 10 mg PO QID Qty: 120 0RF gabapentin 800 mg tablet 800 mg PO QID Qty: 120 1RF clonazepam 0.5 mg tablet 0.5 mg PO BID Qty: 60 1RF furosemide [Lasix] 20 mg tablet 20 mg PO Q OTHER DAY Qty: 20 0RF cholecalciferol (vitamin D3) 25 mcg (1,000 unit) tablet 25 mcg PO DAILY Qty: 90 3RF metoprolol succinate 100 mg tablet extended release 24 hr 100 mg PO DAILY Qty: 90 3RF ipratropium-albuterol 0.5 mg-3 mg(2.5 mg base)/3 mL solution for nebulization 3 ml inhalation TID Qty: 180 3RF pravastatin 40 mg tablet See Rx Instructions .ROUTE .COMPLEX Qty: 90 3RF Dose Instruction: TAKE ONE TABLET BY MOUTH AT BEDTIME FOR CHOLESTEROL Rx Instructions: TAKE ONE TABLET BY MOUTH AT BEDTIME FOR CHOLESTEROL clopidogrel 75 mg tablet See Rx Instructions .ROUTE .COMPLEX Qty: 90 3RF Dose Instruction: TAKE ONE TABLET BY MOUTH ONCE A DAY Rx Instructions: TAKE ONE TABLET BY MOUTH ONCE A DAY cetirizine 10 mg tablet See Rx Instructions .ROUTE .COMPLEX Qty: 90 3RF Dose Instruction: TAKE ONE TABLET BY MOUTH ONCE A DAY Rx Instructions: TAKE ONE TABLET BY MOUTH ONCE A DAY Breztri Aerosphere 160-9-4.8 mcg/actuation HFA aerosol inhaler 2 inh inhalation BID Qty: 10.7 5RF ergocalciferol (vitamin D2) 1,250 MCG capsule 1,250 unit PO WEEKLY escitalopram oxalate 20 MG tablet 20 mg PO DAILY buspirone 10 mg tablet 10 mg PO BID albuterol sulfate [ProAir HFA] 90 mcg/actuation HFA aerosol inhaler 2 puff inhalation Q4HP PRN (Reason: Shortness Of Breath) Trelegy Ellipta 100-62.5-25 mcg blister with device 1 inh inhalation DAILY Qty: 28 2RF Referrals Follow up/Referrals: Justen Briggs MD [Primary Care Provider] - See instructions Clinical Impressions Clinical Impression: COPD exacerbation, Tobacco use disorder, Respiratory failure with hypercapnia, Acute CVA (cerebrovascular accident), LORETTA (acute kidney injury), Elevated troponin Stand Alone Forms Stand Alone Forms: Transfer Record - ED Instructions Patient Instructions: DI for Altered Mental Status Discharge ED Provider: Justen Briggs Altered Mental Status HPI General Chief Complaint: Altered Mental Status Stated Complaint: SOA Time Seen by Provider: 02/15/22 02:09 Mode of Arrival: EMS Source of Information: EMS and Medical Record Limitations: respiratory distress Description of Symptoms (Recalled from ER Triage Doc. by RN): Pt brought in by EMS d/t unresponsiveness. Per EMS, family called when they found the pt down on the floor and would not wake up but noted to be breathing ok. EMS stated sat was low 80s and HRlow 100s. They placed her on 2LPM NC and sat increased to 92% but she would not respond. Pt is moving her arms and legs but not following commands. Bruise and edema noted to R forehead. Brusing and scrape scattered t/o pt's body. No incontince noted. No bleeding or drainage from nose or ears.No chin sign present. ABD is soft and non-tender. Pt was afebrile on arrival. History of Present Illness HPI narrative: pt with known copd and chronic pain was at baseline sat and family felt ok till about 1600 on tuesday but found on floor tonight around mn and brought to the ed for eval - reported to be compliant with meds - no other hx from family MD complaint: altered mental status and decreased responsiveness Onset (ago): hour(s) Timing confirmed by: family member Severity: severe Consistency of symptoms: unknown Context: COPD Related Data Home Medications Medication Instructions Recor
--- NOTE | 2022-02-15 02:32 | CT_ITS ---
PROCEDURE INFORMATION: Exam: CTA Neck With Contrast Exam date and time: 02/15/2022 3:00 AM Age: 61 years old Clinical indication: Stroke-like symptoms; Altered mental status/memory loss and other: Abnormal CT scan head wo contrast tonight; Additional info: Abd head CT TECHNIQUE: Imaging protocol: Computed tomographic angiography of the neck with contrast. 3D rendering (Not supervised by radiologist): MIP and/or 3D reconstructed images were created by the technologist. Radiation optimization: All CT scans at this facility use at least one of these dose optimization techniques: automated exposure control; mA and/or kV adjustment per patient size (includes targeted exams where dose is matched to clinical indication); or iterative reconstruction. Contrast material: ISOVUE 370; Contrast volume: 100 ml; Contrast route: INTRAVENOUS (IV); COMPARISON: CT CERVICAL SPINE WO CON 02/15/2022 1:19 AM FINDINGS: Right common carotid artery: No stenosis. No dissection or occlusion. Right internal carotid artery: No stenosis of the extracranial segment. No dissection or occlusion. Right external carotid artery: No occlusion or stenosis of the origin. Left common carotid artery: No stenosis. No dissection or occlusion. Left internal carotid artery: No stenosis of the extracranial segment. No dissection or occlusion. Left external carotid artery: No occlusion or stenosis of the origin. Right vertebral artery: There is cut off of contrast in the V3 segment right vertebral artery. Left vertebral artery: No stenosis. No dissection or occlusion. Soft tissues: Normal. No significant soft tissue swelling. Bones/joints: No acute fracture. Lungs: The lungs demonstrate panlobular emphysema. No acute cardiopulmonary process. IMPRESSION: 1. Findings are consistent with age indeterminate occlusion of the right vertebral artery at V3. 2. The remaining cervical great vessels are without stenosis or occlusion. REFERENCES: NASCET CRITERIA. The degree of stenosis in the cervical segment of the internal carotid artery is based on NASCET criteria. Normal is no stenosis. Mild is less than 50% stenosis. Moderate is 50-69% stenosis. Severe is 70% to 99% stenosis. Total occlusion is no detectable patent lumen.
--- NOTE | 2022-02-15 02:32 | CT_ITS ---
PROCEDURE INFORMATION: Exam: CTA Head With Contrast, Arteriography Exam date and time: 02/15/2022 3:00 AM Age: 61 years old Clinical indication: Stroke-like symptoms; Altered mental status/memory loss and other: Abnormal findings on CT head wo contrast; Additional info: Abd head CT altered mental status unresponsive TECHNIQUE: Imaging protocol: Computed tomographic angiography of the head with contrast. Exam focused on the arteries. 3D rendering (Not supervised by radiologist): MIP and/or 3D reconstructed images were created by the technologist. Radiation optimization: All CT scans at this facility use at least one of these dose optimization techniques: automated exposure control; mA and/or kV adjustment per patient size (includes targeted exams where dose is matched to clinical indication); or iterative reconstruction. Contrast material: ISOVUE 370; Contrast volume: 100 ml; Contrast route: INTRAVENOUS (IV); COMPARISON: CT HEAD/BRAIN WO CON 02/15/2022 1:15 AM FINDINGS: ANTERIOR CIRCULATION: Right internal carotid artery: Intracranial segment is patent with no significant stenosis. No aneurysm. Right middle cerebral artery: No occlusion or significant stenosis. No aneurysm. Right anterior cerebral artery: No occlusion or significant stenosis. No aneurysm. Left internal carotid artery: Intracranial segment is patent with no significant stenosis. No aneurysm. Left middle cerebral artery: There is abrupt cut off of contrast involving the mid M1 segment left middle cerebral artery. There is reconstitution of some distal M2 through M6 branches. Left anterior cerebral artery: No occlusion or significant stenosis. No aneurysm. POSTERIOR CIRCULATION: Right vertebral artery: There is occlusion of the V4 segment right vertebral artery with partial reconstitution of the distal segment at the vertebrobasilar junction. Left vertebral artery: No occlusion or significant stenosis. No aneurysm. Basilar artery: No evidence of straight basilar artery occlusion or stenosis. See Right vertebral artery finding. Right posterior cerebral artery: No occlusion or significant stenosis. No aneurysm. Left posterior cerebral artery: No occlusion or significant stenosis. No aneurysm. Brain: There is encephalomalacia of the right occipital lobe CAGE OPERATOR distribution. There is hypoattenuation involving the left MCA distribution in the left cerebral hemisphere with gyriform isoattenuation consistent with a subacute infarct. Cerebral ventricles: No ventriculomegaly. Bones/joints: Unremarkable. No acute fracture. Soft tissues: Are there is right frontal scalp soft tissue swelling. IMPRESSION: 1. Acute to subacute cytotoxic edema in the left middle cerebral artery territory consistent with ischemic stroke. 2. There is evidence of acute large vessel occlusion involving the M1 segment left middle cerebral artery. There is scattered reconstitution of distal cortical branches. 3. There is occlusion of the V4 segment right vertebral artery with partial reconstitution at the vertebrobasilar junction.
--- NOTE | 2022-02-15 02:33 | PC.NURSE ---
Payal jimenez from Dr. Briggs for HEAD & Neck CTA. Also, 1 L NS for hydration
--- NOTE | 2022-02-15 02:40 | PC.NURSE ---
This RN & Bernice BOYER escorted pt with abrasive grader helper for CTAs. Changed off of Bipap to 2LPM NC and sats holding well @ 96-98%.
--- NOTE | 2022-02-15 03:12 | PC.NURSE ---
Pt back in room following head & neck cta. [facility] chat open by Dr. Hernandez- reports No ELVO.
[2022-02-15 03:29] LABS: ABG Base Excess 4.4 mmol/L (-2.4-2.3); ABG HCO3 31.4 mmhg (22.0-26.0); ABG Oxygen Saturation 96 % (90-100); ABG PH 7.27 mmol/L (7.35-7.45); ABG PO2 90.4 mmhg (80-100); ABG TCO2 33.5 mmhg (23-27)
[2022-02-15 03:30] LABS: Allen's Test Y; Oxygen 35 %; Source Right Radial; Vent Rate 20
[2022-02-15 03:31] LABS: ABG PCO2 70.4 mmhg (35.0-45.0)
--- NOTE | 2022-02-15 03:48 | PC.NURSE ---
Dr. Briggs s/w [facility] regarding CTAs
--- NOTE | 2022-02-15 03:56 | PC.NURSE ---
Dr. Briggs s/w Stroke
--- NOTE | 2022-02-15 04:10 | PC.NURSE ---
Respiratory therapy at bedside
--- NOTE | 2022-02-15 04:11 | PC.NURSE ---
Per MD request, patient was switched from bipap to 3L NC.
--- NOTE | 2022-02-15 04:13 | PC.NURSE ---
Pt accepted at by Dr. Garcia
--- NOTE | 2022-02-15 04:19 | PC.NURSE ---
Patient is approved to transport with [facility]. Patient is not required to be intubated for transfer as patient is able to protect her airway, satting 99% on 3L NC.
--- NOTE | 2022-02-15 04:25 | PC.NURSE ---
Pt pina updated via phone by Marixa Vazquez RN
--- NOTE | 2022-02-15 04:31 | PC.NURSE ---
Attempted to call Daughter Myra to update her on her mothers condition. Phone went straight to voicemail. Notified Daughter that patient was being sent to [facility].
--- NOTE | 2022-02-15 04:32 | PC.NURSE ---
Late Entry: [facility] CHAT: @ 0313, Neurosurgeon Dr. Lawrence Islas states L M1 high grade stenosis and asking for the story. Dr. Briggs notified of this information and given a response, which this RN typed. @0317 Dr. Islas would like NIHSS- notiifed of GCS of 7. and obtunded status @0324 Dr. Islas states MCA stenosis would not causea obtundation. There must be another cause. Generally fo this type of (CVA) disease, we recommend dual anti-platelet therapy and follow-up with one of us. We can stent this type of stenosis but the criteria are very strict and require [failure of medical therapy] with dual antiplatelet. Dr. Briggs notiifed of this information. No new orders. @0328 Gave detailed hx of circumstances. @0329 Dr. Hernandez states needs mri further evaluation of mental status . Dr. Briggs notified of this. @0332 Dr. Hernandez states Extensive hypo density throughout left cerebral hemispheres on CTH. Also involved basal ganglia - left > right. Dr Briggs notified of this. @0334 Dr. Islas states agreed- recommed calling [facility] for trasnfer. While she's not a candidate for emergent intervention, needs more extensive work up as Dr. Hernandez states. Dr. Briggs notified of this, no new orders. @0334 Dr. Hernandez states Encephalomalacia in right parietal-occipital region. Possible midbrain involvement. Unusual pathology. agreed. The right sided lesions are not explained by left M1 stenosis. The right M1 doesn't look severely narrow. All the lesions do look like infarcts. Old and new . Dr. Briggs notified of this continued chat information. No new orders at this time.
--- NOTE | 2022-02-15 04:33 | PC.NURSE ---
[facility] called to inform [facility] was inbound with 10 minute ETA
--- NOTE | 2022-02-15 05:01 | PC.NURSE ---
Daughter Benita called regarding mother. Explained to daughter that her mother had had a stroke and was being airlifted to the [facility]. Daughter verbalized understanding.
--- NOTE | 2022-02-15 05:04 | PC.NURSE ---
Report given to [facility]- [facility]. Pt left via [facility]
--- NOTE | 2022-02-15 05:58 | PC.NURSE ---
EMS arrived with pt, received report from [facility].
== END 2022-02-15 05:10 | disposition short-term general hospital (02) ==
PROVIDERS: Emergency Provider Emergency Medicine; PCP Emergency Medicine
DX: R41.82 Altered mental status, unspecified (principal); R55 Syncope and collapse; J96.02 Acute respiratory failure with hypercapnia; R79.89 Other specified abnormal findings of blood chemistry; N17.9 Acute kidney failure, unspecified; I25.10 Atherosclerotic heart disease of native coronary artery without angina pectoris; I74.09 Other arterial embolism and thrombosis of abdominal aorta; M54.16 Radiculopathy, lumbar region; M51.36 Other intervertebral disc degeneration, lumbar region; M89.38 Hypertrophy of bone, other site; G89.29 Other chronic pain; E55.9 Vitamin D deficiency, unspecified; J43.9 Emphysema, unspecified; F41.9 Anxiety disorder, unspecified; Z79.01 Long term (current) use of anticoagulants; F17.210 Nicotine dependence, cigarettes, uncomplicated; Z79.51 Long term (current) use of inhaled steroids; Z79.82 Long term (current) use of aspirin; Z79.899 Other long term (current) drug therapy; Z88.0 Allergy status to penicillin; Z88.1 Allergy status to other antibiotic agents; Z88.3 Allergy status to other anti-infective agents; Z88.8 Allergy status to other drugs, medicaments and biological substances; Z95.5 Presence of coronary angioplasty implant and graft; Z68.21 Body mass index [BMI] 21.0-21.9, adult; Z86.14 Personal history of Methicillin resistant Staphylococcus aureus infection
CPT/HCPCS: 51702; 70450; 70496; 70498; 71045; 72125; 72170; 80053; 80305; 81001; 82803; 83605; 84484; 85007; 85025; 87040; 93005; 96360; 99285; C9803; Q9967; U0003; U0005